=== PATIENT | female | born 1995 | race African-American/Black ===

== ENCOUNTER 2016-06-19 18:08 | Inpatient (IN) | payer OTHER ==
[2016-06-19] MEDS ORDERED: LACTATED RINGERS 1,000 ML IV SCH ×2 (19:00→21:00)
[2016-06-19] MEDS ORDERED: LACTATED RINGERS 500 ML IV ONE (19:00)
[2016-06-19] MEDS ORDERED: BICITRA ONE (19:13)
[2016-06-19] MEDS ORDERED: PEPCID IV ONE (19:13)
[2016-06-19] MEDS ORDERED: ANCEF/STERILE WATER 2 GM/20 ML 0 GM/0 ML SYRINGE IV ONE (19:13)
[2016-06-19] MEDS ORDERED: REGLAN ONE (19:13)
[2016-06-19] MEDS ORDERED: PITOCin/NS 20 UNIT/1000ML DRIP 20,000 MILLIUNITS/1,000 ML BAG IV ONE (19:13)
[2016-06-19] MEDS ORDERED: STADOL ONE (19:54)
[2016-06-19] MEDS ORDERED: STADOL IV PRN (20:23)
[2016-06-19] MEDS ORDERED: NARCAN 0.4 MG/1 ML IV PRN (20:23)
[2016-06-19] MEDS ORDERED: BRETHINE IVP PRN (20:23)
[2016-06-19] MEDS ORDERED: PHENERGAN PO PRN (20:23)
[2016-06-19] MEDS ORDERED: SUBLIMAZE IV PRN (20:23)
[2016-06-19] MEDS ORDERED: MINERAL OIL PO PRN (20:23)
[2016-06-19] MEDS ORDERED: ZOFRAN IV PRN (20:23)
[2016-06-19] MEDS ORDERED: BRETHINE SUB-Q PRN (20:30)
[2016-06-19] MEDS ORDERED: ePHEDrine SULFATE IV PRN ×2 (20:32→21:48)
--- NOTE | 2016-06-19 20:40 | History and Physical Report ---
History of Present Illness Date of examination: 06/19/16 Date of admission: 06/19/16 19:46 Chief complaint: severe abdominal pains History of present illness: Pt is a 20yo BF EDC 08/25/16; EGA 30 3/7 weeks presents to [facility] L&D complaining of acute severe abdominal pain that begun ~ 5pm whilst attending a baby shower. She denies vaginal bleeding or ROM. She received care in [place] and course has been unremarkable. She had a normal u/s yesterday, but today Ob u/s showed IUFD with echogenic mass @ placenta ( possible abruption). No records are available. Past History Past Medical History: no pertinent history Past Surgical History: no surgical history Family/Genetic History: none Social history: no significant social history, single - Obstetrical History Expected Date of Delivery: 08/25/16 Actual Gestation: 30 Week(s) 4 Day(s) : 2 Medications and Allergies Allergies Allergy/AdvReac Type Severity Reaction Status Date / Time No Known Allergies Allergy Verified 06/12/16 10:38 Home Medications Medication Instructions Recorded Confirmed Last Taken Type Multiple Vitamins For Women 1 tab PO DAILY 06/12/16 06/12/16 06/12/16 08:30 History 1 Active Meds: Active Medications Butorphanol Tartrate (Stadol) 2 mg IV Q2H PRN PRN Reason: Pain , Severe (7-10) Ephedrine Sulfate (Ephedrine Sulfate) 10 mg IV Q2M PRN PRN Reason: Hypotension Stop: 06/19/16 20:37 Fentanyl (Sublimaze) 100 mcg IV Q2H PRN PRN Reason: Labor Pain Lactated Ringer's (Lactated Ringers) 1,000 mls @ 125 mls/hr IV DIRECT ELLA Lactated Ringer's (Lactated Ringers) 1,000 mls @ 125 mls/hr IV DIRECT ELLA Oxytocin/Sodium Chloride (Pitocin/Ns 20 Unit/1000ml Drip) 20,000 milliunits in 1,000 mls @ 125 mls/hr IV DIRECT ELLA Oxytocin/Sodium Chloride (Pitocin/Ns 30 Unit/500ml) 30,000 milliunits in 500 mls @ 1 mls/hr IV TITR ELLA; 1 MILLIUNITS/MIN PRN Reason: Protocol Oxytocin/Sodium Chloride (Pitocin/Ns 30 Unit/500ml) 30,000 milliunits in 500 mls @ 125 mls/hr IV TITR ELLA PRN Reason: Protocol Mineral Oil (Mineral Oil) 30 ml PO QHS PRN PRN Reason: Constipation Naloxone HCl (Narcan 0.4 Mg/1 Ml) 0.1 mg IV Q2MIN PRN PRN Reason: Res Rate </= 8 or 02 SAT < 92% Ondansetron HCl (Zofran) 4 mg IV Q8H PRN PRN Reason: Nausea And Vomiting Promethazine HCl (Phenergan) 25 mg PO Q6H PRN PRN Reason: Nausea And Vomiting Review of Systems All systems: negative - Vital Signs Vital signs: Vital Signs Pulse Pulse Ox 58 L 100 06/19/16 18:22 06/19/16 18:22 Temp Pulse Resp BP Pulse Ox 73 14 140/87 100 06/19/16 20:01 06/19/16 19:55 06/19/16 20:01 06/19/16 19:22 - Physical Exam Breasts: Positive: deferred Cardiovascular: Regular rate Lungs: Positive: Clear to auscultation Abdomen: Positive: normal appearance, guarding Genitourinary (Female): Positive: normal external genitalia Vagina: Positive: normal moisture Uterus: Positive: enlarged Extremities: Positive: normal - Obstetrical FHR: other (No FHT's) Uterine Contraction Monitor Mode: External Cervical Dilatation: 1 Cervical Effacement Percentage: 50 Uterine Contraction Pattern: Irregular Uterine Contraction Intensity: Moderate Results Result Diagrams: 06/19/16 20:37 All other labs normal. Ultrasound: report reviewed Assessment and Plan - Patient Problems (1) 30 weeks gestation of Onset Date: 06/19/16 Current Visit: Yes Status: Acute Plan to address problem: A: IUP @ 30 3/7 weeks IUFD P: Admit to L&D for expectant vaginal Obtain labs including urine drug screen (2) Intrauterine in Onset Date: 06/19/16 Current Visit: Yes Status: Acute Qualifiers: Fetus number: single or unspecified fetus Qualified Code(s): O36.4XX0 - Maternal care for intrauterine , not applicable or unspecified
[2016-06-19 20:52] LABS: Urine Drugs of Abuse Note Disclamer
[2016-06-19] MEDS ORDERED: ePHEDrine SULFATE ONE (20:54)
[2016-06-19 20:56] LABS: Hematocrit 33.8 % (30.3-42.9); Hemoglobin 11.1 gm/dl (10.1-14.3); Mean Corpuscular HGB Conc 33 % (30-34); Mean Corpuscular Hemoglobin 28 pg (28-32); Mean Corpuscular Volume 84 fl (79-97); Platelet Count 139 K/mm3 (140-440); Red Blood Count 4.03 M/mm3 (3.65-5.03); Red Cell Distribution Width 14.2 % (13.2-15.2)
[2016-06-19 21:00] LABS: White Blood Count 23.8 K/mm3 (4.5-11.0)
[2016-06-19] MEDS ORDERED: PITOCin/NS 30 UNIT/500ML 30,000 MILLIUNITS/500 ML BAG IV SCH (21:00)
[2016-06-19] MEDS ORDERED: PITOCin/NS 20 UNIT/1000ML DRIP 20,000 MILLIUNITS/1,000 ML BAG IV SCH (21:00)
[2016-06-19 21:19] LABS: Bacteria,Urine 1+ /HPF (Negative); Mucus,Urine 1+ /HPF
[2016-06-19 21:31] LABS: Bilirubin,Urine Negative (Negative); Blood,Urine Moderate (Negative); Ketones,Urine Negative (Negative); Nitrite,Urine Negative (Negative); PH,Urine 6.5 (5.0-7.0); Urobilinogen,Urine 0.2 mg/dL (<2.0)
[2016-06-19 21:32] LABS: Leukocyte Esterase,Urine Negative (Negative)
[2016-06-19] MEDS ORDERED: fentaNYL-BUPIV 2 MCG/ML-0.125% 200 MCG/100 ML BAG EPIDURAL ONE (21:44)
--- NOTE | 2016-06-19 21:47 | Anesthesia Consultation ---
Anesthesia Consult and Med Hx Date of service: 06/19/16 - Airway Anesthetic Teeth Evaluation: Good ROM Head & Neck: Adequate Mental/Hyoid Distance: Adequate Mallampati Class: Class II Intubation Access Assessment: Probably Good - Pulmonary Exam CTA: Yes - Cardiac Exam Cardiac Exam: RRR - Pre-Operative Health Status ASA Pre-Surgery Classification: ASA2 Proposed Anesthetic Plan: Epidural, Spinal - Pulmonary Hx Smoking: Yes Hx Asthma: No - Cardiovascular System Hx Hypertension: No - Central Nervous System Hx Seizures: No Hx Psychiatric Problems: No - Endocrine Hx Renal Disease: No Hx Hypothyroidism: No Hx Hyperthyroidism: No - Hematic Hx Anemia: No Hx Sickle Cell Disease: No - Other Systems Hx Alcohol Use: No Hx Substance Use: Yes (marijuana) Hx Obesity: Yes - Additional Comments Anesthesia Medical History Comments: IUFD @ 30 WEEKS
[2016-06-19 21:49] LABS: HIV-1 Antigen p24 Non React (Non React); HIVR-1/2 Ab Non React (Non React)
[2016-06-19] MEDS ORDERED: fentaNYL-BUPIV 2 MCG/ML-0.125% 200 MCG/100 ML BAG EPIDURAL SCH (22:00)
[2016-06-19 22:08] LABS: Anisocytosis 1+; Basophils % (Manual) 0 % (0.0-1.8); Blastocytes % (Manual) 0 %; Diff Status Complete; Eosinophils % (Manual) 0 % (0.0-4.3); Platelet Estimate Consistent w Auto
[2016-06-19] MEDS: PITOCin/NS 30 UNIT/500ML 30,000 MILLIUNITS/500 ML BAG IV SCH (22:28)
[2016-06-20] MEDS: PITOCin/NS 30 UNIT/500ML 30,000 MILLIUNITS/500 ML BAG IV SCH ×2 (01:22→03:14)
[2016-06-20] MEDS ORDERED: WATER FOR IRRIG STERILE IR ONE (03:06)
[2016-06-20] MEDS ORDERED: NACL 0.9% IR ONE (03:06)
--- NOTE | 2016-06-20 03:18 | Progress Note ---
Assessment and Plan - Patient Problems (1) 30 weeks gestation of Onset Date: 06/19/16 Current Visit: Yes Status: Acute Plan to address problem: A: IUP @ 30 3/7 weeks IUFD Anuria Maternal tachycardia P: Will obtain CBC, CMP, PT,PTT and Fibrinogen - assess for occult bleeding, possible uterine rupture (2) Intrauterine in Onset Date: 06/19/16 Current Visit: Yes Status: Acute Qualifiers: Fetus number: single or unspecified fetus Qualified Code(s): O36.4XX0 - Maternal care for intrauterine , not applicable or unspecified (3) Anuria Onset Date: 06/20/16 Current Visit: Yes Status: Acute (4) Tachycardia with heart rate 121-140 beats per minute Onset Date: 06/20/16 Current Visit: Yes Status: Acute Subjective - Subjective Date of service: 06/20/16 Principal diagnosis: IUP @ 30 3/7 weeks; IUFD; Anuria Interval history: Pt is resting comfortably with epidural in place. Currently on pitocin 6mu/min and elizabeth q 2mins. Patient reports: loss of fluid (AROM - bloody fluid), vaginal bleeding ( moderate bleeding), no new complaints, no contractions Objective - Vital Signs Vital Signs: Vital Signs - 12hr 06/19/16 06/19/16 06/19/16 18:22 18:27 18:30 Temperature Pulse Rate 58 L 55 L 59 L Respiratory Rate Blood Pressure Blood Pressure [Left Arm] O2 Sat by Pulse 100 100 72 L Oximetry 06/19/16 06/19/16 06/19/16 18:32 18:37 18:38 Temperature Pulse Rate 57 L 53 L 52 L Respiratory Rate Blood Pressure 177/95 Blood Pressure [Left Arm] O2 Sat by Pulse 100 100 Oximetry 06/19/16 06/19/16 06/19/16 18:41 18:42 18:44 Temperature Pulse Rate 70 59 L 70 Respiratory Rate Blood Pressure 152/82 Blood Pressure [Left Arm] O2 Sat by Pulse 99 83 L Oximetry 06/19/16 06/19/16 06/19/16 18:47 18:52 18:55 Temperature Pulse Rate 61 59 L 65 Respiratory Rate Blood Pressure 167/90 135/65 Blood Pressure [Left Arm] O2 Sat by Pulse 100 99 Oximetry 06/19/16 06/19/16 06/19/16 18:57 19:02 19:03 Temperature Pulse Rate 59 L 54 L 62 Respiratory Rate Blood Pressure 133/89 Blood Pressure [Left Arm] O2 Sat by Pulse 99 99 Oximetry 06/19/16 06/19/16 06/19/16 19:05 19:07 19:09 Temperature Pulse Rate 74 79 73 Respiratory Rate Blood Pressure 133/94 Blood Pressure [Left Arm] O2 Sat by Pulse 99 78 L Oximetry 06/19/16 06/19/16 06/19/16 19:10 19:12 19:16 Temperature Pulse Rate 72 107 H 56 L Respiratory Rate Blood Pressure 138/90 118/79 Blood Pressure [Left Arm] O2 Sat by Pulse 99 Oximetry 06/19/16 06/19/16 06/19/16 19:17 19:21 19:22 Temperature Pulse Rate 67 55 L 61 Respiratory Rate Blood Pressure 156/90 Blood Pressure [Left Arm] O2 Sat by Pulse 100 100 Oximetry 06/19/16 06/19/16 06/19/16 19:55 20:01 20:52 Temperature 97.9 F Pulse Rate 73 Respiratory 14 20 20 Rate Blood Pressure 140/87 Blood Pressure 140/87 [Left Arm] O2 Sat by Pulse Oximetry 06/19/16 06/19/16 06/19/16 21:29 21:30 21:35 Temperature Pulse Rate 142 H 137 H 129 H Respiratory Rate Blood Pressure 152/70 144/77 Blood Pressure [Left Arm] O2 Sat by Pulse 99 98 Oximetry 06/19/16 06/19/16 06/19/16 21:36 21:42 21:44 Temperature Pulse Rate 113 H 112 H 111 H Respiratory Rate Blood Pressure 124/77 113/76 112/75 Blood Pressure [Left Arm] O2 Sat by Pulse Oximetry 06/19/16 06/19/16 06/19/16 21:46 21:48 21:50 Temperature Pulse Rate 115 H 114 H 105 H Respiratory Rate Blood Pressure 113/76 111/79 112/78 Blood Pressure [Left Arm] O2 Sat by Pulse 100 Oximetry 06/19/16 06/19/16 06/19/16 21:52 21:53 21:54 Temperature Pulse Rate 110 H 107 H 113 H Respiratory Rate Blood Pressure 114/81 115/83 Blood Pressure [Left Arm] O2 Sat by Pulse 100 Oximetry 06/19/16 06/19/16 06/19/16 21:56 21:58 22:00 Temperature Pulse Rate 106 H 115 H 116 H Respiratory 20 Rate Blood Pressure 115/82 115/84 122/70 Blood Pressure [Left Arm] O2 Sat by Pulse 100 Oximetry 06/19/16 06/19/16 06/19/16 22:02 22:03 22:07 Temperature Pulse Rate 130 H 130 H 126 H Respiratory Rate Blood Pressure 112/88 107/66 Blood Pressure [Left Arm] O2 Sat by Pulse 72 L Oximetry 06/19/16 06/19/16 06/19/16 22:08 22:10 22:12 Temperature Pulse Rate 88 100 H 126 H Respiratory Rate Blood Pressure 115/77 113/79 109/75 Blood Pressure [Left Arm] O2 Sat by Pulse 89 Oximetry 06/19/16 06/19/16 06/19/16 22:13 22:16 22:17 Temperature Pulse Rate 122 H 120 H 106 H Respiratory Rate Blood Pressure 114/57 Blood Pressure [Left Arm] O2 Sat by Pulse 72 L 83 L Oximetry 06/19/16 06/19/16 06/19/16 22:18 22:20 22:22 Temperature Pulse Rate 102 H 110 H 103 H Respiratory Rate Blood Pressure 118/70 108/73 107/73 Blood Pressure [Left Arm] O2 Sat by Pulse 76 L Oximetry 06/19/16 06/19/16 06/19/16 22:23 22:24 22:26 Temperature Pulse Rate 104 H 109 H 122 H Respiratory Rate Blood Pressure 106/75 105/77 Blood Pressure [Left Arm] O2 Sat by Pulse 92 Oximetry 06/19/16 06/19/16 06/19/16 22:28 22:30 22:32 Temperature Pulse Rate 126 H 115 H 110 H Respiratory Rate Blood Pressure 108/80 112/80 112/75 Blood Pressure [Left Arm] O2 Sat by Pulse 92 Oximetry 06/19/16 06/19/16 06/19/16 22:33 22:34 22:36 Temperature Pulse Rate 113 H 160 H 121 H Respiratory Rate Blood Pressure 100/63 133/86 Blood Pressure [Left Arm] O2 Sat by Pulse 96 Oximetry 06/19/16 06/19/16 06/19/16 22:38 22:40 22:42 Temperature Pulse Rate 107 H 100 H 126 H Respiratory Rate Blood Pressure 116/82 110/82 108/84 Blood Pressure [Left Arm] O2 Sat by Pulse 100 90 Oximetry 06/19/16 06/19/16 06/19/16 22:43 22:48 22:49 Temperature Pulse Rate 126 H 130 H 112 H Respiratory Rate Blood Pressure 121/77 Blood Pressure [Left Arm] O2 Sat by Pulse 88 76 L Oximetry 06/19/16 06/19/16 06/19/16 22:50 22:52 22:53 Temperature Pulse Rate 106 H 93 H 96 H Respiratory Rate Blood Pressure 114/82 109/76 Blood Pressure [Left Arm] O2 Sat by Pulse 100 Oximetry 06/19/16 06/19/16 06/19/16 22:58 23:03 23:07 Temperature Pulse Rate 113 H 122 H 111 H Respiratory Rate Blood Pressure 181/70 Blood Pressure [Left Arm] O2 Sat by Pulse 100 100 Oximetry 06/19/16 06/19/16 06/19/16 23:08 23:11 23:13 Temperature Pulse Rate 109 H 121 H 129 H Respiratory Rate Blood Pressure 122/70 Blood Pressure [Left Arm] O2 Sat by Pulse 100 100 Oximetry 06/19/16 06/19/16 06/19/16 23:18 23:23 23:28 Temperature Pulse Rate 122 H 110 H 110 H Respiratory Rate Blood Pressure Blood Pressure [Left Arm] O2 Sat by Pulse 100 100 100 Oximetry 06/19/16 06/19/16 06/19/16 23:31 23:33 23:38 Temperature Pulse Rate 114 H 111 H 123 H Respiratory Rate Blood Pressure 110/68 Blood Pressure [Left Arm] O2 Sat by Pulse 100 100 Oximetry 06/19/16 06/19/16 06/19/16 23:43 23:48 23:53 Temperature Pulse Rate 114 H 113 H 130 H Respiratory Rate Blood Pressure Blood Pressure [Left Arm] O2 Sat by Pulse 100 100 100 Oximetry 06/19/16 06/20/16 06/20/16 23:58 00:00 00:03 Temperature Pulse Rate 112 H 123 H 118 H Respiratory Rate Blood Pressure 115/68 Blood Pressure [Left Arm] O2 Sat by Pulse 100 100 Oximetry 06/20/16 06/20/16 06/20/16 00:08 00:13 00:18 Temperature Pulse Rate 138 H 123 H 133 H Respiratory Rate Blood Pressure Blood Pressure [Left Arm] O2 Sat by Pulse 100 100 99 Oximetry 06/20/16 06/20/16 06/20/16 00:23 00:28 00:30 Temperature Pulse Rate 146 H 133 H 136 H Respiratory Rate Blood Pressure 119/75 Blood Pressure [Left Arm] O2 Sat by Pulse 100 100 Oximetry 06/20/16 06/20/16 06/20/16 00:33 00:38 00:43 Temperature Pulse Rate 137 H 126 H 133 H Respiratory Rate Blood Pressure Blood Pressure [Left Arm] O2 Sat by Pulse 100 100 100 Oximetry 06/20/16 06/20/16 06/20/16 00:49 00:54 00:59 Temperature Pulse Rate 129 H 129 H Respiratory Rate Blood Pressure Blood Pressure [Left Arm] O2 Sat by Pulse 89 100 100 Oximetry 06/20/16 06/20/16 06/20/16 01:02 01:04 01:09 Temperature Pulse Rate 136 H 138 H 131 H Respiratory Rate Blood Pressure 159/68 Blood Pressure [Left Arm] O2 Sat by Pulse 100 100 Oximetry 06/20/16 06/20/16 06/20/16 01:14 01:19 01:24 Temperature Pulse Rate 139 H 140 H 131 H Respiratory Rate Blood Pressure Blood Pressure [Left Arm] O2 Sat by Pulse 100 100 100 Oximetry 06/20/16 06/20/16 06/20/16 01:29 01:30 01:34 Temperature Pulse Rate 133 H 155 H 132 H Respiratory Rate Blood Pressure 100/65 Blood Pressure [Left Arm] O2 Sat by Pulse 100 100 Oximetry 06/20/16 06/20/16 06/20/16 01:39 01:44 01:49 Temperature Pulse Rate 130 H 128 H 128 H Respiratory Rate Blood Pressure Blood Pressure [Left Arm] O2 Sat by Pulse 99 99 100 Oximetry 06/20/16 06/20/16 06/20/16 01:54 01:59 02:04 Temperature Pulse Rate 133 H 130 H 124 H Respiratory Rate Blood Pressure Blood Pressure [Left Arm] O2 Sat by Pulse 100 99 99 Oximetry 06/20/16 06/20/16 06/20/16 02:09 02:14 02:19 Temperature Pulse Rate 125 H 124 H 126 H Respiratory Rate Blood Pressure Blood Pressure [Left Arm] O2 Sat by Pulse 100 100 100 Oximetry 06/20/16 06/20/16 06/20/16 02:24 02:29 02:34 Temperature Pulse Rate 113 H 113 H 128 H Respiratory Rate Blood Pressure Blood Pressure [Left Arm] O2 Sat by Pulse 100 100 99 Oximetry 06/20/16 06/20/16 06/20/16 02:39 02:44 02:49 Temperature Pulse Rate 129 H 136 H 128 H Respiratory Rate Blood Pressure Blood Pressure [Left Arm] O2 Sat by Pulse 97 83 L 100 Oximetry 06/20/16 06/20/16 06/20/16 02:54 02:58 03:01 Temperature Pulse Rate 132 H 134 H 134 H Respiratory Rate Blood Pressure 108/69 Blood Pressure [Left Arm] O2 Sat by Pulse 100 100 Oximetry 06/20/16 06/20/16 06/20/16 03:04 03:09 03:12 Temperature Pulse Rate 120 H 122 H 114 H Respiratory Rate Blood Pressure Blood Pressure [Left Arm] O2 Sat by Pulse 100 100 94 Oximetry - Exam Cardiovascular: Regular rate Abdomen: Present: normal appearance, soft Uterus: Present: normal Cervical Dilatation: 2 Cervical Effacement Percentage: 80 station: -2 - Labs Labs: Abnormal Labs 06/19/16 20:37 WBC 23.8 H Plt Count 139 L Seg Neuts % (Manual) 92.5 H Lymphocytes % (Manual) 3.5 L Seg Neutrophils # Man 22.0 H Lymphocytes # (Manual) 0.8 L Monocytes # (Manual) 1.0 H Laboratory Results - last 24 hr 06/19/16 06/19/16 06/19/16 18:45 18:45 20:37 WBC 23.8 H RBC 4.03 Hgb 11.1 Hct 33.8 MCV 84 MCH 28 MCHC 33 RDW 14.2 Plt Count 139 L Add Manual Diff Complete Total Counted 200 Seg Neuts % (Manual) 92.5 H Band Neutrophils % 0 Lymphocytes % (Manual) 3.5 L Reactive Lymphs % (Man) 0 Monocytes % (Manual) 4.0 Eosinophils % (Manual) 0 Basophils % (Manual) 0 Metamyelocytes % 0 Myelocytes % 0 Promyelocytes % 0 Blast Cells % 0 Nucleated RBC % Not Reportable Seg Neutrophils # Man 22.0 H Band Neutrophils # 0.0 Lymphocytes # (Manual) 0.8 L Abs React Lymphs (Man) 0.0 Monocytes # (Manual) 1.0 H Eosinophils # (Manual) 0.0 Basophils # (Manual) 0.0 Metamyelocytes # 0.0 Myelocytes # 0.0 Promyelocytes # 0.0 Blast Cells # 0.0 WBC Morphology Not Reportable Hypersegmented Neuts Not Reportable Hyposegmented Neuts Not Reportable Hypogranular Neuts Not Reportable Smudge Cells Not Reportable Toxic Granulation Not Reportable Toxic Vacuolation Not Reportable Dohle Bodies Not Reportable Pelger-Huet Anomaly Not Reportable Rj Rods Not Reportable Platelet Estimate Consistent w auto Clumped Platelets Not Reportable Plt Clumps, EDTA Not Reportable Large Platelets Not Reportable Giant Platelets Not Reportable Platelet Satelliting Not Reportable Plt Morphology Comment Not Reportable RBC Morphology Not Reportable Dimorphic RBCs Not Reportable Polychromasia Not Reportable Hypochromasia Not Reportable Poikilocytosis Not Reportable Anisocytosis 1+ Microcytosis Not Reportable Macrocytosis Not Reportable Spherocytes Not Reportable Pappenheimer Bodies Not Reportable Sickle Cells Not Reportable Target Cells Not Reportable Tear Drop Cells Not Reportable Ovalocytes Not Reportable Helmet Cells Not Reportable [place] Bodies Not Reportable [place]in[place] Rings Not Reportable [place] Cells Not Reportable Bite Cells Not Reportable Crenated Cell Not Reportable Elliptocytes Not Reportable Acanthocytes (Spur) Not Reportable Rouleaux Not Reportable Hemoglobin C Crystals Not Reportable Schistocytes Not Reportable Malaria parasites Not Reportable Praneeth Bodies Not Reportable Hem Pathologist Commnt No Urine Color Yellow Urine Turbidity Turbid Urine pH 6.5 Ur Specific [place] 1.025 Urine Protein 30 mg/dl Urine Glucose (UA) Negative Urine Ketones Negative Urine Blood Moderate Urine Nitrite Negative Ur Reducing Substances Not Reportable Urine Bilirubin Negative Urine Ictotest Not Reportable Urine Urobilinogen 0.2 Ur Leukocyte Esterase Negative Urine WBC (Auto) 1.0 Urine RBC (Auto) 4.0 U Epithel Cells (Auto) 1.0 Urine Bacteria (Auto) 1+ Urine Mucus 1+ Urine Opiates Screen Presumptive negative Urine Methadone Screen Presumptive negative Ur Barbiturates Screen Presumptive negative Ur Phencyclidine Scrn Presumptive negative Ur Amphetamines Screen Presumptive negative U Benzodiazepines Scrn Presumptive negative Urine Cocaine Screen Presumptive negative U Marijuana (THC) Screen Presumptive positive Drugs of Abuse Note Disclamer Hep Bs Antigen Hepatitis C Antibody HIV 1&2 Antibody Rapid HIV P24 Antigen Rubella IgG Antibody Blood Type Antibody Screen 06/19/16 06/19/16 06/19/16 20:37 20:37 20:37 WBC RBC Hgb Hct MCV MCH MCHC RDW Plt Count Add Manual Diff Total Counted Seg Neuts % (Manual) Band Neutrophils % Lymphocytes % (Manual) Reactive Lymphs % (Man) Monocytes % (Manual) Eosinophils % (Manual) Basophils % (Manual) Metamyelocytes % Myelocytes % Promyelocytes % Blast Cells % Nucleated RBC % Seg Neutrophils # Man Band Neutrophils # Lymphocytes # (Manual) Abs React Lymphs (Man) Monocytes # (Manual) Eosinophils # (Manual) Basophils # (Manual) Metamyelocytes # Myelocytes # Promyelocytes # Blast Cells # WBC Morphology Hypersegmented Neuts Hyposegmented Neuts Hypogranular Neuts Smudge Cells Toxic Granulation Toxic Vacuolation Dohle Bodies Pelger-Huet Anomaly Rj Rods Platelet Estimate Clumped Platelets Plt Clumps, EDTA Large Platelets Giant Platelets Platelet Satelliting Plt Morphology Comment RBC Morphology Dimorphic RBCs Polychromasia Hypochromasia Poikilocytosis Anisocytosis Microcytosis Macrocytosis Spherocytes Pappenheimer Bodies Sickle Cells Target Cells Tear Drop Cells Ovalocytes Helmet Cells [place] Bodies [place] Rings [place]aver[place] Cells Bite Cells Crenated Cell Elliptocytes Acanthocytes (Spur) Rouleaux Hemoglobin C Crystals Schistocytes Malaria parasites Praneeth Bodies Hem Pathologist Commnt Urine Color Urine Turbidity Urine pH Ur Specific [place] Urine Protein Urine Glucose (UA) Urine Ketones Urine Blood Urine Nitrite Ur Reducing Substances Urine Bilirubin Urine Ictotest Urine Urobilinogen Ur Leukocyte Esterase Urine WBC (Auto) Urine RBC (Auto) U Epithel Cells (Auto) Urine Bacteria (Auto) Urine Mucus Urine Opiates Screen Urine Methadone Screen Ur Barbiturates Screen Ur Phencyclidine Scrn Ur Amphetamines Screen U Benzodiazepines Scrn Urine Cocaine Screen U Marijuana (THC) Screen Drugs of Abuse Note Hep Bs Antigen Non-reactive Hepatitis C Antibody Non-reactive HIV 1&2 Antibody Rapid HIV P24 Antigen Rubella IgG Antibody Immune Blood Type B POSITIVE Antibody Screen Negative 06/19/16 20:37 WBC RBC Hgb Hct MCV MCH MCHC RDW Plt Count Add Manual Diff Total Counted Seg Neuts % (Manual) Band Neutrophils % Lymphocytes % (Manual) Reactive Lymphs % (Man) Monocytes % (Manual) Eosinophils % (Manual) Basophils % (Manual) Metamyelocytes % Myelocytes % Promyelocytes % Blast Cells % Nucleated RBC % Seg Neutrophils # Man Band Neutrophils # Lymphocytes # (Manual) Abs React Lymphs (Man) Monocytes # (Manual) Eosinophils # (Manual) Basophils # (Manual) Metamyelocytes # Myelocytes # Promyelocytes # Blast Cells # WBC Morphology Hypersegmented Neuts Hyposegmented Neuts Hypogranular Neuts Smudge Cells Toxic Granulation Toxic Vacuolation Dohle Bodies Pelger-Huet Anomaly Rj Rods Platelet Estimate Clumped Platelets Plt Clumps, EDTA Large Platelets Giant Platelets Platelet Satelliting Plt Morphology Comment RBC Morphology Dimorphic RBCs Polychromasia Hypochromasia Poikilocytosis Anisocytosis Microcytosis Macrocytosis Spherocytes Pappenheimer Bodies Sickle Cells Target Cells Tear Drop Cells Ovalocytes Helmet Cells [place] Bodies [place] Rings Ludivina Cells Bite Cells Crenated Cell Elliptocytes Acanthocytes (Spur) Rouleaux Hemoglobin C Crystals Schistocytes Malaria parasites Praneeth Bodies Hem Pathologist Commnt Urine Color Urine Turbidity Urine pH Ur Specific [place] Urine Protein Urine Glucose (UA) Urine Ketones Urine Blood Urine Nitrite Ur Reducing Substances Urine Bilirubin Urine Ictotest Urine Urobilinogen Ur Leukocyte Esterase Urine WBC (Auto) Urine RBC (Auto) U Epithel Cells (Auto) Urine Bacteria (Auto) Urine Mucus Urine Opiates Screen Urine Methadone Screen Ur Barbiturates Screen Ur Phencyclidine Scrn Ur Amphetamines Screen U Benzodiazepines Scrn Urine Cocaine Screen U Marijuana (THC) Screen Drugs of Abuse Note Hep Bs Antigen Hepatitis C Antibody HIV 1&2 Antibody Rapid Non react HIV P24 Antigen Non react Rubella IgG Antibody Blood Type Antibody Screen
[2016-06-20 03:32] LABS: Basophils % (Auto) 0.2 % (0.0-1.8); Hematocrit 26.4 % (30.3-42.9); Hemoglobin 8.5 gm/dl (10.1-14.3); Mean Corpuscular HGB Conc 32 % (30-34); Mean Corpuscular Hemoglobin 27 pg (28-32); Mean Corpuscular Volume 86 fl (79-97); Red Blood Count 3.08 M/mm3 (3.65-5.03); Red Cell Distribution Width 13.9 % (13.2-15.2); White Blood Count 16.8 K/mm3 (4.5-11.0)
[2016-06-20 03:38] LABS: Platelet Count 58 K/mm3 (140-440)
[2016-06-20] MEDS ORDERED: BICITRA ONE (03:40)
[2016-06-20] MEDS ORDERED: REGLAN ONE (03:40)
[2016-06-20] MEDS ORDERED: ANCEF/STERILE WATER 2 GM/20 ML 2 GM/20 ML SYRINGE IV ONE ×2 (03:41→04:07)
[2016-06-20] MEDS ORDERED: PEPCID IV ONE ×3 (03:41→08:46)
[2016-06-20] MEDS ORDERED: NACL 0.9% 500 ML 500 ML IV ONE ×4 (03:43→23:48)
[2016-06-20 03:48] LABS: Albumin 2.9 g/dL (3.9-5); Albumin/Globulin Ratio 1.3 %; BUN/Creatinine Ratio 8.88; Bilirubin,Total 0.7 mg/dL (0.1-1.2); Calcium 7.6 mg/dL (8.4-10.2); Chloride 103.5 mmol/L (98-107); Total Protein 5.2 g/dL (6.3-8.2)
[2016-06-20 03:54] LABS: INR 1.61 (0.87-1.13)
[2016-06-20 03:55] LABS: Partial Thromboplastin Time 39.4 Sec. (24.2-36.6)
[2016-06-20] MEDS ORDERED: D50W (25GM) IV ONE ×2 (04:05→08:30)
[2016-06-20] MEDS ORDERED: CALCIUM CHLORIDE IVP ONE (04:06)
[2016-06-20] MEDS ORDERED: SODIUM BICARBONATE IV ONE ×3 (04:06→12:00)
[2016-06-20] MEDS ORDERED: CALCIUM CHLORIDE IV ONE ×2 (04:06→12:00)
[2016-06-20] MEDS ORDERED: DIPRIVAN 10 MG/ML IV ONE (04:06)
[2016-06-20] MEDS ORDERED: KIONEX PO ONE (04:07)
--- NOTE | 2016-06-20 04:17 | Event Note ---
Date: 06/20/16 I was consulted to see this patient for hyperkalemia. Nurse informed me that right after consult was called, the patient was rushed to the OR for emergent surgery. I have placed the orders for hyperkalemia to be given, Dr Patrick was notified of these orders
[2016-06-20] MEDS ORDERED: METHERGINE IM ONE (04:20)
[2016-06-20] MEDS ORDERED: ZOFRAN ONE (04:41)
[2016-06-20] MEDS ORDERED: MOTRIN PO PRN (05:00)
[2016-06-20] MEDS ORDERED: MILK OF MAGNESIA PO PRN (05:00)
[2016-06-20] MEDS ORDERED: TYLENOL PO PRN (05:00)
[2016-06-20] MEDS ORDERED: LANSINOH TP PRN ×2 (05:00→12:30)
[2016-06-20] MEDS ORDERED: SODIUM CHLORIDE FLUSH SYRINGE 10 ML IV PRN ×2 (05:00→13:00)
[2016-06-20] MEDS ORDERED: MYLICON PO PRN (05:00)
[2016-06-20] MEDS ORDERED: TORADOL IV PRN (05:00)
[2016-06-20] MEDS ORDERED: PITOCin/NS 20 UNIT/1000ML DRIP 20,000 MILLIUNITS/1,000 ML BAG IV SCH (05:00)
[2016-06-20] MEDS ORDERED: SENOKOT PO PRN (05:00)
[2016-06-20] MEDS ORDERED: NARCAN 0.4 MG/1 ML IV PRN ×2 (05:00→12:30)
[2016-06-20] MEDS ORDERED: TUCKS PAD TP PRN ×2 (05:00→13:00)
--- NOTE | 2016-06-20 05:08 | Anesthesia Day of Surgery ---
Anesthesia Day of Surgery - Day of Surgery Patient Examined: Yes Patient H&P Reviewed: Yes Patient is NPO: Yes
[2016-06-20 05:09] LABS: Fibrinogen < 60 mg/dl (211-480)
--- NOTE | 2016-06-20 05:09 | Post Anesthesia Evaluation ---
- Post Anesthesia Evaluation Patient Participated: Yes Airway Patent: Yes Stable Respiratory Function: Yes Nausea/Vomiting: No Temp > 96.8F: Yes Pain Manageable: Yes Adequeate Hydration: Yes Anesthesia Complications: No Block Receding Appropriately: Not Applicable Patient on Ventilator: No Other Comments: Patient in DIC, ARF, coagulopathic. OR nurse to give medications ordered by hospitalist for hyperkalemia. Blood orders per Dr. Patrick.
[2016-06-20] MEDS ORDERED: NACL 0.9% 1000 ML 1,000 ML ONE (05:10)
--- NOTE | 2016-06-20 05:12 | Progress Note ---
Subjective Date of service: 06/20/16 Principal diagnosis: IUP @ 30 3/7 weeks; IUFD; Anuria, Thrombocytopenia Interval history: Epidural catheter not removed due to platelets being 58,000. Will remain until platelets 100,000. Objective - Constitutional Vitals: Vital Signs - 12hr 06/19/16 06/19/16 06/19/16 18:22 18:27 18:30 Temperature Pulse Rate 58 L 55 L 59 L Respiratory Rate Blood Pressure Blood Pressure [Left Arm] O2 Sat by Pulse 100 100 72 L Oximetry 06/19/16 06/19/16 06/19/16 18:32 18:37 18:38 Temperature Pulse Rate 57 L 53 L 52 L Respiratory Rate Blood Pressure 177/95 Blood Pressure [Left Arm] O2 Sat by Pulse 100 100 Oximetry 06/19/16 06/19/16 06/19/16 18:41 18:42 18:44 Temperature Pulse Rate 70 59 L 70 Respiratory Rate Blood Pressure 152/82 Blood Pressure [Left Arm] O2 Sat by Pulse 99 83 L Oximetry 06/19/16 06/19/16 06/19/16 18:47 18:52 18:55 Temperature Pulse Rate 61 59 L 65 Respiratory Rate Blood Pressure 167/90 135/65 Blood Pressure [Left Arm] O2 Sat by Pulse 100 99 Oximetry 06/19/16 06/19/16 06/19/16 18:57 19:02 19:03 Temperature Pulse Rate 59 L 54 L 62 Respiratory Rate Blood Pressure 133/89 Blood Pressure [Left Arm] O2 Sat by Pulse 99 99 Oximetry 06/19/16 06/19/16 06/19/16 19:05 19:07 19:09 Temperature Pulse Rate 74 79 73 Respiratory Rate Blood Pressure 133/94 Blood Pressure [Left Arm] O2 Sat by Pulse 99 78 L Oximetry 06/19/16 06/19/16 06/19/16 19:10 19:12 19:16 Temperature Pulse Rate 72 107 H 56 L Respiratory Rate Blood Pressure 138/90 118/79 Blood Pressure [Left Arm] O2 Sat by Pulse 99 Oximetry 06/19/16 06/19/16 06/19/16 19:17 19:21 19:22 Temperature Pulse Rate 67 55 L 61 Respiratory Rate Blood Pressure 156/90 Blood Pressure [Left Arm] O2 Sat by Pulse 100 100 Oximetry 06/19/16 06/19/16 06/19/16 19:55 20:01 20:52 Temperature 97.9 F Pulse Rate 73 Respiratory 14 20 20 Rate Blood Pressure 140/87 Blood Pressure 140/87 [Left Arm] O2 Sat by Pulse Oximetry 06/19/16 06/19/16 06/19/16 21:29 21:30 21:35 Temperature Pulse Rate 142 H 137 H 129 H Respiratory Rate Blood Pressure 152/70 144/77 Blood Pressure [Left Arm] O2 Sat by Pulse 99 98 Oximetry 06/19/16 06/19/16 06/19/16 21:36 21:42 21:44 Temperature Pulse Rate 113 H 112 H 111 H Respiratory Rate Blood Pressure 124/77 113/76 112/75 Blood Pressure [Left Arm] O2 Sat by Pulse Oximetry 06/19/16 06/19/16 06/19/16 21:46 21:48 21:50 Temperature Pulse Rate 115 H 114 H 105 H Respiratory Rate Blood Pressure 113/76 111/79 112/78 Blood Pressure [Left Arm] O2 Sat by Pulse 100 Oximetry 06/19/16 06/19/16 06/19/16 21:52 21:53 21:54 Temperature Pulse Rate 110 H 107 H 113 H Respiratory Rate Blood Pressure 114/81 115/83 Blood Pressure [Left Arm] O2 Sat by Pulse 100 Oximetry 06/19/16 06/19/16 06/19/16 21:56 21:58 22:00 Temperature Pulse Rate 106 H 115 H 116 H Respiratory 20 Rate Blood Pressure 115/82 115/84 122/70 Blood Pressure [Left Arm] O2 Sat by Pulse 100 Oximetry 06/19/16 06/19/16 06/19/16 22:02 22:03 22:07 Temperature Pulse Rate 130 H 130 H 126 H Respiratory Rate Blood Pressure 112/88 107/66 Blood Pressure [Left Arm] O2 Sat by Pulse 72 L Oximetry 06/19/16 06/19/16 06/19/16 22:08 22:10 22:12 Temperature Pulse Rate 88 100 H 126 H Respiratory Rate Blood Pressure 115/77 113/79 109/75 Blood Pressure [Left Arm] O2 Sat by Pulse 89 Oximetry 06/19/16 06/19/16 06/19/16 22:13 22:16 22:17 Temperature Pulse Rate 122 H 120 H 106 H Respiratory Rate Blood Pressure 114/57 Blood Pressure [Left Arm] O2 Sat by Pulse 72 L 83 L Oximetry 06/19/16 06/19/16 06/19/16 22:18 22:20 22:22 Temperature Pulse Rate 102 H 110 H 103 H Respiratory Rate Blood Pressure 118/70 108/73 107/73 Blood Pressure [Left Arm] O2 Sat by Pulse 76 L Oximetry 06/19/16 06/19/16 06/19/16 22:23 22:24 22:26 Temperature Pulse Rate 104 H 109 H 122 H Respiratory Rate Blood Pressure 106/75 105/77 Blood Pressure [Left Arm] O2 Sat by Pulse 92 Oximetry 06/19/16 06/19/16 06/19/16 22:28 22:30 22:32 Temperature Pulse Rate 126 H 115 H 110 H Respiratory Rate Blood Pressure 108/80 112/80 112/75 Blood Pressure [Left Arm] O2 Sat by Pulse 92 Oximetry 06/19/16 06/19/16 06/19/16 22:33 22:34 22:36 Temperature Pulse Rate 113 H 160 H 121 H Respiratory Rate Blood Pressure 100/63 133/86 Blood Pressure [Left Arm] O2 Sat by Pulse 96 Oximetry 06/19/16 06/19/16 06/19/16 22:38 22:40 22:42 Temperature Pulse Rate 107 H 100 H 126 H Respiratory Rate Blood Pressure 116/82 110/82 108/84 Blood Pressure [Left Arm] O2 Sat by Pulse 100 90 Oximetry 06/19/16 06/19/16 06/19/16 22:43 22:48 22:49 Temperature Pulse Rate 126 H 130 H 112 H Respiratory Rate Blood Pressure 121/77 Blood Pressure [Left Arm] O2 Sat by Pulse 88 76 L Oximetry 06/19/16 06/19/16 06/19/16 22:50 22:52 22:53 Temperature Pulse Rate 106 H 93 H 96 H Respiratory Rate Blood Pressure 114/82 109/76 Blood Pressure [Left Arm] O2 Sat by Pulse 100 Oximetry 06/19/16 06/19/16 06/19/16 22:58 23:03 23:07 Temperature Pulse Rate 113 H 122 H 111 H Respiratory Rate Blood Pressure 181/70 Blood Pressure [Left Arm] O2 Sat by Pulse 100 100 Oximetry 06/19/16 06/19/16 06/19/16 23:08 23:11 23:13 Temperature Pulse Rate 109 H 121 H 129 H Respiratory Rate Blood Pressure 122/70 Blood Pressure [Left Arm] O2 Sat by Pulse 100 100 Oximetry 06/19/16 06/19/16 06/19/16 23:18 23:23 23:28 Temperature Pulse Rate 122 H 110 H 110 H Respiratory Rate Blood Pressure Blood Pressure [Left Arm] O2 Sat by Pulse 100 100 100 Oximetry 06/19/16 06/19/16 06/19/16 23:31 23:33 23:38 Temperature Pulse Rate 114 H 111 H 123 H Respiratory Rate Blood Pressure 110/68 Blood Pressure [Left Arm] O2 Sat by Pulse 100 100 Oximetry 06/19/16 06/19/16 06/19/16 23:43 23:48 23:53 Temperature Pulse Rate 114 H 113 H 130 H Respiratory Rate Blood Pressure Blood Pressure [Left Arm] O2 Sat by Pulse 100 100 100 Oximetry 06/19/16 06/20/16 06/20/16 23:58 00:00 00:03 Temperature Pulse Rate 112 H 123 H 118 H Respiratory Rate Blood Pressure 115/68 Blood Pressure [Left Arm] O2 Sat by Pulse 100 100 Oximetry 06/20/16 06/20/16 06/20/16 00:08 00:13 00:18 Temperature Pulse Rate 138 H 123 H 133 H Respiratory Rate Blood Pressure Blood Pressure [Left Arm] O2 Sat by Pulse 100 100 99 Oximetry 06/20/16 06/20/16 06/20/16 00:23 00:28 00:30 Temperature Pulse Rate 146 H 133 H 136 H Respiratory Rate Blood Pressure 119/75 Blood Pressure [Left Arm] O2 Sat by Pulse 100 100 Oximetry 06/20/16 06/20/16 06/20/16 00:33 00:38 00:43 Temperature Pulse Rate 137 H 126 H 133 H Respiratory Rate Blood Pressure Blood Pressure [Left Arm] O2 Sat by Pulse 100 100 100 Oximetry 06/20/16 06/20/16 06/20/16 00:49 00:54 00:59 Temperature Pulse Rate 129 H 129 H Respiratory Rate Blood Pressure Blood Pressure [Left Arm] O2 Sat by Pulse 89 100 100 Oximetry 06/20/16 06/20/16 06/20/16 01:02 01:04 01:09 Temperature Pulse Rate 136 H 138 H 131 H Respiratory Rate Blood Pressure 159/68 Blood Pressure [Left Arm] O2 Sat by Pulse 100 100 Oximetry 06/20/16 06/20/16 06/20/16 01:14 01:19 01:24 Temperature Pulse Rate 139 H 140 H 131 H Respiratory Rate Blood Pressure Blood Pressure [Left Arm] O2 Sat by Pulse 100 100 100 Oximetry 06/20/16 06/20/16 06/20/16 01:29 01:30 01:34 Temperature Pulse Rate 133 H 155 H 132 H Respiratory Rate Blood Pressure 100/65 Blood Pressure [Left Arm] O2 Sat by Pulse 100 100 Oximetry 06/20/16 06/20/16 06/20/16 01:39 01:44 01:49 Temperature Pulse Rate 130 H 128 H 128 H Respiratory Rate Blood Pressure Blood Pressure [Left Arm] O2 Sat by Pulse 99 99 100 Oximetry 06/20/16 06/20/16 06/20/16 01:54 01:59 02:04 Temperature Pulse Rate 133 H 130 H 124 H Respiratory Rate Blood Pressure Blood Pressure [Left Arm] O2 Sat by Pulse 100 99 99 Oximetry 06/20/16 06/20/16 06/20/16 02:09 02:14 02:19 Temperature Pulse Rate 125 H 124 H 126 H Respiratory Rate Blood Pressure Blood Pressure [Left Arm] O2 Sat by Pulse 100 100 100 Oximetry 06/20/16 06/20/16 06/20/16 02:24 02:29 02:34 Temperature Pulse Rate 113 H 113 H 128 H Respiratory Rate Blood Pressure Blood Pressure [Left Arm] O2 Sat by Pulse 100 100 99 Oximetry 06/20/16 06/20/16 06/20/16 02:39 02:44 02:49 Temperature Pulse Rate 129 H 136 H 128 H Respiratory Rate Blood Pressure Blood Pressure [Left Arm] O2 Sat by Pulse 97 83 L 100 Oximetry 06/20/16 06/20/16 06/20/16 02:54 02:58 03:01 Temperature Pulse Rate 132 H 134 H 134 H Respiratory Rate Blood Pressure 108/69 Blood Pressure [Left Arm] O2 Sat by Pulse 100 100 Oximetry 06/20/16 06/20/16 06/20/16 03:04 03:09 03:12 Temperature Pulse Rate 120 H 122 H 114 H Respiratory Rate Blood Pressure Blood Pressure [Left Arm] O2 Sat by Pulse 100 100 94 Oximetry 06/20/16 06/20/16 06/20/16 03:14 03:19 03:24 Temperature Pulse Rate 81 100 H 118 H Respiratory Rate Blood Pressure Blood Pressure [Left Arm] O2 Sat by Pulse 100 100 98 Oximetry 06/20/16 06/20/16 06/20/16 03:29 03:34 03:37 Temperature Pulse Rate 78 97 H 107 H Respiratory Rate Blood Pressure Blood Pressure [Left Arm] O2 Sat by Pulse 100 100 91 Oximetry 06/20/16 06/20/16 06/20/16 03:38 03:40 03:44 Temperature Pulse Rate 107 H 111 H 78 Respiratory Rate Blood Pressure 78/45 Blood Pressure [Left Arm] O2 Sat by Pulse 95 66 L Oximetry 06/20/16 06/20/16 06/20/16 03:46 03:48 03:51 Temperature Pulse Rate 105 H 113 H 100 H Respiratory Rate Blood Pressure 79/42 87/45 Blood Pressure [Left Arm] O2 Sat by Pulse 100 Oximetry 06/20/16 06/20/16 03:55 03:56 Temperature Pulse Rate 104 H Respiratory Rate Blood Pressure 89/54 Blood Pressure [Left Arm] O2 Sat by Pulse 89 100 Oximetry - Labs CBC & Chem 7: 06/20/16 03:17 06/20/16 03:17 Labs: Abnormal lab results 06/19/16 06/20/16 06/20/16 Range/Units 20:37 03:17 03:17 WBC 23.8 H 16.8 H (4.5-11.0) K/mm3 RBC 3.08 L (3.65-5.03) M/mm3 Hgb 8.5 L (10.1-14.3) gm/dl Hct 26.4 L D (30.3-42.9) % MCH 27 L (28-32) pg Plt Count 139 L 58 L (140-440) K/mm3 Lymph % (Auto) 5.8 L (13.4-35.0) % Lymph # 1.0 L (1.2-5.4) K/mm3 [place] # 0.9 H (0.0-0.8) K/mm3 Seg Neutrophils % 88.5 H (40.0-70.0) % Seg Neuts % (Manual) 92.5 H (40.0-70.0) % Lymphocytes % (Manual) 3.5 L (13.4-35.0) % Seg Neutrophils # 14.9 H (1.8-7.7) K/mm3 Seg Neutrophils # Man 22.0 H (1.8-7.7) K/mm3 Lymphocytes # (Manual) 0.8 L (1.2-5.4) K/mm3 Monocytes # (Manual) 1.0 H (0.0-0.8) K/mm3 PT (12.2-14.9) Sec. INR (0.87-1.13) APTT (24.2-36.6) Sec. Fibrinogen (211-480) mg/dl Potassium 7.0 H* (3.6-5.0) mmol/L Carbon Dioxide 19 L (22-30) mmol/L Creatinine 1.8 H (0.7-1.2) mg/dL Glucose 115 H (65-100) mg/dL Calcium 7.6 L (8.4-10.2) mg/dL Total Protein 5.2 L (6.3-8.2) g/dL Albumin 2.9 L (3.9-5) g/dL 06/20/ Range/Units 03:17 WBC (4.5-11.0) K/mm3 RBC (3.65-5.03) M/mm3 Hgb (10.1-14.3) gm/dl Hct (30.3-42.9) % MCH (28-32) pg Plt Count (140-440) K/mm3 Lymph % (Auto) (13.4-35.0) % Lymph # (1.2-5.4) K/mm3 [place] # (0.0-0.8) K/mm3 Seg Neutrophils % (40.0-70.0) % Seg Neuts % (Manual) (40.0-70.0) % Lymphocytes % (Manual) (13.4-35.0) % Seg Neutrophils # (1.8-7.7) K/mm3 Seg Neutrophils # Man (1.8-7.7) K/mm3 Lymphocytes # (Manual) (1.2-5.4) K/mm3 Monocytes # (Manual) (0.0-0.8) K/mm3 PT 19.1 H (12.2-14.9) Sec. INR 1.61 H (0.87-1.13) APTT 39.4 H (24.2-36.6) Sec. Fibrinogen < 60 L* (211-480) mg/dl Potassium (3.6-5.0) mmol/L Carbon Dioxide (22-30) mmol/L Creatinine (0.7-1.2) mg/dL Glucose (65-100) mg/dL Calcium (8.4-10.2) mg/dL Total Protein (6.3-8.2) g/dL Albumin (3.9-5) g/dL
--- NOTE | 2016-06-20 05:15 | Operative Report ---
Operative Report Operative Report: Date of procedure: 06/20/2016 Pre-operative diagnosis: 1. Intrauterine at 30-3/7 weeks 2. Intrauterine demise 3. Suspected placental abruption 4. Acute renal failure with anuria 5. Hyperkalemia 6. DIC Post-operative diagnosis: Same with [place] uterus and confirmed massive placental abruption Procedure name(s): Primary low transverse section Surgeon: Cory Patrick MD Fiberglass Roving Winder: None Anesthesia: Epidural anesthesia by Dr. Veronica EBL: 800 mL's Findings: A 1459 g male Apgars 0 at 1 minute 0 at 5 minutes. Nuchal cord 2. [place] uterus and massive placental abruption. Normal tubes and ovaries bilaterally. Procedure: After the patient was prepped and draped in usual sterile fashion, and after satisfactory level of epidural anesthesia was obtained, the skin knife was used to make a transverse skin incision. The incision was excised down to layer of the fascia, which was nicked in the midline and extended laterally using the Bovie cautery. The rectus muscles were dissected off the rectus fascia both superiorly and inferiorly. The rectus bellies in the midline, and the peritoneum was entered under direct visualization. The peritoneal incision was extended superiorly and inferiorly. A bladder flap was created and the bladder blade was then placed. The uterus was scored in a curvilinear linear fashion, entered in the midline revealing bloody amniotic fluid. The 's head was delivered onto the surgical field, and nuchal cord 2 was reduced. The rest of the infant's body was delivered, cord was doubly clamped and cut and the was handed to the nursing team. The placenta was manually removed from the uterus, and there was about 200 MLS of blood clots. The [place] uterus was removed from its normal anatomical position, and found to be intact. After gentle uterine lavage, the incision was inspected and found to be without extensions. It was then closed in 2 layers using 0 Vicryl suture in a running interlocking fashion, the second layer imbricating the first. After good hemostasis was achieved, copious amounts or irrigation was performed, and the gutters were suctioned free of blood and blood clots. Tisseel sealant was sprayed across the uterine incision. The uterus was then returned to its normal anatomical position, and after excellent hemostasis assured, the peritoneum was reapproximated using 3-0 Vicryl suture in a running interlocking fashion, and then the rectus muscles were reapproximated using 3-0 Vicryl suture in a [id number] configuration. The fascia was then reapproximated using 0 Vicryl suture in running interlocking fashion. The subcutaneous layer was made hemostatic using Bovie cautery, the Tisseel sealant was sprayed across the fascial incision and the skin edges reapproximated using 4-0 Vicryl suture in a subcuticular fashion. Patient tolerated the procedure well was transported to recovery in stable condition. 2 drops of urine was noted in the Saldivar catheter at the end of the case.
[2016-06-20] MEDS ORDERED: DILAUDID IV PRN (05:16)
[2016-06-20] MEDS: MORPHINE PCA 30MG/30ML IV SCH ×2 (05:40→21:38)
[2016-06-20] MEDS ORDERED: NACL 0.9% 500 ML 500 ML ONE (07:22)
[2016-06-20] MEDS ORDERED: LACTATED RINGERS 1,000 ML ONE (09:38)
[2016-06-20] MEDS: FEOSOL PO SCH (10:20)
[2016-06-20] MEDS: PRENATAL VITAMIN PO SCH (10:21)
--- NOTE | 2016-06-20 11:15 | Consultation ---
History of Present Illness - Reason for Consult Consult date: 06/20/16 Hyperkalemia, Anuria Requesting physician: FAMILIA OSBORNE - History of Present Illness Pt is a 20 y/o lady who was admitted to the OB service for placenta abruption. Onset was after patient started having abdominal pain while on a baby shower yesterday evening. Was brought emergently to the obstetric department. Ultrasound showed the patient has intrauterine . Had emergent C/S this morning, 06/20/16, and Hospitalist service consulted for elevated K level of 7.0 with pt making little or no urine for the past 12 hr. Denies any chest pain shortness of breath of active bleeding. Alert and interactive Past History Past Medical History: hypertension Social history: no significant social history, single Medications and Allergies Allergies Allergy/AdvReac Type Severity Reaction Status Date / Time No Known Allergies Allergy Verified 06/12/16 10:38 Home Medications Medication Instructions Recorded Confirmed Last Taken Type Multiple Vitamins For Women 1 tab PO DAILY 06/12/16 06/12/16 06/12/16 08:30 History 1 Active Meds: Active Medications Acetaminophen (Tylenol) 650 mg PO Q4H PRN PRN Reason: Fever >100.5/VEGAS Acetaminophen/Hydrocodone Bitart ([place] 5/325) 1 each PO Q4H PRN PRN Reason: Pain, Moderate (4-6) Diphtheria/Tetanus/Acell Pertussis (Boostrix) 0.5 ml IM .ONCE ONE Stop: 06/21/16 06:01 Ferrous Sulfate (Feosol) 325 mg PO QDAY ELLA Last Admin: 06/20/16 10:20 Dose: 325 mg Hydromorphone HCl (Dilaudid) 0.5 mg IV Q10MIN PRN PRN Reason: Pain , Severe (7-10) Stop: 06/20/16 23:59 Cefazolin Sodium (Ancef/Ns 1 Gm/50 Ml) 1 gm in 50 mls @ 100 mls/hr IV Q8H ELLA Stop: 06/20/16 20:29 Dextrose/Lactated Ringer's (D5lr) 1,000 mls @ 125 mls/hr IV DIRECT ELLA Oxytocin/Sodium Chloride (Pitocin/Ns 20 Unit/1000ml Drip) 20,000 milliunits in 1,000 mls @ 250 mls/hr IV DIRECT ELLA Last Admin: 06/20/16 06:00 Dose: 250 mls/hr Magnesium Hydroxide (Milk Of Magnesia) 30 ml PO QHS PRN PRN Reason: Constip Unrelieved By Senna Measles/Mumps/Rubella Vaccine Live (M-M-R Ii Vaccine) 0.5 ml SUB-Q .ONCE ONE Stop: 06/21/16 05:04 Mineral Oil (Mineral Oil) 30 ml PO QHS PRN PRN Reason: Constipation Morphine Sulfate (Morphine Sound Designer 30mg/30ml) 0 mg IV DIRECT [facility] PRN Reason: Protocol Last Admin: 06/20/16 05:40 Dose: 1 mg Multi-Ingredient Ointment (Lansinoh) 1 applic TP PRN PRN PRN Reason: dryness/cracking Multivitamins/Iron/Calcium ( Vitamin) 1 each PO QDAY [facility] Last Admin: 06/20/16 10:21 Dose: 1 each Naloxone HCl (Narcan 0.4 Mg/1 Ml) 0.1 mg IV Q2MIN PRN PRN Reason: Res Rate </= 8 or 02 SAT < 92% Ondansetron HCl (Zofran) 4 mg IV Q8H PRN PRN Reason: Nausea And Vomiting Oxycodone/Acetaminophen (Percocet 5/325) 2 tab PO Q6H PRN PRN Reason: Pain, Moderate (4-6) Promethazine HCl (Phenergan) 25 mg PO Q6H PRN PRN Reason: Nausea And Vomiting Senna (Senokot) 17.2 mg PO QHS PRN PRN Reason: Constipation Simethicone (Mylicon) 80 mg PO Q6H PRN PRN Reason: Gas pain Sodium Chloride (Sodium Chloride Flush Syringe 10 Ml) 10 ml IV PRN PRN PRN Reason: LINE FLUSH Witch Gayla/Glycerin (Tucks Pad) 1 each TP PRN PRN PRN Reason: Hemorrhoids/cleansing/soothing Review of system Constitutional: Well Nourished and Well developed. Head: NC/ AT Eyes: Denies any visual impairments. No discharge from the eyes Nose: Denies any rhinorrhea or epistaxis Throats: Denies any post nasal drainage. Ears: Denies any hearing deficits Cardiovascular system: Denies any chest pain, shortness of breath, orthopnea, paroxysmal nocturnal dyspnea, or palpitation. Respiratory system: Denies any cough, difficulty breathing, wheezing, pleuritic chest pain, Gastrointestinal system: Slight postop abdominal pain. No nausea vomiting, hematemesis or melena. Neurological system: Denies any headache, slurred speech, facial droop, lateralizing weakness Genitalia system: Denies any dysuria, urinary frequency or urgency, urethral discharge Skin: No rashes, hyperpigmented spots. Hematological: Denies any cervical tenderness hemorrhages or petechia. Immunological: Denies any multiple septic spots, Lymphatic: Denies any generalized lymphadenopathy. Endocrine: Denies any polyuria, polydipsia, polyphagia. No heat or cold intolerance. Musculoskeletal system: No joint pain or swelling. Psych: No visual, tactile, auditory or hallucination Exam - Constitutional Vitals: Temp Pulse Resp BP Pulse Ox 98.5 F 96 H 18 119/77 99 06/20/16 10:05 06/20/16 10:55 06/20/16 10:05 06/20/16 10:55 06/20/16 10:48 General appearance: Present: no acute distress, well-nourished - EENT Eyes: Present: PERRL ENT: hearing intact, clear oral mucosa - Neck Neck: Present: supple, normal ROM - Respiratory Respiratory effort: normal Respiratory: bilateral: CTA - Cardiovascular Heart Sounds: Present: S1 & S2. Absent: rub, click - Extremities Extremities: pulses symmetrical, No edema Peripheral Pulses: within normal limits - Abdominal General gastrointestinal: Present: soft, non-distended, normal bowel sounds Female genitourinary: Present: normal - Integumentary Integumentary: Present: clear, warm, dry - Musculoskeletal Musculoskeletal: gait normal, strength equal bilaterally - Psychiatric Psychiatric: appropriate mood/affect, intact judgment & insight - Neurologic Neurologic: CNII-XII intact, moves all extremities Results - Labs CBC & Chem 7: 06/20/16 03:17 06/20/16 05:47 Labs: Abnormal lab results 06/19/16 06/20/16 06/20/16 Range/Units 20:37 03:17 03:17 WBC 23.8 H 16.8 H (4.5-11.0) K/mm3 RBC 3.08 L (3.65-5.03) M/mm3 Hgb 8.5 L (10.1-14.3) gm/dl Hct 26.4 L D (30.3-42.9) % MCH 27 L (28-32) pg Plt Count 139 L 58 L (140-440) K/mm3 Lymph % (Auto) 5.8 L (13.4-35.0) % Lymph # 1.0 L (1.2-5.4) K/mm3 [place] # 0.9 H (0.0-0.8) K/mm3 Seg Neutrophils % 88.5 H (40.0-70.0) % Seg Neuts % (Manual) 92.5 H (40.0-70.0) % Lymphocytes % (Manual) 3.5 L (13.4-35.0) % Seg Neutrophils # 14.9 H (1.8-7.7) K/mm3 Seg Neutrophils # Man 22.0 H (1.8-7.7) K/mm3 Lymphocytes # (Manual) 0.8 L (1.2-5.4) K/mm3 Monocytes # (Manual) 1.0 H (0.0-0.8) K/mm3 PT (12.2-14.9) Sec. INR (0.87-1.13) APTT (24.2-36.6) Sec. Fibrinogen (211-480) mg/dl Potassium 7.0 H* (3.6-5.0) mmol/L Carbon Dioxide 19 L (22-30) mmol/L Creatinine 1.8 H (0.7-1.2) mg/dL Glucose 115 H (65-100) mg/dL POC Glucose (70-105) Calcium 7.6 L (8.4-10.2) mg/dL Total Protein 5.2 L (6.3-8.2) g/dL Albumin 2.9 L (3.9-5) g/dL Crossmatch 06/20/16 06/20/16 06/20/16 Range/Units 03:17 05:19 05:47 WBC (4.5-11.0) K/mm3 RBC (3.65-5.03) M/mm3 Hgb (10.1-14.3) gm/dl Hct (30.3-42.9) % MCH (28-32) pg Plt Count (140-440) K/mm3 Lymph % (Auto) (13.4-35.0) % Lymph # (1.2-5.4) K/mm3 [place] # (0.0-0.8) K/mm3 Seg Neutrophils % (40.0-70.0) % Seg Neuts % (Manual) (40.0-70.0) % Lymphocytes % (Manual) (13.4-35.0) % Seg Neutrophils # (1.8-7.7) K/mm3 Seg Neutrophils # Man (1.8-7.7) K/mm3 Lymphocytes # (Manual) (1.2-5.4) K/mm3 Monocytes # (Manual) (0.0-0.8) K/mm3 PT 19.1 H (12.2-14.9) Sec. INR 1.61 H (0.87-1.13) APTT 39.4 H (24.2-36.6) Sec. Fibrinogen < 60 L* (211-480) mg/dl Potassium 6.9 H* (3.6-5.0) mmol/L Carbon Dioxide (22-30) mmol/L Creatinine (0.7-1.2) mg/dL Glucose (65-100) mg/dL POC Glucose (70-105) Calcium (8.4-10.2) mg/dL Total Protein (6.3-8.2) g/dL Albumin (3.9-5) g/dL Crossmatch See Detail 06/20/16 06/20/16 Range/Units 07:37 11:00 WBC (4.5-11.0) K/mm3 RBC (3.65-5.03) M/mm3 Hgb (10.1-14.3) gm/dl Hct (30.3-42.9) % MCH (28-32) pg Plt Count (140-440) K/mm3 Lymph % (Auto) (13.4-35.0) % Lymph # (1.2-5.4) K/mm3 [place] # (0.0-0.8) K/mm3 Seg Neutrophils % (40.0-70.0) % Seg Neuts % (Manual) (40.0-70.0) % Lymphocytes % (Manual) (13.4-35.0) % Seg Neutrophils # (1.8-7.7) K/mm3 Seg Neutrophils # Man (1.8-7.7) K/mm3 Lymphocytes # (Manual) (1.2-5.4) K/mm3 Monocytes # (Manual) (0.0-0.8) K/mm3 PT (12.2-14.9) Sec. INR (0.87-1.13) APTT (24.2-36.6) Sec. Fibrinogen (211-480) mg/dl Potassium (3.6-5.0) mmol/L Carbon Dioxide (22-30) mmol/L Creatinine (0.7-1.2) mg/dL Glucose (65-100) mg/dL POC Glucose 117 H 107 H (70-105) Calcium (8.4-10.2) mg/dL Total Protein (6.3-8.2) g/dL Albumin (3.9-5) g/dL Crossmatch Assessment and Plan 1. Possible DIC: DIC profile will ordered. Transfer patient to ICU. Patient currently receiving 2 units of packed red bed and FFP already ordered. We will obtain hematology consult. 2. Hypokalemia: Patient has had 4 units of subcutaneous insulin, D50 with calcium chloride. We will add 5 units of regular insulinl IV. Blood sugar monitor q hr x 6 hrs. 3. Anuria: Strict I's and O's. Nephrology consult.
--- NOTE | 2016-06-20 11:32 | Consultation ---
History of Present Illness - Reason for Consult Consult date: 06/20/16 acute renal failure, hyperkalemia, metabolic acidosis - History of Present Illness Pt is a 20 yo female who was 30 weeks () presented to [facility] L&D yesterday complaining of acute severe abdominal pain that begun around 5pm. She received care in [place] and course has been unremarkable. She had a normal US 2 days prior to presentation, but the intial OB US showed IUFD with possible abruption. No h/o vaginal bleeding, hematuria, mucosal bleeding, fevr, rash, dizziness, syncope, sob, cp or weakness, she had one episode of vomiting after epidural. No urine output for the past several hours. Initial potassium was 7. Patient received kayexalate, Insulin- dextrose. Patient denies any prior kidney problem. Prior records are not available. Past History Past Medical History: hypertension Social history: no significant social history, single Medications and Allergies Allergies Allergy/AdvReac Type Severity Reaction Status Date / Time No Known Allergies Allergy Verified 06/12/16 10:38 Home Medications Medication Instructions Recorded Confirmed Last Taken Type Multiple Vitamins For Women 1 tab PO DAILY 06/12/16 06/12/16 06/12/16 08:30 History 1 Active Meds: Active Medications Acetaminophen (Tylenol) 650 mg PO Q4H PRN PRN Reason: Fever >100.5/VEGAS Acetaminophen/Hydrocodone Bitart ([place] 5/325) 1 each PO Q4H PRN PRN Reason: Pain, Moderate (4-6) Calcium Chloride (Calcium Chloride) 1,000 mg IV ONCE ONE Stop: 06/20/16 12:01 Diphtheria/Tetanus/Acell Pertussis (Boostrix) 0.5 ml IM .ONCE ONE Stop: 06/21/16 06:01 Ferrous Sulfate (Feosol) 325 mg PO QDAY [facility] Last Admin: 06/20/16 10:20 Dose: 325 mg Hydromorphone HCl (Dilaudid) 0.5 mg IV Q10MIN PRN PRN Reason: Pain , Severe (7-10) Stop: 06/20/16 23:59 Cefazolin Sodium (Ancef/Ns 1 Gm/50 Ml) 1 gm in 50 mls @ 100 mls/hr IV Q8H [facility] Stop: 06/20/16 20:29 Dextrose/Lactated Ringer's (D5lr) 1,000 mls @ 125 mls/hr IV DIRECT ELLA Oxytocin/Sodium Chloride (Pitocin/Ns 20 Unit/1000ml Drip) 20,000 milliunits in 1,000 mls @ 250 mls/hr IV DIRECT ELLA Last Admin: 06/20/16 06:00 Dose: 250 mls/hr Magnesium Hydroxide (Milk Of Magnesia) 30 ml PO QHS PRN PRN Reason: Constip Unrelieved By Senna Measles/Mumps/Rubella Vaccine Live (M-M-R Ii Vaccine) 0.5 ml SUB-Q .ONCE ONE Stop: 06/21/16 05:04 Mineral Oil (Mineral Oil) 30 ml PO QHS PRN PRN Reason: Constipation Morphine Sulfate (Morphine Safety Belt Installer 30mg/30ml) 0 mg IV DIRECT ELLA PRN Reason: Protocol Last Admin: 06/20/16 05:40 Dose: 1 mg Multi-Ingredient Ointment (Lansinoh) 1 applic TP PRN PRN PRN Reason: dryness/cracking Multivitamins/Iron/Calcium ( Vitamin) 1 each PO QDAY [facility] Last Admin: 06/20/16 10:21 Dose: 1 each Naloxone HCl (Narcan 0.4 Mg/1 Ml) 0.1 mg IV Q2MIN PRN PRN Reason: Res Rate </= 8 or 02 SAT < 92% Ondansetron HCl (Zofran) 4 mg IV Q8H PRN PRN Reason: Nausea And Vomiting Oxycodone/Acetaminophen (Percocet 5/325) 2 tab PO Q6H PRN PRN Reason: Pain, Moderate (4-6) Promethazine HCl (Phenergan) 25 mg PO Q6H PRN PRN Reason: Nausea And Vomiting Senna (Senokot) 17.2 mg PO QHS PRN PRN Reason: Constipation Simethicone (Mylicon) 80 mg PO Q6H PRN PRN Reason: Gas pain Sodium Bicarbonate (Sodium Bicarbonate) 50 meq IV ONCE ONE Stop: 06/20/16 12:01 Sodium Chloride (Sodium Chloride Flush Syringe 10 Ml) 10 ml IV PRN PRN PRN Reason: LINE FLUSH Witch Gayla/Glycerin (Tucks Pad) 1 each TP PRN PRN PRN Reason: Hemorrhoids/cleansing/soothing Review of Systems Constitutional: no fever Ears, nose, mouth and throat: no sinus pressure, no sinus pain, no sore throat, no headache, no vertigo Breasts: deferred Cardiovascular: edema, no chest pain, no syncope, no lightheadedness, no shortness of breath Respiratory: no cough, no hemoptysis, no shortness of breath Gastrointestinal: abdominal pain, nausea, vomiting, no diarrhea, no melena Genitourinary Female: no dysuria, no urgency, no hematuria Rectal: no bleeding Musculoskeletal: no neck stiffness, no redness of joints Integumentary: no rash Neurological: no head injury, no paralysis, no convulsions, no change in mentation, no confusion Endocrine: no polyuria Hematologic/Lymphatic: no easy bruising, no easy bleeding Allergic/Immunologic: no wheezing Exam - Vital Signs Vital signs: Vital Signs Pulse Pulse Ox 58 L 100 06/19/16 18:22 06/19/16 18:22 - General Appearance General appearance: well-developed, well-nourished, other (no distress) EENT: mucous membranes moist, hearing intact, vision intact Neck: Present: neck supple Respiratory: Clear to Ascultation Heart: regular, S1S2 Gastrointestinal: Present: normoactive bowel sounds, other (dressing over the lower part of the abdomen, field catheter in place) Integumentary: no rash, warm and dry Neurologic: no focal deficit, no asterixis, alert and oriented x3, CN 3-12 intact Musculoskeletal: Present: other (bilateral LE edema noted) Psychiatric: mood/affect appropriate, cooperative Results - Lab Results 06/20/16 03:17 06/20/16 05:47 Most recent lab results Calcium 7.6 mg/dL (8.4-10.2) L 06/20/16 03:17 - Image Kidney/bladder ultrasound: pending Assessment and Plan - Patient Problems (1) CHRISTOPHER (acute kidney injury) Current Visit: Yes Status: Acute Plan to address problem: Acute kidney Injury in the setting of hypotension, severe anemia, placental abruption and suspected DIC. BP is stable at present. Patient is receiving PRBC. Renal US ordered. Will follow repeat labs. Stop all NSAIDs. (2) Hyperkalemia Current Visit: Yes Status: Acute Plan to address problem: Acute hyperkalemia in the setting of Acute Kidney Injury. Patient received kayexalate and Insulin-dextrose. Repeat potassium level is pending. Change IV fluids to D5NS. D/w patient regarding the possibility of hemodialysis if the potassium level is not improving with meds. Patient agreed to proceed with hemodialysis if needed. Understood the risks and benefits. (3) Metabolic acidosis Current Visit: Yes Status: Acute (4) Intrauterine in Onset Date: 06/19/16 Current Visit: Yes Status: Acute Qualifiers: Fetus number: single or unspecified fetus Qualified Code(s): O36.4XX0 - Maternal care for intrauterine , not applicable or unspecified
[2016-06-20] MEDS ORDERED: MULTIPLE VITAMINS FOR WOMEN PO SCH (11:45)
[2016-06-20 12:03] LABS: Albumin 2.3 g/dL (3.9-5); Albumin/Globulin Ratio 1.3 %; BUN/Creatinine Ratio 8.4; Bilirubin,Total 0.2 mg/dL (0.1-1.2); Calcium 6.5 mg/dL (8.4-10.2); Chloride 107.5 mmol/L (98-107); Potassium 4.8 mmol/L (3.6-5.0); Total Protein 4.1 g/dL (6.3-8.2)
--- NOTE | 2016-06-20 12:10 | Ultrasound Report ---
Renal sonogram: History: Acute renal failure. Findings: Right kidney measures 13 x 5.2 x 4.7 cm. Cortical thickness is 1.9 cm. There is a cyst identified measuring 1 cm in diameter the right kidney. Left kidney measures 13.2 x 5.6 x 4.1 cm. Cortical thickness 2.3 cm. Impression: Cyst right kidney.
[2016-06-20] MEDS: ANCEF/NS 1 GM/50 ML 1 GM/50 ML BAG IV SCH (12:28)
[2016-06-20] MEDS ORDERED: PITOCin/NS 20 UNIT/1000ML DRIP 20,000 MILLIUNITS/1,000 ML BAG IV ONE (12:45)
[2016-06-20] MEDS ORDERED: PITOCin/NS 20 UNIT/1000ML DRIP 20 UNITS/1,000 ML BAG IV SCH (13:00)
[2016-06-20] MEDS: D5LR 1,000 ML IV SCH (15:04)
[2016-06-20 19:35] LABS: Mean Corpuscular HGB Conc 32 % (30-34); Mean Corpuscular Volume 78 fl (79-97); Red Blood Count 2.17 M/mm3 (3.65-5.03); White Blood Count 11.2 K/mm3 (4.5-11.0)
[2016-06-20 19:47] LABS: Hematocrit 16.8 % (30.3-42.9); Hemoglobin 5.4 gm/dl (10.1-14.3); Mean Corpuscular Hemoglobin 25 pg (28-32); Platelet Count 46 K/mm3 (140-440); Red Cell Distribution Width 27.4 % (13.2-15.2)
[2016-06-20 19:48] LABS: INR 1.09 (0.87-1.13)
[2016-06-20 19:49] LABS: Partial Thromboplastin Time 35.1 Sec. (24.2-36.6)
[2016-06-20] MEDS ORDERED: NACL 0.9% 500 ML 500 ML IV SCH (19:55)
[2016-06-20] MEDS ORDERED: TYLENOL PO ONE (21:00)
[2016-06-20] MEDS ORDERED: BENADRYL IV ONE (21:00)
[2016-06-20 21:20] LABS: Mean Corpuscular HGB Conc 33 % (30-34); Mean Corpuscular Volume 77 fl (79-97); Red Blood Count 2.12 M/mm3 (3.65-5.03); White Blood Count 10.9 K/mm3 (4.5-11.0)
[2016-06-20 21:28] LABS: Hematocrit 16.4 % (30.3-42.9); Hemoglobin 5.4 gm/dl (10.1-14.3); Mean Corpuscular Hemoglobin 25 pg (28-32); Platelet Count 52 K/mm3 (140-440); Red Cell Distribution Width 27.9 % (13.2-15.2)
[2016-06-20 22:35] LABS: BUN/Creatinine Ratio 6.96; Calcium 6.5 mg/dL (8.4-10.2); Chloride 101.6 mmol/L (98-107); Potassium 3.9 mmol/L (3.6-5.0)
[2016-06-20 22:58] LABS: Basophils % (Manual) 0 % (0.0-1.8); Blastocytes % (Manual) 0 %; Eosinophils % (Manual) 0 % (0.0-4.3)
[2016-06-20 22:59] LABS: Anisocytosis 1+
[2016-06-20 23:06] LABS: Diff Status Complete; Platelet Estimate Consistent w Auto
--- NOTE | 2016-06-20 23:23 | Consultation ---
History of Present Illness - Reason for Consult Consult date: 06/20/16 DIC Requesting physician: MAGALIE HARRISON - History of Present Illness Thank you for this consult, patient seen/examined, case d/w her. Notes reviewed. Kindly asked to see this patient who apparently dx with DIC due to placenta abruptio. / fetius. She is already going through the complications of DIC, including organ failures.She has since received vlood transfusion, and some FFP for mild bleeding. Please see the orders/w/up. Past History Past Medical History: hypertension Social history: no significant social history, single Family history: no significant family history Medications and Allergies Allergies Allergy/AdvReac Type Severity Reaction Status Date / Time No Known Allergies Allergy Verified 06/12/16 10:38 Home Medications Medication Instructions Recorded Confirmed Last Taken Type Multiple Vitamins For Women 1 tab PO DAILY 06/12/16 06/12/16 06/12/16 08:30 History 1 Active Meds: Active Medications Acetaminophen (Tylenol) 650 mg PO Q4H PRN PRN Reason: Fever >100.5/VEGAS Acetaminophen/Hydrocodone Bitart ([place] 5/325) 1 each PO Q4H PRN PRN Reason: Pain, Moderate (4-6) Diphtheria/Tetanus/Acell Pertussis (Boostrix) 0.5 ml IM .ONCE ONE Stop: 06/21/16 06:01 Ferrous Sulfate (Feosol) 325 mg PO QDAY ELLA Last Admin: 06/20/16 10:20 Dose: 325 mg Hydromorphone HCl (Dilaudid) 0.5 mg IV Q10MIN PRN PRN Reason: Pain , Severe (7-10) Stop: 06/20/16 23:59 Dextrose/Lactated Ringer's (D5lr) 1,000 mls @ 125 mls/hr IV DIRECT [facility] Last Admin: 06/20/16 15:04 Dose: 125 mls/hr Sodium Chloride (Nacl 0.9% 500 Ml) 500 mls @ 0 mls/hr IV ONCE ELLA PRN Reason: As Directed Stop: 06/21/16 06:00 Influenza Virus Vaccine Quadrival (Fluarix Quad [id number](36 Mos+)) 60 mcg IM .ONCE ONE Stop: 06/21/16 12:01 Magnesium Hydroxide (Milk Of Magnesia) 30 ml PO QHS PRN PRN Reason: Constip Unrelieved By Senna Measles/Mumps/Rubella Vaccine Live (M-M-R Ii Vaccine) 0.5 ml SUB-Q .ONCE ONE Stop: 06/21/16 05:04 Morphine Sulfate (Morphine Biomedical Instrument Technician 30mg/30ml) 0 mg IV DIRECT ELLA PRN Reason: Protocol Last Admin: 06/20/16 21:38 Dose: 5.3 mg Multi-Ingredient Ointment (Lansinoh) 1 applic TP PRN PRN PRN Reason: dryness/cracking Multivitamins (Theragran Tab) 1 each PO DAILY [facility] Multivitamins/Iron/Calcium ( Vitamin) 1 each PO QDAY [facility] Last Admin: 06/20/16 10:21 Dose: 1 each Naloxone HCl (Narcan 0.4 Mg/1 Ml) 0.1 mg IV Q2MIN PRN PRN Reason: Res Rate </= 8 or 02 SAT < 92% Ondansetron HCl (Zofran) 4 mg IV Q8H PRN PRN Reason: Nausea And Vomiting Oxycodone/Acetaminophen (Percocet 5/325) 2 tab PO Q6H PRN PRN Reason: Pain, Moderate (4-6) Senna (Senokot) 17.2 mg PO QHS PRN PRN Reason: Constipation Simethicone (Mylicon) 80 mg PO Q6H PRN PRN Reason: Gas pain Sodium Chloride (Sodium Chloride Flush Syringe 10 Ml) 10 ml IV PRN PRN PRN Reason: flush Witch Gayla/Glycerin (Tucks Pad) 1 each TP PRN PRN PRN Reason: Hemorrhoids/cleansing/soothing Review of Systems Breasts: deferred Gastrointestinal: abdominal pain Exam - Constitutional Vitals: Temp Pulse Resp BP Pulse Ox 99.5 F 120 H 21 136/90 100 06/20/16 23:00 06/20/16 23:00 06/20/16 23:00 06/20/16 23:00 06/20/16 23:00 General appearance: Present: mild distress, well-nourished - EENT Eyes: Present: PERRL ENT: hearing intact, clear oral mucosa - Neck Neck: Present: supple, normal ROM - Respiratory Respiratory effort: normal Respiratory: bilateral: CTA - Cardiovascular Heart Sounds: Present: S1 & S2. Absent: rub, click - Extremities Extremities: pulses symmetrical, No edema Peripheral Pulses: within normal limits - Abdominal General gastrointestinal: Present: soft, non-tender, non-distended, normal bowel sounds Female genitourinary: Present: deferred - Rectal Rectal Exam: deferred - Integumentary Integumentary: Present: clear, warm, dry - Musculoskeletal Musculoskeletal: gait normal, strength equal bilaterally - Psychiatric Psychiatric: appropriate mood/affect, intact judgment & insight - Neurologic Neurologic: CNII-XII intact, moves all extremities Results - Labs CBC & Chem 7: 06/20/16 21:13 06/20/16 21:38 Labs: Abnormal lab results 06/20/16 06/20/16 06/20/16 Range/Units 03:17 03:17 03:17 WBC 16.8 H (4.5-11.0) K/mm3 RBC 3.08 L (3.65-5.03) M/mm3 Hgb 8.5 L (10.1-14.3) gm/dl Hct 26.4 L D (30.3-42.9) % MCV (79-97) fl MCH 27 L (28-32) pg RDW (13.2-15.2) % Plt Count 58 L (140-440) K/mm3 Lymph % (Auto) 5.8 L (13.4-35.0) % Lymph # 1.0 L (1.2-5.4) K/mm3 [place] # 0.9 H (0.0-0.8) K/mm3 Seg Neutrophils % 88.5 H (40.0-70.0) % Seg Neuts % (Manual) (40.0-70.0) % Seg Neutrophils # 14.9 H (1.8-7.7) K/mm3 Seg Neutrophils # Man (1.8-7.7) K/mm3 PT 19.1 H (12.2-14.9) Sec. INR 1.61 H (0.87-1.13) APTT 39.4 H (24.2-36.6) Sec. Fibrinogen < 60 L* (211-480) mg/dl Potassium 7.0 H* (3.6-5.0) mmol/L Chloride (98-107) mmol/L Carbon Dioxide 19 L (22-30) mmol/L BUN (7-17) mg/dL Creatinine 1.8 H (0.7-1.2) mg/dL Glucose 115 H (65-100) mg/dL POC Glucose (70-105) Calcium 7.6 L (8.4-10.2) mg/dL Total Protein 5.2 L (6.3-8.2) g/dL Albumin 2.9 L (3.9-5) g/dL Crossmatch 06/20/16 06/20/16 06/20/16 Range/Units 05:19 05:47 07:37 WBC (4.5-11.0) K/mm3 RBC (3.65-5.03) M/mm3 Hgb (10.1-14.3) gm/dl Hct (30.3-42.9) % MCV (79-97) fl MCH (28-32) pg RDW (13.2-15.2) % Plt Count (140-440) K/mm3 Lymph % (Auto) (13.4-35.0) % Lymph # (1.2-5.4) K/mm3 [place] # (0.0-0.8) K/mm3 Seg Neutrophils % (40.0-70.0) % Seg Neuts % (Manual) (40.0-70.0) % Seg Neutrophils # (1.8-7.7) K/mm3 Seg Neutrophils # Man (1.8-7.7) K/mm3 PT (12.2-14.9) Sec. INR (0.87-1.13) APTT (24.2-36.6) Sec. Fibrinogen (211-480) mg/dl Potassium 6.9 H* (3.6-5.0) mmol/L Chloride (98-107) mmol/L Carbon Dioxide (22-30) mmol/L BUN (7-17) mg/dL Creatinine (0.7-1.2) mg/dL Glucose (65-100) mg/dL POC Glucose 117 H (70-105) Calcium (8.4-10.2) mg/dL Total Protein (6.3-8.2) g/dL Albumin (3.9-5) g/dL Crossmatch See Detail 06/20/16 06/20/16 06/20/16 Range/Units 11:00 11:41 12:15 WBC (4.5-11.0) K/mm3 RBC (3.65-5.03) M/mm3 Hgb (10.1-14.3) gm/dl Hct (30.3-42.9) % MCV (79-97) fl MCH (28-32) pg RDW (13.2-15.2) % Plt Count (140-440) K/mm3 Lymph % (Auto) (13.4-35.0) % Lymph # (1.2-5.4) K/mm3 [place] # (0.0-0.8) K/mm3 Seg Neutrophils % (40.0-70.0) % Seg Neuts % (Manual) (40.0-70.0) % Seg Neutrophils # (1.8-7.7) K/mm3 Seg Neutrophils # Man (1.8-7.7) K/mm3 PT (12.2-14.9) Sec. INR (0.87-1.13) APTT (24.2-36.6) Sec. Fibrinogen (211-480) mg/dl Potassium (3.6-5.0) mmol/L Chloride 107.5 H (98-107) mmol/L Carbon Dioxide 17 L (22-30) mmol/L BUN 21 H (7-17) mg/dL Creatinine 2.5 H (0.7-1.2) mg/dL Glucose 125 H (65-100) mg/dL POC Glucose 107 H 65 L (70-105) Calcium 6.5 L (8.4-10.2) mg/dL Total Protein 4.1 L D (6.3-8.2) g/dL Albumin 2.3 L (3.9-5) g/dL Crossmatch 06/20/16 06/20/16 06/20/16 Range/Units 19:05 19:05 21:13 WBC 11.2 H (4.5-11.0) K/mm3 RBC 2.17 L 2.12 L (3.65-5.03) M/mm3 Hgb 5.4 L* D 5.4 L* (10.1-14.3) gm/dl Hct 16.8 L* D 16.4 L* (30.3-42.9) % MCV 78 L D 77 L (79-97) fl MCH 25 L 25 L (28-32) pg RDW 27.4 H 27.9 H (13.2-15.2) % Plt Count 46 L 52 L (140-440) K/mm3 Lymph % (Auto) (13.4-35.0) % Lymph # (1.2-5.4) K/mm3 [place] # (0.0-0.8) K/mm3 Seg Neutrophils % (40.0-70.0) % Seg Neuts % (Manual) 78.0 H (40.0-70.0) % Seg Neutrophils # (1.8-7.7) K/mm3 Seg Neutrophils # Man 8.5 H (1.8-7.7) K/mm3 PT (12.2-14.9) Sec. INR (0.87-1.13) APTT (24.2-36.6) Sec. Fibrinogen 198 L (211-480) mg/dl Potassium (3.6-5.0) mmol/L Chloride (98-107) mmol/L Carbon Dioxide (22-30) mmol/L BUN (7-17) mg/dL Creatinine (0.7-1.2) mg/dL Glucose (65-100) mg/dL POC Glucose (70-105) Calcium (8.4-10.2) mg/dL Total Protein (6.3-8.2) g/dL Albumin (3.9-5) g/dL Crossmatch 06/20/16 Range/Units 21:38 WBC (4.5-11.0) K/mm3 RBC (3.65-5.03) M/mm3 Hgb (10.1-14.3) gm/dl Hct (30.3-42.9) % MCV (79-97) fl MCH (28-32) pg RDW (13.2-15.2) % Plt Count (140-440) K/mm3 Lymph % (Auto) (13.4-35.0) % Lymph # (1.2-5.4) K/mm3 [place] # (0.0-0.8) K/mm3 Seg Neutrophils % (40.0-70.0) % Seg Neuts % (Manual) (40.0-70.0) % Seg Neutrophils # (1.8-7.7) K/mm3 Seg Neutrophils # Man (1.8-7.7) K/mm3 PT (12.2-14.9) Sec. INR (0.87-1.13) APTT (24.2-36.6) Sec. Fibrinogen (211-480) mg/dl Potassium (3.6-5.0) mmol/L Chloride (98-107) mmol/L Carbon Dioxide 20 L (22-30) mmol/L BUN 23 H (7-17) mg/dL Creatinine 3.3 H (0.7-1.2) mg/dL Glucose (65-100) mg/dL POC Glucose (70-105) Calcium 6.5 L (8.4-10.2) mg/dL Total Protein (6.3-8.2) g/dL Albumin (3.9-5) g/dL Crossmatch Assessment and Plan - Patient Problems (1) Hyperkalemia Current Visit: Yes Status: Acute Plan to address problem: deffer to the renal service. (2) Intrauterine in Onset Date: 06/19/16 Current Visit: Yes Status: Acute Qualifiers: Fetus number: single or unspecified fetus Qualified Code(s): O36.4XX0 - Maternal care for intrauterine , not applicable or unspecified Plan to address problem: the fetus is already evacuated, continue to tx the underlying issues. (3) CHRISTOPHER (acute kidney injury) Current Visit: Yes Status: Acute Plan to address problem: Follow renal service. (4) DIC (disseminated intravascular coagulation) Current Visit: Yes Status: Acute Plan to address problem: See full w/up, and management.
[2016-06-21] MEDS: ANCEF/NS 1 GM/50 ML 1 GM/50 ML BAG IV SCH (03:02)
[2016-06-21] MEDS ORDERED: M-M-R II VACCINE SUB-Q ONE (05:03)
[2016-06-21 05:29] LABS: Hematocrit 24.5 % (30.3-42.9); Hemoglobin 8.1 gm/dl (10.1-14.3)
[2016-06-21 05:40] LABS: INR 1.05 (0.87-1.13)
[2016-06-21 05:41] LABS: Partial Thromboplastin Time 34.3 Sec. (24.2-36.6)
[2016-06-21 06:00] LABS: BUN/Creatinine Ratio 6.57; Calcium 6.2 mg/dL (8.4-10.2); Chloride 103.5 mmol/L (98-107)
[2016-06-21] MEDS ORDERED: BOOSTRIX IM ONE (06:00)
[2016-06-21 07:20] LABS: BUN/Creatinine Ratio 6.57; Calcium 6.3 mg/dL (8.4-10.2); Chloride 103.4 mmol/L (98-107); Potassium 3.9 mmol/L (3.6-5.0)
--- NOTE | 2016-06-21 07:20 | Progress Note ---
Assessment and Plan - Patient Problems (1) CHRISTOPHER (acute kidney injury) Current Visit: Yes Status: Acute Plan to address problem: Acute kidney Injury in the setting of hypotension, severe anemia, placental abruption and DIC. BP is better. Urine output is improving. Creatinine plateaued. Patient is receiving PRBC. Renal US is negative. Continue IV fluids. (2) Hyperkalemia Current Visit: Yes Status: Acute Plan to address problem: Improved. Monitor K level. (3) Metabolic acidosis Current Visit: Yes Status: Acute Plan to address problem: Continue IV fluids and monitor acid-base status. (4) Intrauterine in Onset Date: 06/19/16 Current Visit: Yes Status: Acute Qualifiers: Fetus number: single or unspecified fetus Qualified Code(s): O36.4XX0 - Maternal care for intrauterine , not applicable or unspecified (5) DIC (disseminated intravascular coagulation) Current Visit: Yes Status: Acute Subjective Date of service: 06/21/16 Principal diagnosis: IUP @ 30 3/7 weeks; IUFD; Anuria, Thrombocytopenia Interval history: Patient c/o pain over the lower abdomen. Objective - Vital Signs Vital signs: Vital Signs - 12hr 06/20/16 06/20/16 06/20/16 19:30 19:46 20:00 Temperature 99.0 F Pulse Rate 108 H 118 H Respiratory 16 20 Rate Blood Pressure 122/81 124/66 O2 Sat by Pulse 100 100 Oximetry 06/20/16 06/20/16 06/20/16 20:30 21:00 21:30 Temperature Pulse Rate 108 H 118 H 133 H Respiratory 19 19 24 Rate Blood Pressure 124/70 124/70 139/88 O2 Sat by Pulse 100 100 100 Oximetry 06/20/16 06/20/16 06/20/16 22:00 22:04 22:20 Temperature 98.9 F 99.2 F Pulse Rate 128 H 122 H 117 H Respiratory 14 22 21 Rate Blood Pressure 135/87 139/88 132/70 O2 Sat by Pulse 100 100 98 Oximetry 06/20/16 06/20/16 06/20/16 22:30 22:34 23:00 Temperature 98.1 F 99.5 F Pulse Rate 120 H 118 H 117 H Respiratory 19 21 22 Rate Blood Pressure 127/89 135/87 136/90 O2 Sat by Pulse 100 98 100 Oximetry 02/06/20/16 06/21/16 23:30 23:31 00:00 Temperature 99.5 F Pulse Rate 112 H 121 H Respiratory 20 18 Rate Blood Pressure 126/85 126/85 O2 Sat by Pulse 100 100 Oximetry 06/21/16 06/21/16 06/21/16 00:20 00:30 00:50 Temperature 98.3 F 98.3 F Pulse Rate 116 H 112 H 107 H Respiratory 18 21 20 Rate Blood Pressure 132/72 132/72 135/84 O2 Sat by Pulse 97 100 Oximetry 06/21/16 06/21/16 06/21/16 01:00 01:20 01:30 Temperature 98.3 F Pulse Rate 129 H 112 H 112 H Respiratory 22 16 22 Rate Blood Pressure 135/84 121/72 121/72 O2 Sat by Pulse 100 99 97 Oximetry 06/21/16 06/21/16 06/21/16 01:50 02:00 02:30 Temperature 98.4 F Pulse Rate 112 H 114 H 127 H Respiratory 18 22 24 Rate Blood Pressure 119/63 119/63 126/102 O2 Sat by Pulse 97 96 96 Oximetry 06/21/16 06/21/16 06/21/16 02:57 03:00 03:30 Temperature 98.8 F 99.2 F Pulse Rate 108 H 118 H 116 H Respiratory 19 20 21 Rate Blood Pressure 119/77 113/74 127/82 O2 Sat by Pulse 97 96 92 Oximetry 06/21/16 06/21/16 06/21/16 04:00 04:26 04:30 Temperature 98.9 F Pulse Rate 129 H 123 H Respiratory 27 H 17 Rate Blood Pressure 127/82 118/71 O2 Sat by Pulse 96 90 Oximetry 06/21/16 06/21/16 06/21/16 05:00 05:30 06:00 Temperature Pulse Rate 125 H 142 H 131 H Respiratory 28 H 29 H 20 Rate Blood Pressure 112/79 118/71 113/74 O2 Sat by Pulse 91 93 95 Oximetry 06/21/16 06/21/16 06:08 06:30 Temperature 98.9 F Pulse Rate 120 H 125 H Respiratory 29 H 23 Rate Blood Pressure 118/71 134/86 O2 Sat by Pulse 93 90 Oximetry - General Appearance General appearance: well-developed, well-nourished, other (no distress) EENT: PERRL, mucous membranes moist, hearing intact, vision intact Neck: no JVD, no carotid bruit, supple Respiratory: Present: Clear to Ascultation Cardiology: regular, S1S2, no murmurs Gastrointestinal: normoactive bowel sounds, tenderness (over the incision area) Integumentary: no rash, warm and dry Neurologic: no focal deficit, no asterixis, alert and oriented x3, CN 3-12 intact Musculoskeletal: other (bilateral LE edema noted) Psychiatric: mood/affect appropriate, cooperative - Lab 06/21/16 05:09 06/21/16 06:44 Most recent lab results Calcium 6.3 mg/dL (8.4-10.2) L 06/21/16 06:44 Urine Creatinine 63.7 mg/dL (0.1-20.0) H 06/21/16 05:30 Urine Sodium 56 mEq/L 06/21/16 05:30
--- NOTE | 2016-06-21 08:26 | Progress Note ---
Assessment and Plan Assessment and plan: 1) CHRISTOPHER (acute kidney injury) Acute kidney Injury in the setting of hypotension, severe anemia, placental abruption and DIC. BP is better. Urine output is improving. Creatinine plateaued. Patient is receiving PRBC. Renal US is negative. Continue IV fluids. (2) Hyperkalemia Improved. Monitor K level. (3) Metabolic acidosis Continue IV fluids and monitor acid-base status. (4) Intrauterine in Management per [employer] Maternal care for intrauterine , not applicable or unspecified (5) DIC (disseminated intravascular coagulation) Workup per Hematology History Interval history: Patient was sitting in bed. No complaints Hospitalist Physical - Constitutional Vitals: Temp Pulse Resp BP Pulse Ox 98.9 F 125 H 23 134/86 94 06/21/16 06:08 06/21/16 06:30 06/21/16 06:30 06/21/16 06:30 06/21/16 07:23 General appearance: Present: mild distress, well-nourished - EENT Eyes: Present: PERRL, EOM intact ENT: hearing intact, clear oral mucosa - Neck Neck: Present: supple, normal ROM - Respiratory Respiratory effort: normal Respiratory: bilateral: CTA - Cardiovascular Rhythm: regular Heart Sounds: Present: S1 & S2 - Abdominal General gastrointestinal: soft, non-tender, non-distended, normal bowel sounds - Psychiatric Psychiatric: appropriate mood/affect, intact judgment & insight - Neurologic Neurologic: CNII-XII intact, moves all extremities Results - Labs CBC & Chem 7: 06/21/16 05:09 06/21/16 06:44 Labs: Laboratory Last Values WBC 10.9 K/mm3 (4.5-11.0) 06/20/16 21:13 RBC 2.12 M/mm3 (3.65-5.03) L 06/20/16 21:13 Hgb 8.1 gm/dl (10.1-14.3) L 06/21/16 05:09 Hct 24.5 % (30.3-42.9) L D 06/21/16 05:09 MCV 77 fl (79-97) L 06/20/16 21:13 MCH 25 pg (28-32) L 06/20/16 21:13 MCHC 33 % (30-34) 06/20/16 21:13 RDW 27.9 % (13.2-15.2) H 06/20/16 21:13 Plt Count 52 K/mm3 (140-440) L 06/20/16 21:13 Lymph % (Auto) 5.8 % (13.4-35.0) L 06/20/16 03:17 [place] % (Auto) 5.5 % (0.0-7.3) 06/20/16 03:17 Eos % (Auto) 0.0 % (0.0-4.3) 06/20/16 03:17 Baso % (Auto) 0.2 % (0.0-1.8) 06/20/16 03:17 Lymph # 1.0 K/mm3 (1.2-5.4) L 06/20/16 03:17 [place] # 0.9 K/mm3 (0.0-0.8) H 06/20/16 03:17 Eos # 0.0 K/mm3 (0.0-0.4) 06/20/16 03:17 Baso # 0.0 K/mm3 (0.0-0.1) 06/20/16 03:17 Add Manual Diff Complete 06/20/16 21:13 Total Counted 100 06/20/16 21:13 Seg Neutrophils % 88.5 % (40.0-70.0) H 06/20/16 03:17 Seg Neuts % (Manual) 78.0 % (40.0-70.0) H 06/20/16 21:13 Band Neutrophils % 0 % 06/20/16 21:13 Lymphocytes % (Manual) 18.0 % (13.4-35.0) 06/20/16 21:13 Reactive Lymphs % (Man) 0 % 06/20/16 21:13 Monocytes % (Manual) 4.0 % (0.0-7.3) 06/20/16 21:13 Eosinophils % (Manual) 0 % (0.0-4.3) 06/20/16 21:13 Basophils % (Manual) 0 % (0.0-1.8) 06/20/16 21:13 Metamyelocytes % 0 % 06/20/16 21:13 Myelocytes % 0 % 06/20/16 21:13 Promyelocytes % 0 % 06/20/16 21:13 Blast Cells % 0 % 06/20/16 21:13 Nucleated RBC % Not Reportable 06/20/16 21:13 Seg Neutrophils # 14.9 K/mm3 (1.8-7.7) H 06/20/16 03:17 Seg Neutrophils # Man 8.5 K/mm3 (1.8-7.7) H 06/20/16 21:13 Band Neutrophils # 0.0 K/mm3 06/20/16 21:13 Lymphocytes # (Manual) 2.0 K/mm3 (1.2-5.4) 06/20/16 21:13 Abs React Lymphs (Man) 0.0 K/mm3 06/20/16 21:13 Monocytes # (Manual) 0.4 K/mm3 (0.0-0.8) 06/20/16 21:13 Eosinophils # (Manual) 0.0 K/mm3 (0.0-0.4) 06/20/16 21:13 Basophils # (Manual) 0.0 K/mm3 (0.0-0.1) 06/20/16 21:13 Metamyelocytes # 0.0 K/mm3 06/20/16 21:13 Myelocytes # 0.0 K/mm3 06/20/16 21:13 Promyelocytes # 0.0 K/mm3 06/20/16 21:13 Blast Cells # 0.0 K/mm3 06/20/16 21:13 WBC Morphology Not Reportable 06/20/16 21:13 Hypersegmented Neuts Not Reportable 06/20/16 21:13 Hyposegmented Neuts Not Reportable 06/20/16 21:13 Hypogranular Neuts Not Reportable 06/20/16 21:13 Smudge Cells Not Reportable 06/20/16 21:13 Toxic Granulation Not Reportable 06/20/16 21:13 Toxic Vacuolation Not Reportable 06/20/16 21:13 Dohle Bodies Not Reportable 06/20/16 21:13 Pelger-Huet Anomaly Not Reportable 06/20/16 21:13 Rj Rods Not Reportable 06/20/16 21:13 Platelet Estimate Consistent w auto 06/20/16 21:13 Clumped Platelets Not Reportable 06/20/16 21:13 Plt Clumps, EDTA Not Reportable 06/20/16 21:13 Large Platelets Not Reportable 06/20/16 21:13 Giant Platelets Not Reportable 06/20/16 21:13 Platelet Satelliting Not Reportable 06/20/16 21:13 Plt Morphology Comment Not Reportable 06/20/16 21:13 RBC Morphology Not Reportable 06/20/16 21:13 Dimorphic RBCs Not Reportable 06/20/16 21:13 Polychromasia Not Reportable 06/20/16 21:13 Hypochromasia Not Reportable 06/20/16 21:13 Poikilocytosis Not Reportable 06/20/16 21:13 Anisocytosis 1+ 06/20/16 21:13 Microcytosis Not Reportable 06/20/16 21:13 Macrocytosis Not Reportable 06/20/16 21:13 Spherocytes Not Reportable 06/20/16 21:13 Pappenheimer Bodies Not Reportable 06/20/16 21:13 Sickle Cells Not Reportable 06/20/16 21:13 Target Cells Not Reportable 06/20/16 21:13 Tear Drop Cells Not Reportable 06/20/16 21:13 Ovalocytes Not Reportable 06/20/16 21:13 Helmet Cells Not Reportable 06/20/16 21:13 [place] Bodies Not Reportable 06/20/16 21:13 [place] Rings Not Reportable 06/20/16 21:13 [place] Cells Not Reportable 06/20/16 21:13 Bite Cells Not Reportable 06/20/16 21:13 Crenated Cell Not Reportable 06/20/16 21:13 Elliptocytes Not Reportable 06/20/16 21:13 Acanthocytes (Spur) Not Reportable 06/20/16 21:13 Rouleaux Not Reportable 06/20/16 21:13 Hemoglobin C Crystals Not Reportable 06/20/16 21:13 Schistocytes Not Reportable 06/20/16 21:13 Malaria parasites Not Reportable 06/20/16 21:13 Praneeth Bodies Not Reportable 06/20/16 21:13 Hem Pathologist Commnt No 06/20/16 21:13 PT 13.6 Sec. (12.2-14.9) 06/21/16 05:09 INR 1.05 (0.87-1.13) 06/21/16 05:09 APTT 34.3 Sec. (24.2-36.6) 06/21/16 05:09 Fibrinogen 249 mg/dl (211-480) 06/21/16 05:09 D-Dimer 2439.46 ng/mlDDU (0-234) H 06/21/16 05:09 Sodium 137 mmol/L (137-145) 06/21/16 06:44 Potassium 3.9 mmol/L (3.6-5.0) 06/21/16 06:44 Chloride 103.4 mmol/L (98-107) 06/21/16 06:44 Carbon Dioxide 18 mmol/L (22-30) L 06/21/16 06:44 Anion Gap 20 mmol/L 06/21/16 06:44 BUN 23 mg/dL (7-17) H 06/21/16 06:44 Creatinine 3.5 mg/dL (0.7-1.2) H 06/21/16 06:44 Estimated GFR 16 ml/min 06/21/16 06:44 BUN/Creatinine Ratio 6.57 % 06/21/16 06:44 Glucose 75 mg/dL (65-100) 06/21/16 06:44 POC Glucose 75 (70-105) 06/20/16 15:01 Calcium 6.3 mg/dL (8.4-10.2) L 06/21/16 06:44 Total Bilirubin 0.2 mg/dL (0.1-1.2) 06/20/16 11:41 AST 30 units/L (5-40) 06/20/16 11:41 ALT 11 units/L (7-56) 06/20/16 11:41 Alkaline Phosphatase 59 units/L (35-129) 06/20/16 11:41 Total Creatine Kinase 973 units/L (30-135) H 06/21/16 05:09 Total Protein 4.1 g/dL (6.3-8.2) L D 06/20/16 11:41 Albumin 2.3 g/dL (3.9-5) L 06/20/16 11:41 Albumin/Globulin Ratio 1.3 % 06/20/16 11:41 Urine Color Yellow (Yellow) 06/19/16 18:45 Urine Turbidity Turbid (Clear) 06/19/16 18:45 Urine pH 6.5 (5.0-7.0) 02/18/17 18:45 Ur Specific [place] 1.025 (1.003-1.030) 06/19/16 18:45 Urine Protein 30 mg/dl mg/dL (Negative) 06/19/16 18:45 Urine Glucose (UA) Negative mg/dL (Negative) 06/19/16 18:45 Urine Ketones Negative mg/dL (Negative) 06/19/16 18:45 Urine Blood Moderate (Negative) 06/19/16 18:45 Urine Nitrite Negative (Negative) 06/19/16 18:45 Ur Reducing Substances Not Reportable 06/19/16 18:45 Urine Bilirubin Negative (Negative) 06/19/16 18:45 Urine Ictotest Not Reportable 06/19/16 18:45 Urine Urobilinogen 0.2 mg/dL (<2.0) 06/19/16 18:45 Ur Leukocyte Esterase Negative (Negative) 06/19/16 18:45 Urine WBC (Auto) 1.0 /HPF (0.0-6.0) 06/19/16 18:45 Urine RBC (Auto) 4.0 /HPF (0.0-6.0) 06/19/16 18:45 U Epithel Cells (Auto) 1.0 /HPF (0-13.0) 06/19/16 18:45 Urine Bacteria (Auto) 1+ /HPF (Negative) 06/19/16 18:45 Urine Mucus 1+ /HPF 06/19/16 18:45 Urine Eosinophils None seen (None Seen) 06/21/16 05:30 Urine Creatinine 63.7 mg/dL (0.1-20.0) H 06/21/16 05:30 Urine Sodium 56 mEq/L 06/21/16 05:30 Urine Opiates Screen Presumptive negative 06/19/16 18:45 Urine Methadone Screen Presumptive negative 06/19/16 18:45 Ur Barbiturates Screen Presumptive negative 06/19/16 18:45 Ur Phencyclidine Scrn Presumptive negative 06/19/16 18:45 Ur Amphetamines Screen Presumptive negative 06/19/16 18:45 U Benzodiazepines Scrn Presumptive negative 06/19/16 18:45 Urine Cocaine Screen Presumptive negative 06/19/16 18:45 U Marijuana (THC) Screen Presumptive positive 06/19/16 18:45 Drugs of Abuse Note Disclamer 06/19/16 18:45 RPR Nonreactive (Nonreactive) 06/19/16 20:37 Hep Bs Antigen Non-reactive (Negative) 06/19/16 20:37 Hepatitis C Antibody Non-reactive (NonReactive) 06/19/16 20:37 HIV 1&2 Antibody Rapid Non react (Non React) 06/19/16 20:37 HIV P24 Antigen Non react (Non React) 06/19/16 20:37 Rubella IgG Antibody Immune (Immune) 06/19/16 20:37 Blood Type B POSITIVE 06/20/16 05:19 Antibody Screen Negative 06/20/16 05:19 Crossmatch See Detail 06/20/16 05:19
[2016-06-21] MEDS ORDERED: NACL 0.9% 500 ML 500 ML IV SCH (08:30)
--- NOTE | 2016-06-21 08:34 | Progress Note ---
Assessment and Plan POD # 1 s/p Primary LTCS for IUP @ 30 3/7 weeks - DIC -Acute renal failure P: -Nehrology and Hematology notes reviewed, Thx -Continue routine Post-op care -Possible transfer to floor as per ICU team - Patient Problems (1) S/P primary low transverse Current Visit: Yes Status: Acute (2) DIC (disseminated intravascular coagulation) Current Visit: Yes Status: Acute (3) Intrauterine in Onset Date: 06/19/16 Current Visit: Yes Status: Acute Qualifiers: Fetus number: single or unspecified fetus Qualified Code(s): O36.4XX0 - Maternal care for intrauterine , not applicable or unspecified (4) Electrolyte abnormality Current Visit: Yes Status: Acute Subjective - Subjective Date of service: 06/21/16 Principal diagnosis: POD # 1 s/p IUP @ 30 3/7 weeks; IUFD; Anuria, Thrombocytopenia Interval history: Patient seen and examined, stable. No fever or chills, no N/V. Has appropriate piyush-incisional pain Nephrology and Hem notes reviewed, thx Patient reports: voiding normally, pain well controlled [place]: Objective - Vital Signs Latest vital signs: Vital Signs Temp Pulse Resp BP BP Pulse Ox 06/21/16 07:23 94 06/21/16 06:30 125 H 23 134/86 90 06/21/16 06:08 98.9 F 120 H 29 H 118/71 93 06/21/16 06:00 131 H 20 113/74 95 06/21/16 05:30 142 H 29 H 118/71 93 06/21/16 05:00 125 H 28 H 112/79 91 06/21/16 04:30 123 H 17 118/71 90 06/21/16 04:26 98.9 F 06/21/16 04:00 129 H 27 H 127/82 96 06/21/16 03:30 116 H 21 127/82 92 06/21/16 03:00 99.2 F 118 H 20 113/74 96 06/21/16 02:57 98.8 F 108 H 19 119/77 97 06/21/16 02:30 127 H 24 126/102 96 06/21/16 02:00 114 H 22 119/63 96 06/21/16 01:50 98.4 F 112 H 18 119/63 97 06/21/16 01:30 112 H 22 121/72 97 06/21/16 01:20 98.3 F 112 H 16 121/72 99 06/21/16 01:00 129 H 22 135/84 100 06/21/16 00:50 98.3 F 107 H 20 135/84 100 06/21/16 00:30 112 H 21 132/72 97 06/21/16 00:20 98.3 F 116 H 18 132/72 06/21/16 00:00 121 H 18 126/85 100 06/20/16 23:31 99.5 F 06/20/16 23:30 112 H 20 126/85 100 06/20/16 23:00 99.5 F 117 H 22 136/90 100 06/20/16 22:34 98.1 F 118 H 21 135/87 98 06/20/16 22:30 120 H 19 127/89 100 06/20/16 22:20 99.2 F 117 H 21 132/70 98 06/20/16 22:04 98.9 F 122 H 22 139/88 100 06/20/16 22:00 128 H 14 135/87 100 06/20/16 21:30 133 H 24 139/88 100 06/20/16 21:00 118 H 19 124/70 100 06/20/16 20:30 108 H 19 124/70 100 06/20/16 20:00 118 H 20 124/66 100 06/20/16 19:46 99.0 F 06/20/16 19:30 108 H 16 122/81 100 06/20/16 19:00 119 H 25 H 131/81 100 06/20/16 18:34 116 H 21 131/81 100 06/20/16 18:30 102 H 22 131/81 99 06/20/16 18:16 94 H 18 124/77 100 06/20/16 18:00 94 H 26 H 124/77 100 06/20/16 17:46 93 H 20 133/89 100 06/20/16 17:30 104 H 19 133/89 100 06/20/16 17:16 111 H 23 140/85 100 06/20/16 17:00 118 H 17 140/85 100 06/20/16 16:46 105 H 21 131/77 100 06/20/16 16:30 115 H 25 H 131/77 100 06/20/16 16:16 102 H 16 132/82 100 06/20/16 16:00 86 16 132/82 100 06/20/16 15:50 98.1 F 100 H 18 119/77 100 06/20/16 15:46 100 H 17 119/77 100 06/20/16 15:35 98.1 F 101 H 22 131/77 1 L 06/20/16 15:30 92 H 17 119/77 100 06/20/16 15:16 84 18 130/82 100 06/20/16 15:05 98.0 F 102 H 18 132/82 100 06/20/16 15:00 108 H 17 130/82 100 06/20/16 14:46 90 18 113/69 100 06/20/16 14:30 101 H 18 113/69 100 06/20/16 14:16 96 H 22 126/85 99 06/20/16 14:00 87 19 126/85 99 06/20/16 13:56 88 06/20/16 13:00 98.1 F 100 H 18 119/77 100 06/20/16 12:29 88 98 06/20/16 12:25 92 H 130/79 06/20/16 12:24 92 H 97 06/20/16 12:00 98.2 F 93 H 18 130/79 99 06/20/16 11:54 94 H 128/87 06/20/16 11:39 91 H 99 06/20/16 11:34 79 99 06/20/16 11:32 98.5 F 115/70 06/20/16 11:29 85 98 06/20/16 11:25 96 H 115/70 06/20/16 11:24 72 98 06/20/16 11:20 100 H 118/85 06/20/16 11:19 98 H 99 06/20/16 11:00 98.5 F 97 H 18 118/85 99 06/20/16 10:55 96 H 119/77 06/20/16 10:48 90 99 06/20/16 10:43 96 H 99 06/20/16 10:38 100 H 99 06/20/16 10:33 94 H 99 06/20/16 10:30 98.4 F 88 20 119/77 99 06/20/16 10:28 94 H 99 06/20/16 10:23 96 H 99 06/20/16 10:18 97 H 98 06/20/16 10:13 98 H 114/75 99 06/20/16 10:08 101 H 98 06/20/16 10:05 98.5 F 104 H 18 114/75 99 06/20/16 10:03 101 H 99 06/20/16 09:58 100 H 116/78 99 06/20/16 09:53 97 H 99 06/20/16 09:48 110 H 118/86 100 06/20/16 09:47 98.9 F 107 H 18 118/86 100 06/20/16 09:43 99 H 99 06/20/16 09:39 98.9 F 97 H 18 118/86 99 06/20/16 09:38 111 H 100 06/20/16 09:33 104 H 100 06/20/16 09:31 20 06/20/16 09:28 97 H 99 06/20/16 09:26 111 H 120/88 06/20/16 09:23 103 H 100 06/20/16 09:21 98.4 F 100 H 18 120/88 100 06/20/16 09:18 108 H 99 06/20/16 09:13 107 H 99 06/20/16 09:08 112 H 98 06/20/16 09:03 97 H 100 06/20/16 08:58 105 H 100 06/20/16 08:56 110 H 113/68 06/20/16 08:53 118 H 100 06/20/16 08:51 98.0 F 107 H 18 113/68 100 06/20/16 08:48 99 H 99 06/20/16 08:43 109 H 100 06/20/16 08:38 109 H 99 06/20/16 08:33 102 H 99 06/20/16 08:28 115 H 98 Intake and Output 06/20/16 06/21/16 06/21/16 22:59 06:59 14:59 Intake Total 1237 1600 0 Balance 1237 1600 0 Intake: IV 895 1600 D5lr 1,000 ml @ 125 mls/ 770 100 hr IV DIRECT ELLA Rx#: [id number] NaCl 0.9% 500 ml 500 ml @ 500 As Directed IV ONCE ONE Rx#:[id number] NaCl 0.9% 500 ml 500 ml @ 500 As Directed IV ONCE ONE Rx#:[id number] NaCl 0.9% 500 ml 500 ml @ 500 As Directed IV ONCE ONE Rx#:[id number] PITOCin/NS 20 UNIT/1000ML 125 DRIP 20 units In 1,000 ml @ 250 mls/hr IV DIRECT ELLA Rx#:[id number] Blood Product 342 0 0 Fresh Frozen Plasma 0 0 Thawed Unit [id number] Fresh Frozen Plasma 342 Thawed Unit [id number] Leukoreduced Red Blood 0 Cells Unit [id number] Leukoreduced Red Blood 0 0 Cells Unit [id number] Other: Voiding Method Indwelling Catheter Indwelling Catheter Weight 80.739 kg - Exam Abdomen: Present: normal appearance, soft. Absent: distention, tenderness, guarding, rigidity Uterus: Present: fundal height below umbilicus. Absent: tenderness Extremities: Present: normal Incision: Present: dressed - Labs Labs: Abnormal lab results 06/20/16 06/20/16 06/20/16 Range/Units 05:19 11:00 11:41 WBC (4.5-11.0) K/mm3 RBC (3.65-5.03) M/mm3 Hgb (10.1-14.3) gm/dl Hct (30.3-42.9) % MCV (79-97) fl MCH (28-32) pg RDW (13.2-15.2) % Plt Count (140-440) K/mm3 Seg Neuts % (Manual) (40.0-70.0) % Seg Neutrophils # Man (1.8-7.7) K/mm3 Fibrinogen (211-480) mg/dl D-Dimer (0-234) ng/mlDDU Sodium (137-145) mmol/L Chloride 107.5 H (98-107) mmol/L Carbon Dioxide 17 L (22-30) mmol/L BUN 21 H (7-17) mg/dL Creatinine 2.5 H (0.7-1.2) mg/dL Glucose 125 H (65-100) mg/dL POC Glucose 107 H (70-105) Calcium 6.5 L (8.4-10.2) mg/dL Total Creatine Kinase (30-135) units/L Total Protein 4.1 L D (6.3-8.2) g/dL Albumin 2.3 L (3.9-5) g/dL Urine Creatinine (0.1-20.0) mg/dL Crossmatch See Detail 06/20/16 06/20/16 06/20/16 Range/Units 12:15 19:05 19:05 WBC 11.2 H (4.5-11.0) K/mm3 RBC 2.17 L (3.65-5.03) M/mm3 Hgb 5.4 L* D (10.1-14.3) gm/dl Hct 16.8 L* D (30.3-42.9) % MCV 78 L D (79-97) fl MCH 25 L (28-32) pg RDW 27.4 H (13.2-15.2) % Plt Count 46 L (140-440) K/mm3 Seg Neuts % (Manual) (40.0-70.0) % Seg Neutrophils # Man (1.8-7.7) K/mm3 Fibrinogen 198 L (211-480) mg/dl D-Dimer (0-234) ng/mlDDU Sodium (137-145) mmol/L Chloride (98-107) mmol/L Carbon Dioxide (22-30) mmol/L BUN (7-17) mg/dL Creatinine (0.7-1.2) mg/dL Glucose (65-100) mg/dL POC Glucose 65 L (70-105) Calcium (8.4-10.2) mg/dL Total Creatine Kinase (30-135) units/L Total Protein (6.3-8.2) g/dL Albumin (3.9-5) g/dL Urine Creatinine (0.1-20.0) mg/dL Crossmatch 06/20/16 06/20/16 06/21/16 Range/Units 21:13 21:38 05:09 WBC (4.5-11.0) K/mm3 RBC 2.12 L (3.65-5.03) M/mm3 Hgb 5.4 L* (10.1-14.3) gm/dl Hct 16.4 L* (30.3-42.9) % MCV 77 L (79-97) fl MCH 25 L (28-32) pg RDW 27.9 H (13.2-15.2) % Plt Count 52 L (140-440) K/mm3 Seg Neuts % (Manual) 78.0 H (40.0-70.0) % Seg Neutrophils # Man 8.5 H (1.8-7.7) K/mm3 Fibrinogen (211-480) mg/dl D-Dimer 2439.46 H (0-234) ng/mlDDU Sodium (137-145) mmol/L Chloride (98-107) mmol/L Carbon Dioxide 20 L (22-30) mmol/L BUN 23 H (7-17) mg/dL Creatinine 3.3 H (0.7-1.2) mg/dL Glucose (65-100) mg/dL POC Glucose (70-105) Calcium 6.5 L (8.4-10.2) mg/dL Total Creatine Kinase (30-135) units/L Total Protein (6.3-8.2) g/dL Albumin (3.9-5) g/dL Urine Creatinine (0.1-20.0) mg/dL Crossmatch 06/21/16 06/21/16 06/21/16 Range/Units 05:09 05:09 05:30 WBC (4.5-11.0) K/mm3 RBC (3.65-5.03) M/mm3 Hgb 8.1 L (10.1-14.3) gm/dl Hct 24.5 L D (30.3-42.9) % MCV (79-97) fl MCH (28-32) pg RDW (13.2-15.2) % Plt Count (140-440) K/mm3 Seg Neuts % (Manual) (40.0-70.0) % Seg Neutrophils # Man (1.8-7.7) K/mm3 Fibrinogen (211-480) mg/dl D-Dimer (0-234) ng/mlDDU Sodium 136 L (137-145) mmol/L Chloride (98-107) mmol/L Carbon Dioxide 19 L (22-30) mmol/L BUN 23 H (7-17) mg/dL Creatinine 3.5 H (0.7-1.2) mg/dL Glucose (65-100) mg/dL POC Glucose (70-105) Calcium 6.2 L (8.4-10.2) mg/dL Total Creatine Kinase 973 H (30-135) units/L Total Protein (6.3-8.2) g/dL Albumin (3.9-5) g/dL Urine Creatinine 63.7 H (0.1-20.0) mg/dL Crossmatch 06/21/16 Range/Units 06:44 WBC (4.5-11.0) K/mm3 RBC (3.65-5.03) M/mm3 Hgb (10.1-14.3) gm/dl Hct (30.3-42.9) % MCV (79-97) fl MCH (28-32) pg RDW (13.2-15.2) % Plt Count (140-440) K/mm3 Seg Neuts % (Manual) (40.0-70.0) % Seg Neutrophils # Man (1.8-7.7) K/mm3 Fibrinogen (211-480) mg/dl D-Dimer (0-234) ng/mlDDU Sodium (137-145) mmol/L Chloride (98-107) mmol/L Carbon Dioxide 18 L (22-30) mmol/L BUN 23 H (7-17) mg/dL Creatinine 3.5 H (0.7-1.2) mg/dL Glucose (65-100) mg/dL POC Glucose (70-105) Calcium 6.3 L (8.4-10.2) mg/dL Total Creatine Kinase (30-135) units/L Total Protein (6.3-8.2) g/dL Albumin (3.9-5) g/dL Urine Creatinine (0.1-20.0) mg/dL Crossmatch
--- NOTE | 2016-06-21 09:20 | Progress Note ---
Subjective Date of service: 06/21/16 Principal diagnosis: IUP @ 30 3/7 weeks; IUFD; Anuria, Thrombocytopenia Interval history: 2nd POD after for IUFD Postop period is complicated with DIC, possible HELLP syndrome. Continued blood transfusion. Platelets will be rechecked after 2 units of RBCs. Patient has some postoperative pain controlled with TURRET PUNCH OPERATOR pump. Plan is to keep epidural catheter in until the platelets count is back to above 100,000 Objective - Constitutional Vitals: Vital Signs - 12hr 06/20/16 06/20/16 06/20/16 21:30 22:00 22:04 Temperature 98.9 F Pulse Rate 133 H 128 H 122 H Pulse Rate [ From Monitor] Respiratory 24 14 22 Rate Blood Pressure 139/88 135/87 139/88 O2 Sat by Pulse 100 100 100 Oximetry 06/20/16 06/20/16 06/20/16 22:20 22:30 22:34 Temperature 99.2 F 98.1 F Pulse Rate 117 H 120 H 118 H Pulse Rate [ From Monitor] Respiratory 21 19 21 Rate Blood Pressure 132/70 127/89 135/87 O2 Sat by Pulse 98 100 98 Oximetry 06/20/16 06/20/16 06/20/16 23:00 23:30 23:31 Temperature 99.5 F 99.5 F Pulse Rate 117 H 112 H Pulse Rate [ From Monitor] Respiratory 22 20 Rate Blood Pressure 136/90 126/85 O2 Sat by Pulse 100 100 Oximetry 06/21/16 06/21/16 06/21/16 00:00 00:20 00:30 Temperature 98.3 F Pulse Rate 121 H 116 H 112 H Pulse Rate [ From Monitor] Respiratory 18 18 21 Rate Blood Pressure 126/85 132/72 132/72 O2 Sat by Pulse 100 97 Oximetry 06/21/16 06/21/16 06/21/16 00:50 01:00 01:20 Temperature 98.3 F 98.3 F Pulse Rate 107 H 129 H 112 H Pulse Rate [ From Monitor] Respiratory 20 22 16 Rate Blood Pressure 135/84 135/84 121/72 O2 Sat by Pulse 100 100 99 Oximetry 06/21/16 06/21/16 06/21/16 01:30 01:50 02:00 Temperature 98.4 F Pulse Rate 112 H 112 H 114 H Pulse Rate [ From Monitor] Respiratory 22 18 22 Rate Blood Pressure 121/72 119/63 119/63 O2 Sat by Pulse 97 97 96 Oximetry 06/21/16 06/21/16 06/21/16 02:30 02:57 03:00 Temperature 98.8 F 99.2 F Pulse Rate 127 H 108 H 118 H Pulse Rate [ From Monitor] Respiratory 24 19 20 Rate Blood Pressure 126/102 119/77 113/74 O2 Sat by Pulse 96 97 96 Oximetry 06/21/16 06/21/16 06/21/16 03:30 04:00 04:26 Temperature 98.9 F Pulse Rate 116 H 129 H Pulse Rate [ From Monitor] Respiratory 21 27 H Rate Blood Pressure 127/82 127/82 O2 Sat by Pulse 92 96 Oximetry 06/21/16 06/21/16 06/21/16 04:30 05:00 05:30 Temperature Pulse Rate 123 H 125 H 142 H Pulse Rate [ From Monitor] Respiratory 17 28 H 29 H Rate Blood Pressure 118/71 112/79 118/71 O2 Sat by Pulse 90 91 93 Oximetry 06/21/16 06/21/16 06/21/16 06:00 06:08 06:30 Temperature 98.9 F Pulse Rate 131 H 120 H 125 H Pulse Rate [ From Monitor] Respiratory 20 29 H 23 Rate Blood Pressure 113/74 118/71 134/86 O2 Sat by Pulse 95 93 90 Oximetry 06/21/16 06/21/16 06/21/16 06:50 07:00 07:10 Temperature 99.7 F H Pulse Rate 123 H 130 H 118 H Pulse Rate [ From Monitor] Respiratory 24 33 H 25 H Rate Blood Pressure 134/86 134/86 142/77 O2 Sat by Pulse 89 98 92 Oximetry 06/21/16 06/21/16 06/21/16 07:20 07:23 07:30 Temperature Pulse Rate 117 H 122 H Pulse Rate [ From Monitor] Respiratory 24 23 Rate Blood Pressure 142/77 139/82 O2 Sat by Pulse 94 94 95 Oximetry 06/21/16 06/21/16 06/21/16 07:40 07:50 08:00 Temperature 99.5 F Pulse Rate 114 H 115 H 119 H Pulse Rate [ 106 H From Monitor] Respiratory 24 21 30 H Rate Blood Pressure 139/82 139/82 150/78 O2 Sat by Pulse 93 95 97 Oximetry 06/21/16 06/21/16 06/21/16 08:10 08:20 08:30 Temperature Pulse Rate 121 H 110 H 112 H Pulse Rate [ From Monitor] Respiratory 37 H 26 H 33 H Rate Blood Pressure 150/78 150/78 129/79 O2 Sat by Pulse 97 98 97 Oximetry - Labs CBC & Chem 7: 06/21/16 05:09 06/21/16 06:44 Labs: Abnormal lab results 06/20/16 06/20/16 06/20/16 Range/Units 05:19 11:00 11:41 WBC (4.5-11.0) K/mm3 RBC (3.65-5.03) M/mm3 Hgb (10.1-14.3) gm/dl Hct (30.3-42.9) % MCV (79-97) fl MCH (28-32) pg RDW (13.2-15.2) % Plt Count (140-440) K/mm3 Seg Neuts % (Manual) (40.0-70.0) % Seg Neutrophils # Man (1.8-7.7) K/mm3 Fibrinogen (211-480) mg/dl D-Dimer (0-234) ng/mlDDU Sodium (137-145) mmol/L Chloride 107.5 H (98-107) mmol/L Carbon Dioxide 17 L (22-30) mmol/L BUN 21 H (7-17) mg/dL Creatinine 2.5 H (0.7-1.2) mg/dL Glucose 125 H (65-100) mg/dL POC Glucose 107 H (70-105) Calcium 6.5 L (8.4-10.2) mg/dL Total Creatine Kinase (30-135) units/L Total Protein 4.1 L D (6.3-8.2) g/dL Albumin 2.3 L (3.9-5) g/dL Urine Creatinine (0.1-20.0) mg/dL Crossmatch See Detail 06/20/16 06/20/16 06/20/16 Range/Units 12:15 19:05 19:05 WBC 11.2 H (4.5-11.0) K/mm3 RBC 2.17 L (3.65-5.03) M/mm3 Hgb 5.4 L* D (10.1-14.3) gm/dl Hct 16.8 L* D (30.3-42.9) % MCV 78 L D (79-97) fl MCH 25 L (28-32) pg RDW 27.4 H (13.2-15.2) % Plt Count 46 L (140-440) K/mm3 Seg Neuts % (Manual) (40.0-70.0) % Seg Neutrophils # Man (1.8-7.7) K/mm3 Fibrinogen 198 L (211-480) mg/dl D-Dimer (0-234) ng/mlDDU Sodium (137-145) mmol/L Chloride (98-107) mmol/L Carbon Dioxide (22-30) mmol/L BUN (7-17) mg/dL Creatinine (0.7-1.2) mg/dL Glucose (65-100) mg/dL POC Glucose 65 L (70-105) Calcium (8.4-10.2) mg/dL Total Creatine Kinase (30-135) units/L Total Protein (6.3-8.2) g/dL Albumin (3.9-5) g/dL Urine Creatinine (0.1-20.0) mg/dL Crossmatch 06/20/16 06/20/16 06/21/16 Range/Units 21:13 21:38 05:09 WBC (4.5-11.0) K/mm3 RBC 2.12 L (3.65-5.03) M/mm3 Hgb 5.4 L* (10.1-14.3) gm/dl Hct 16.4 L* (30.3-42.9) % MCV 77 L (79-97) fl MCH 25 L (28-32) pg RDW 27.9 H (13.2-15.2) % Plt Count 52 L (140-440) K/mm3 Seg Neuts % (Manual) 78.0 H (40.0-70.0) % Seg Neutrophils # Man 8.5 H (1.8-7.7) K/mm3 Fibrinogen (211-480) mg/dl D-Dimer 2439.46 H (0-234) ng/mlDDU Sodium (137-145) mmol/L Chloride (98-107) mmol/L Carbon Dioxide 20 L (22-30) mmol/L BUN 23 H (7-17) mg/dL Creatinine 3.3 H (0.7-1.2) mg/dL Glucose (65-100) mg/dL POC Glucose (70-105) Calcium 6.5 L (8.4-10.2) mg/dL Total Creatine Kinase (30-135) units/L Total Protein (6.3-8.2) g/dL Albumin (3.9-5) g/dL Urine Creatinine (0.1-20.0) mg/dL Crossmatch 06/21/16 06/21/16 06/21/16 Range/Units 05:09 05:09 05:30 WBC (4.5-11.0) K/mm3 RBC (3.65-5.03) M/mm3 Hgb 8.1 L (10.1-14.3) gm/dl Hct 24.5 L D (30.3-42.9) % MCV (79-97) fl MCH (28-32) pg RDW (13.2-15.2) % Plt Count (140-440) K/mm3 Seg Neuts % (Manual) (40.0-70.0) % Seg Neutrophils # Man (1.8-7.7) K/mm3 Fibrinogen (211-480) mg/dl D-Dimer (0-234) ng/mlDDU Sodium 136 L (137-145) mmol/L Chloride (98-107) mmol/L Carbon Dioxide 19 L (22-30) mmol/L BUN 23 H (7-17) mg/dL Creatinine 3.5 H (0.7-1.2) mg/dL Glucose (65-100) mg/dL POC Glucose (70-105) Calcium 6.2 L (8.4-10.2) mg/dL Total Creatine Kinase 973 H (30-135) units/L Total Protein (6.3-8.2) g/dL Albumin (3.9-5) g/dL Urine Creatinine 63.7 H (0.1-20.0) mg/dL Crossmatch 06/21/16 Range/Units 06:44 WBC (4.5-11.0) K/mm3 RBC (3.65-5.03) M/mm3 Hgb (10.1-14.3) gm/dl Hct (30.3-42.9) % MCV (79-97) fl MCH (28-32) pg RDW (13.2-15.2) % Plt Count (140-440) K/mm3 Seg Neuts % (Manual) (40.0-70.0) % Seg Neutrophils # Man (1.8-7.7) K/mm3 Fibrinogen (211-480) mg/dl D-Dimer (0-234) ng/mlDDU Sodium (137-145) mmol/L Chloride (98-107) mmol/L Carbon Dioxide 18 L (22-30) mmol/L BUN 23 H (7-17) mg/dL Creatinine 3.5 H (0.7-1.2) mg/dL Glucose (65-100) mg/dL POC Glucose (70-105) Calcium 6.3 L (8.4-10.2) mg/dL Total Creatine Kinase (30-135) units/L Total Protein (6.3-8.2) g/dL Albumin (3.9-5) g/dL Urine Creatinine (0.1-20.0) mg/dL Crossmatch
[2016-06-21] MEDS: PRENATAL VITAMIN PO SCH (10:48)
[2016-06-21] MEDS: PERCOCET 5/325 PO PRN (10:49)
[2016-06-21] MEDS: THERAGRAN Tab PO SCH (10:49)
[2016-06-21] MEDS: FEOSOL PO SCH (10:49)
--- NOTE | 2016-06-21 11:53 | Ultrasound Report ---
OB ULTRASOUND HISTORY: well-being. COMMENT: Please note this examination is just presented to me for interpretation. Technique: Transabdominal ultrasound with Doppler interrogation. Gestation: Cross Position: Cephalic Amniotic Fluid: WNL (7-24 cm) MEHDI = 14.2 cm Placenta: Right lateral Placental Grade: II Heart Rate: 0 BPM BPD: 7.8 cm = 31 w 2 d HC: 28.1 cm = 30 w 5 d AC: 25.4 cm = 29 w 4 d FL: 5.9 cm = 31 w 0 d Estimated Weight: 1540 grams LMP: Uncertain US Gest. Age = 30 w 4 d EDC: 08-24-16 COMMENT: No heart tones could be demonstrated during the examination consistent with demise. The placenta contains a large heterogeneous but primarily hyperechoic masslike lesion near its uterine border. It is unclear if this represents an abruption or possibly a placental mass. It has a nonspecific appearance.
[2016-06-21] MEDS ORDERED: FLUARIX QUAD 2016-2017(36 MOS+) IM ONE (12:00)
[2016-06-21] MEDS: NORCO 5/325 PO PRN ×2 (15:13→18:09)
[2016-06-21] MEDS ORDERED: BENADRYL IV ONE (19:12)
--- NOTE | 2016-06-21 21:24 | Consultation ---
History of Present Illness - Reason for Consult Consult date: 06/21/16 - History of Present Illness Patient seen early this am, resting in bed, labs She does not appear toxic, but still having abd pain.for the past 24hrs have been reviewed, revealing consumptive coagulopathy. ,as well as severe anemia. She has received, some blood ,and blood products, with some improvement., but still having some abd pain. Past History Past Medical History: hypertension Social history: no significant social history, single Family history: no significant family history Medications and Allergies Allergies Allergy/AdvReac Type Severity Reaction Status Date / Time No Known Allergies Allergy Verified 06/12/16 10:38 Home Medications Medication Instructions Recorded Confirmed Last Taken Type Multiple Vitamins For Women 1 tab PO DAILY 06/12/16 06/21/16 06/17/16 History Active Meds: Active Medications Acetaminophen (Tylenol) 650 mg PO Q4H PRN PRN Reason: Fever >100.5/VEGAS Acetaminophen/Hydrocodone Bitart ([place] 5/325) 1 each PO Q4H PRN PRN Reason: Pain, Moderate (4-6) Last Admin: 06/21/16 18:09 Dose: 1 each Ferrous Sulfate (Feosol) 325 mg PO QDAY [facility] Last Admin: 06/21/16 10:49 Dose: 325 mg Dextrose/Lactated Ringer's (D5lr) 1,000 mls @ 60 mls/hr IV DIRECT ELLA Last Admin: 06/20/16 15:04 Dose: 125 mls/hr Sodium Chloride (Nacl 0.9% 500 Ml) 500 mls @ 50 mls/hr IV DIRECT ELLA Magnesium Hydroxide (Milk Of Magnesia) 30 ml PO QHS PRN PRN Reason: Constip Unrelieved By Senna Morphine Sulfate (Morphine Docking Saw Operator 30mg/30ml) 0 mg IV DIRECT ELLA PRN Reason: Protocol Last Admin: 06/20/16 21:38 Dose: 5.3 mg Multi-Ingredient Ointment (Lansinoh) 1 applic TP PRN PRN PRN Reason: dryness/cracking Multivitamins (Theragran Tab) 1 each PO DAILY [facility] Last Admin: 06/21/16 10:49 Dose: 1 each Multivitamins/Iron/Calcium ( Vitamin) 1 each PO QDAY [facility] Last Admin: 06/21/16 10:48 Dose: 1 each Naloxone HCl (Narcan 0.4 Mg/1 Ml) 0.1 mg IV Q2MIN PRN PRN Reason: Res Rate </= 8 or 02 SAT < 92% Ondansetron HCl (Zofran) 4 mg IV Q8H PRN PRN Reason: Nausea And Vomiting Oxycodone/Acetaminophen (Percocet 5/325) 2 tab PO Q6H PRN PRN Reason: Pain, Moderate (4-6) Last Admin: 06/21/16 10:49 Dose: 2 tab Senna (Senokot) 17.2 mg PO QHS PRN PRN Reason: Constipation Simethicone (Mylicon) 80 mg PO Q6H PRN PRN Reason: Gas pain Sodium Chloride (Sodium Chloride Flush Syringe 10 Ml) 10 ml IV PRN PRN PRN Reason: flush Witch Gayla/Glycerin (Tucks Pad) 1 each TP PRN PRN PRN Reason: Hemorrhoids/cleansing/soothing Review of Systems Breasts: deferred Gastrointestinal: abdominal pain Exam - Constitutional Vitals: Temp Pulse Resp BP Pulse Ox 98.3 F 74 23 150/100 95 06/21/16 21:00 06/21/16 21:00 06/21/16 21:00 06/21/16 21:00 06/21/16 21:00 General appearance: Present: no acute distress, well-nourished - EENT Eyes: Present: PERRL ENT: hearing intact, clear oral mucosa - Neck Neck: Present: supple, normal ROM - Respiratory Respiratory effort: normal Respiratory: bilateral: CTA - Cardiovascular Heart Sounds: Present: S1 & S2. Absent: rub, click - Extremities Extremities: pulses symmetrical, No edema Peripheral Pulses: within normal limits - Abdominal General gastrointestinal: Present: soft, non-tender, non-distended, normal bowel sounds Female genitourinary: Present: deferred - Rectal Rectal Exam: deferred - Integumentary Integumentary: Present: clear, warm, dry - Musculoskeletal Musculoskeletal: gait normal, strength equal bilaterally - Psychiatric Psychiatric: appropriate mood/affect, intact judgment & insight - Neurologic Neurologic: CNII-XII intact, moves all extremities Results - Labs CBC & Chem 7: 06/21/16 05:09 06/21/16 06:44 Labs: Abnormal lab results 06/20/16 06/20/16 06/20/16 Range/Units 05:19 21:13 21:38 RBC 2.12 L (3.65-5.03) M/mm3 Hgb 5.4 L* (10.1-14.3) gm/dl Hct 16.4 L* (30.3-42.9) % MCV 77 L (79-97) fl MCH 25 L (28-32) pg RDW 27.9 H (13.2-15.2) % Plt Count 52 L (140-440) K/mm3 Seg Neuts % (Manual) 78.0 H (40.0-70.0) % Seg Neutrophils # Man 8.5 H (1.8-7.7) K/mm3 D-Dimer (0-234) ng/mlDDU Sodium (137-145) mmol/L Carbon Dioxide 20 L (22-30) mmol/L BUN 23 H (7-17) mg/dL Creatinine 3.3 H (0.7-1.2) mg/dL Calcium 6.5 L (8.4-10.2) mg/dL Total Creatine Kinase (30-135) units/L Urine Creatinine (0.1-20.0) mg/dL Crossmatch See Detail 06/21/16 06/21/16 06/21/16 Range/Units 05:09 05:09 05:09 RBC (3.65-5.03) M/mm3 Hgb 8.1 L (10.1-14.3) gm/dl Hct 24.5 L D (30.3-42.9) % MCV (79-97) fl MCH (28-32) pg RDW (13.2-15.2) % Plt Count (140-440) K/mm3 Seg Neuts % (Manual) (40.0-70.0) % Seg Neutrophils # Man (1.8-7.7) K/mm3 D-Dimer 2439.46 H (0-234) ng/mlDDU Sodium 136 L (137-145) mmol/L Carbon Dioxide 19 L (22-30) mmol/L BUN 23 H (7-17) mg/dL Creatinine 3.5 H (0.7-1.2) mg/dL Calcium 6.2 L (8.4-10.2) mg/dL Total Creatine Kinase 973 H (30-135) units/L Urine Creatinine (0.1-20.0) mg/dL Crossmatch 06/21/16 06/21/16 Range/Units 05:30 06:44 RBC (3.65-5.03) M/mm3 Hgb (10.1-14.3) gm/dl Hct (30.3-42.9) % MCV (79-97) fl MCH (28-32) pg RDW (13.2-15.2) % Plt Count (140-440) K/mm3 Seg Neuts % (Manual) (40.0-70.0) % Seg Neutrophils # Man (1.8-7.7) K/mm3 D-Dimer (0-234) ng/mlDDU Sodium (137-145) mmol/L Carbon Dioxide 18 L (22-30) mmol/L BUN 23 H (7-17) mg/dL Creatinine 3.5 H (0.7-1.2) mg/dL Calcium 6.3 L (8.4-10.2) mg/dL Total Creatine Kinase (30-135) units/L Urine Creatinine 63.7 H (0.1-20.0) mg/dL Crossmatch Assessment and Plan - Patient Problems (1) Hyperkalemia Current Visit: Yes Status: Acute Plan to address problem: deffer to the renal service. (2) Intrauterine in Onset Date: 06/19/16 Current Visit: Yes Status: Acute Qualifiers: Fetus number: single or unspecified fetus Qualified Code(s): O36.4XX0 - Maternal care for intrauterine , not applicable or unspecified Plan to address problem: the fetus is already evacuated, continue to tx the underlying issues. (3) CHRISTOPHER (acute kidney injury) Current Visit: Yes Status: Acute Plan to address problem: Follow renal service. (4) DIC (disseminated intravascular coagulation) Current Visit: Yes Status: Acute Plan to address problem: See full w/up, and management. see notes above.
[2016-06-21] MEDS: D5LR 1,000 ML IV SCH (21:53)
[2016-06-21] MEDS ORDERED: NORMODYNE PO SCH (22:00)
[2016-06-21] MEDS ORDERED: APRESOLINE IV STA (23:05)
[2016-06-21] MEDS ORDERED: PROCARDIA XL PO ONE (23:06)
[2016-06-22 00:50] LABS: Hematocrit 36.2 % (30.3-42.9); Hemoglobin 11.9 gm/dl (10.1-14.3); Mean Corpuscular HGB Conc 33 % (30-34); Mean Corpuscular Hemoglobin 27 pg (28-32); Mean Corpuscular Volume 82 fl (79-97); Red Cell Distribution Width 18.7 % (13.2-15.2)
[2016-06-22 00:52] LABS: Hematocrit 35.7 % (30.3-42.9); Mean Corpuscular HGB Conc 34 % (30-34); Mean Corpuscular Hemoglobin 27 pg (28-32); Mean Corpuscular Volume 81 fl (79-97); Platelet Count 60 K/mm3 (140-440); Red Blood Count 4.39 M/mm3 (3.65-5.03); Red Cell Distribution Width 17.2 % (13.2-15.2); White Blood Count 23.3 K/mm3 (4.5-11.0)
[2016-06-22 00:53] LABS: Platelet Count 61 K/mm3 (140-440); White Blood Count 23.1 K/mm3 (4.5-11.0)
[2016-06-22 01:04] LABS: BUN/Creatinine Ratio 7.71; Calcium 6.9 mg/dL (8.4-10.2); Chloride 100.5 mmol/L (98-107); Potassium 4.2 mmol/L (3.6-5.0)
[2016-06-22 01:05] LABS: BUN/Creatinine Ratio 7.5; Potassium 4.2 mmol/L (3.6-5.0)
[2016-06-22] MEDS ORDERED: APRESOLINE IV STA (02:24)
[2016-06-22] MEDS ORDERED: MAGNESIUM SULFATE 1 GM in NACL 0.9% 50 ML IV ONE (02:29)
[2016-06-22] MEDS ORDERED: ROBITUSSIN AC PO ONE (03:14)
[2016-06-22] MEDS: PERCOCET 5/325 PO PRN ×3 (03:22→13:57)
[2016-06-22] MEDS: ZOSYN/NS 2.25 GM/50ML 2.25 GM/50 ML BAG IV SCH ×3 (04:00→21:21)
[2016-06-22 04:49] LABS: Hematocrit 34.7 % (30.3-42.9); Hemoglobin 11.7 gm/dl (10.1-14.3); Mean Corpuscular HGB Conc 34 % (30-34); Mean Corpuscular Hemoglobin 27 pg (28-32); Mean Corpuscular Volume 81 fl (79-97); Red Blood Count 4.28 M/mm3 (3.65-5.03); Red Cell Distribution Width 17.6 % (13.2-15.2); White Blood Count 19.8 K/mm3 (4.5-11.0)
[2016-06-22 05:04] LABS: Platelet Count 69 K/mm3 (140-440)
[2016-06-22 05:12] LABS: Albumin 2.7 g/dL (3.9-5); BUN/Creatinine Ratio 7.17; Bilirubin,Total 0.3 mg/dL (0.1-1.2); Calcium 7.1 mg/dL (8.4-10.2); Potassium 3.9 mmol/L (3.6-5.0); Total Protein 5.3 g/dL (6.3-8.2)
[2016-06-22 05:25] LABS: Basophils % (Manual) 0 % (0.0-1.8); Blastocytes % (Manual) 0 %; Eosinophils % (Manual) 0 % (0.0-4.3); Total Cells Counted Percent 0
[2016-06-22 05:26] LABS: Anisocytosis 1+; Hypochromasia Rare; Polychromasia Rare
[2016-06-22 05:27] LABS: Diff Status Complete; Platelet Estimate Appears Decreased
[2016-06-22 05:30] LABS: Anisocytosis 1+; Basophils % (Manual) 0 % (0.0-1.8); Blastocytes % (Manual) 0 %; Diff Status Complete; Eosinophils % (Manual) 0 % (0.0-4.3); Platelet Estimate Appears Decreased; Polychromasia Rare; Smudge Cells Rare; Total Cells Counted Percent 0
--- NOTE | 2016-06-22 07:24 | Progress Note ---
Assessment and Plan - Patient Problems (1) CHRISTOPHER (acute kidney injury) Current Visit: Yes Status: Acute Plan to address problem: Acute kidney Injury in the setting of hypotension, severe anemia, placental abruption and DIC. BP is better. Urine output is good. Slight increase in Creatinine since yesterday noted. Renal US is negative. Continue IV fluids. (2) Hyperkalemia Current Visit: Yes Status: Acute Plan to address problem: Improved. Monitor K level. (3) Metabolic acidosis Current Visit: Yes Status: Acute Plan to address problem: Continue IV fluids and monitor acid-base status. (4) Intrauterine in Onset Date: 06/19/16 Current Visit: Yes Status: Acute Qualifiers: Fetus number: single or unspecified fetus Qualified Code(s): O36.4XX0 - Maternal care for intrauterine , not applicable or unspecified (5) DIC (disseminated intravascular coagulation) Current Visit: Yes Status: Acute Plan to address problem: Followed by Heme-Onc. Subjective Date of service: 06/22/16 Principal diagnosis: IUP @ 30 3/7 weeks; IUFD; Anuria, Thrombocytopenia Interval history: Patient c/o pain over the lower abdomen. Objective - Vital Signs Vital signs: Vital Signs - 12hr 06/21/16 06/21/16 06/21/16 19:30 19:39 19:41 Temperature 99 F Pulse Rate 76 110 H 79 Respiratory 17 18 28 H Rate Blood Pressure 141/86 137/86 141/86 O2 Sat by Pulse 93 95 96 Oximetry 06/21/16 06/21/16 06/21/16 19:45 19:51 19:55 Temperature 99 F Pulse Rate 79 75 Respiratory 20 22 17 Rate Blood Pressure 141/85 141/85 O2 Sat by Pulse 96 99 Oximetry 06/21/16 06/21/16 06/21/16 20:00 20:01 20:11 Temperature 99 F Pulse Rate 74 82 76 Respiratory 17 34 H 25 H Rate Blood Pressure 148/74 148/74 148/74 O2 Sat by Pulse 98 95 99 Oximetry 06/21/16 06/21/16 06/21/16 20:21 20:25 20:30 Temperature Pulse Rate 70 81 Respiratory 27 H 22 Rate Blood Pressure 152/89 159/100 O2 Sat by Pulse 99 98 98 Oximetry 06/21/16 06/21/16 06/21/16 20:41 20:51 21:00 Temperature 98.3 F 98.3 F Pulse Rate 87 74 73 Respiratory 29 H 24 24 Rate Blood Pressure 159/100 150/100 160/104 O2 Sat by Pulse 97 96 94 Oximetry 06/21/16 06/21/16 06/21/16 21:09 21:17 21:30 Temperature 98.6 F Pulse Rate 84 84 83 Respiratory 99 H 33 H 28 H Rate Blood Pressure 150/99 164/105 158/132 O2 Sat by Pulse 96 97 Oximetry 06/21/16 06/21/16 06/21/16 22:00 22:30 22:38 Temperature 99 F Pulse Rate 82 74 82 Respiratory 24 29 H 22 Rate Blood Pressure 171/113 181/105 190/122 O2 Sat by Pulse 95 88 Oximetry 06/21/16 06/21/16 06/21/16 23:00 23:20 23:30 Temperature Pulse Rate 87 94 H 85 Respiratory 24 24 Rate Blood Pressure 174/117 175/104 170/122 O2 Sat by Pulse 86 96 Oximetry 06/21/16 06/22/16 06/22/16 23:43 00:00 00:30 Temperature 98.3 F 98.3 F Pulse Rate 88 80 99 H Respiratory 22 20 28 H Rate Blood Pressure 171/105 169/102 175/104 O2 Sat by Pulse 96 98 98 Oximetry 06/22/16 06/22/16 06/22/16 01:00 01:30 02:00 Temperature Pulse Rate 89 100 H 94 H Respiratory 27 H 34 H 29 H Rate Blood Pressure 171/108 151/104 167/103 O2 Sat by Pulse 96 90 86 Oximetry 06/22/16 06/22/16 06/22/16 02:05 02:30 03:00 Temperature 98.3 F Pulse Rate 101 H 107 H Respiratory 32 H 34 H Rate Blood Pressure 160/108 131/91 O2 Sat by Pulse 85 89 Oximetry 06/22/16 06/22/16 06/22/16 03:30 04:00 04:30 Temperature 98.6 F Pulse Rate 105 H 103 H 102 H Respiratory 29 H 31 H 27 H Rate Blood Pressure 135/90 136/87 119/80 O2 Sat by Pulse 96 94 97 Oximetry 06/22/16 06/22/16 06/22/16 05:00 05:30 06:00 Temperature Pulse Rate 100 H 96 H 99 H Respiratory 16 33 H 18 Rate Blood Pressure 122/84 123/86 116/76 O2 Sat by Pulse 97 98 98 Oximetry 06/22/16 07:17 Temperature Pulse Rate Respiratory 18 Rate Blood Pressure O2 Sat by Pulse Oximetry - General Appearance General appearance: well-developed, well-nourished, other (no distress) EENT: PERRL, mucous membranes moist, hearing intact, vision intact Neck: no JVD, no carotid bruit, supple Respiratory: Present: Clear to Ascultation Cardiology: regular, S1S2, no murmurs Gastrointestinal: normoactive bowel sounds, tenderness (over the lower abdomen) Integumentary: no rash, warm and dry Neurologic: no focal deficit, no asterixis, alert and oriented x3, CN 3-12 intact Musculoskeletal: other (no edema) Psychiatric: mood/affect appropriate, cooperative - Lab 06/22/16 08:30 06/22/16 03:58 Most recent lab results Calcium 7.1 mg/dL (8.4-10.2) L 06/22/16 03:58 Urine Creatinine 63.7 mg/dL (0.1-20.0) H 06/21/16 05:30 Urine Sodium 56 mEq/L 06/21/16 05:30
[2016-06-22] MEDS: NORCO 5/325 PO PRN ×2 (08:05→17:04)
--- NOTE | 2016-06-22 08:47 | Progress Note ---
Assessment and Plan POD # 2 s/p Primary LTCS for IUP @ 30 3/7 weeks - DIC -Acute renal failure -Elevated BP Meds: -labetalol 300mg TID -Losarten 100mg QD P: -Nehrology and Hematology notes reviewed, Thx -Continue routine Post-op care -Obtain mag level -Final disposition per ICU team - Patient Problems (1) S/P primary low transverse Current Visit: Yes Status: Acute (2) DIC (disseminated intravascular coagulation) Current Visit: Yes Status: Acute (3) Intrauterine in Onset Date: 06/19/16 Current Visit: Yes Status: Acute Qualifiers: Fetus number: single or unspecified fetus Qualified Code(s): O36.4XX0 - Maternal care for intrauterine , not applicable or unspecified (4) Electrolyte abnormality Current Visit: Yes Status: Acute Subjective - Subjective Date of service: 06/22/16 Principal diagnosis: POD # 2, IUP @ 30 3/7 weeks; IUFD; DIC w/ MOF Interval history: Patient seen and examined. No fever or chills, no N/V, c/o SOB but sats are >90 on RM air. Has appropriate piyush-incisional pain Pressure elevated yesterday max systolic in the 170s to 190s/100's. Started on antihypertensives some improvement noted Patient also received 1 g magnesium bolus (No maintenance dose due to renal failure) Nephrology and Hem notes reviewed, thx Patient reports: appetite normal, voiding normally, pain well controlled [place]: Objective - Vital Signs Latest vital signs: Vital Signs Temp Pulse Pulse Pulse Resp BP Pulse Ox 06/22/16 08:00 98 F 06/22/16 07:30 96 06/22/16 07:17 18 06/22/16 06:00 99 H 18 116/76 98 06/22/16 05:30 96 H 33 H 123/86 98 06/22/16 05:00 100 H 16 122/84 97 06/22/16 04:30 102 H 27 H 119/80 97 06/22/16 04:00 98.6 F 103 H 31 H 136/87 94 06/22/16 03:30 105 H 29 H 135/90 96 06/22/16 03:00 107 H 34 H 131/91 89 06/22/16 02:30 101 H 32 H 160/108 85 06/22/16 02:05 98.3 F 06/22/16 02:00 94 H 29 H 167/103 86 06/22/16 01:30 100 H 34 H 151/104 90 06/22/16 01:00 89 27 H 171/108 96 06/22/16 00:30 99 H 28 H 175/104 98 06/22/16 00:00 98.3 F 80 20 169/102 98 06/21/16 23:43 98.3 F 88 22 171/105 96 06/21/16 23:30 85 24 170/122 96 06/21/16 23:20 94 H 175/104 06/21/16 23:00 87 24 174/117 86 06/21/16 22:38 99 F 82 22 190/122 06/21/16 22:30 74 29 H 181/105 88 06/21/16 22:00 82 24 171/113 95 06/21/16 21:30 83 28 H 158/132 97 06/21/16 21:17 84 33 H 164/105 96 06/21/16 21:09 98.6 F 84 99 H 150/99 06/21/16 21:00 98.3 F 73 24 160/104 94 06/21/16 20:51 98.3 F 74 24 150/100 96 06/21/16 20:41 87 29 H 159/100 97 06/21/16 20:30 81 22 159/100 98 06/21/16 20:25 98 06/21/16 20:21 70 27 H 152/89 99 06/21/16 20:11 76 25 H 148/74 99 06/21/16 20:01 82 34 H 148/74 95 06/21/16 20:00 99 F 74 17 148/74 98 06/21/16 19:55 17 06/21/16 19:51 75 22 141/85 99 06/21/16 19:45 99 F 79 20 141/85 96 06/21/16 19:41 79 28 H 141/86 96 06/21/16 19:39 99 F 110 H 18 137/86 95 06/21/16 19:30 76 17 141/86 93 06/21/16 19:21 80 25 H 137/86 95 06/21/16 19:00 97 H 17 131/86 83 L 06/21/16 18:30 102 H 23 135/94 80 L 06/21/16 18:09 21 06/21/16 18:00 86 18 147/98 81 L 06/21/16 17:30 94 H 22 129/86 83 L 06/21/16 17:00 102 H 27 H 145/100 85 06/21/16 16:49 98.2 F 88 21 151/94 92 06/21/16 16:30 79 22 152/86 92 06/21/16 16:24 98.6 F 87 11 L 148/88 90 06/21/16 16:00 98.6 F 81 25 H 146/91 95 06/21/16 15:54 98.4 F 82 24 152/94 95 06/21/16 15:38 98.5 F 109 H 32 H 144/79 90 06/21/16 15:30 112 H 37 H 144/79 91 06/21/16 15:20 86 25 H 149/93 92 06/21/16 15:10 98.4 F 106 H 31 H 115/66 89 06/21/16 15:00 81 26 H 149/93 95 06/21/16 14:50 86 17 144/82 94 06/21/16 14:40 89 18 144/82 94 06/21/16 14:30 98.2 F 90 23 144/82 90 06/21/16 14:20 91 H 14 145/113 94 06/21/16 14:13 99 F 90 21 144/82 93 06/21/16 14:10 94 H 28 H 153/87 95 06/21/16 14:00 85 21 130/67 94 06/21/16 13:50 90 21 130/67 94 06/21/16 13:43 98.2 F 87 21 130/67 93 06/21/16 13:40 92 H 25 H 125/86 96 06/21/16 13:30 91 H 20 125/86 93 06/21/16 13:20 95 H 18 125/86 92 06/21/16 13:13 99 F 92 H 18 124/81 93 06/21/16 13:10 98 H 20 124/81 91 06/21/16 13:00 97 H 26 H 124/81 90 06/21/16 12:50 104 H 22 128/86 91 06/21/16 12:43 98.2 F 100 H 23 124/81 90 06/21/16 12:40 97 H 25 H 128/86 91 06/21/16 12:30 97 H 29 H 128/86 90 06/21/16 12:20 106 H 20 136/26 93 06/21/16 12:13 98.5 F 99 H 26 H 128/80 91 06/21/16 12:10 105 H 22 136/26 94 06/21/16 12:00 98.5 F 131 H 109 H 109 H 22 139/89 93 06/21/16 11:50 109 H 23 139/89 91 06/21/16 11:43 98.3 F 108 H 20 128/77 91 06/21/16 11:35 99.0 F 110 H 25 H 139/89 92 06/21/16 11:30 110 H 23 124/77 89 06/21/16 11:28 990 F H 110 H 25 H 139/89 92 06/21/16 11:25 22 06/21/16 11:20 106 H 25 H 149/88 92 06/21/16 11:19 98.7 F 106 H 21 123/74 94 06/21/16 11:10 105 H 24 149/88 91 06/21/16 11:00 103 H 28 H 130/58 90 06/21/16 10:53 99.5 F 99 H 25 H 149/88 90 06/21/16 10:50 145 H 32 H 130/58 85 06/21/16 10:40 101 H 20 130/58 95 06/21/16 10:30 123 H 40 H 160/90 92 06/21/16 10:23 99.0 F 124 H 25 H 130/58 93 06/21/16 10:20 99 H 29 H 160/90 92 06/21/16 10:10 121 H 31 H 160/90 93 06/21/16 10:00 103 H 28 H 160/90 93 06/21/16 09:53 98.5 F 110 H 28 H 160/90 06/21/16 09:50 112 H 22 158/87 95 06/21/16 09:40 108 H 23 158/87 95 06/21/16 09:30 113 H 28 H 158/87 96 06/21/16 09:25 23 06/21/16 09:23 98.7 F 109 H 23 158/87 96 06/21/16 09:20 106 H 23 153/96 97 06/21/16 09:10 114 H 27 H 149/86 97 06/21/16 09:00 99.9 F H 107 H 23 149/86 96 06/21/16 08:50 108 H 24 154/88 97 Intake and Output 06/21/16 06/22/16 06/22/16 22:59 06:59 14:59 Intake Total 1180 820 Output Total 2300 1100 Balance -1120 -280 Intake: IV 480 580 Lactated Ringers 1,000 ml 480 480 As .ROUTE .STK-MED ONE Rx#:[id number] Magnesium Sulfate 1 gm In 50 NaCl 0.9% 50 ml @ 52 mls /hr IV ONCE ONE Rx#: [id number] ZOSYN/NS 2.25 GM/50ML 2. 50 25 gm In 50 ml @ 100 mls/ hr IV Q8H [facility] Rx#: [id number] Oral 400 240 Intake, Free Water 300 Blood Product 0 0 Fresh Frozen Plasma 0 Thawed Unit [id number] Fresh Frozen Plasma 0 Thawed Unit [id number] Leukoreduced Red Blood 0 Cells Unit [id number] Platelet Pheresis Unit 0 [id number] Output: Urine 2300 1100 Indwelling Catheter 2300 1100 Other: Total, Intake Amount 400 240 Total, Output Amount 500 550 Voiding Method Indwelling Catheter Indwelling Catheter - Exam Abdomen: Present: normal appearance, soft. Absent: distention, tenderness, guarding, rigidity Uterus: Present: fundal height below umbilicus. Absent: tenderness Extremities: Present: normal Incision: Present: dry, intact - Labs Labs: Abnormal lab results 06/20/16 06/21/16 06/21/16 Range/Units 05:19 23:28 23:28 WBC 23.1 H (4.5-11.0) K/mm3 MCH 27 L (28-32) pg RDW 17.2 H (13.2-15.2) % Plt Count 61 L (140-440) K/mm3 Seg Neuts % (Manual) 96.0 H (40.0-70.0) % Lymphocytes % (Manual) 1.0 L (13.4-35.0) % Seg Neutrophils # Man 22.2 H (1.8-7.7) K/mm3 Lymphocytes # (Manual) 0.2 L (1.2-5.4) K/mm3 Sodium 134 L (137-145) mmol/L Carbon Dioxide 17 L (22-30) mmol/L BUN 27 H (7-17) mg/dL Creatinine 3.6 H (0.7-1.2) mg/dL Glucose 111 H (65-100) mg/dL Calcium 7.0 L (8.4-10.2) mg/dL Total Protein (6.3-8.2) g/dL Albumin (3.9-5) g/dL Crossmatch See Detail 06/21/16 06/21/16 06/22/16 Range/Units 23:28 23:28 03:58 WBC 23.3 H 19.8 H (4.5-11.0) K/mm3 MCH 27 L 27 L (28-32) pg RDW 18.7 H 17.6 H (13.2-15.2) % Plt Count 60 L 69 L (140-440) K/mm3 Seg Neuts % (Manual) (40.0-70.0) % Lymphocytes % (Manual) 2.0 L (13.4-35.0) % Seg Neutrophils # Man 22.4 H (1.8-7.7) K/mm3 Lymphocytes # (Manual) 0.5 L (1.2-5.4) K/mm3 Sodium 135 L (137-145) mmol/L Carbon Dioxide 17 L (22-30) mmol/L BUN 27 H (7-17) mg/dL Creatinine 3.5 H (0.7-1.2) mg/dL Glucose 111 H (65-100) mg/dL Calcium 6.9 L (8.4-10.2) mg/dL Total Protein (6.3-8.2) g/dL Albumin (3.9-5) g/dL Crossmatch 06/22/16 Range/Units 03:58 WBC (4.5-11.0) K/mm3 MCH (28-32) pg RDW (13.2-15.2) % Plt Count (140-440) K/mm3 Seg Neuts % (Manual) (40.0-70.0) % Lymphocytes % (Manual) (13.4-35.0) % Seg Neutrophils # Man (1.8-7.7) K/mm3 Lymphocytes # (Manual) (1.2-5.4) K/mm3 Sodium 136 L (137-145) mmol/L Carbon Dioxide 16 L (22-30) mmol/L BUN 28 H (7-17) mg/dL Creatinine 3.9 H (0.7-1.2) mg/dL Glucose 132 H (65-100) mg/dL Calcium 7.1 L (8.4-10.2) mg/dL Total Protein 5.3 L D (6.3-8.2) g/dL Albumin 2.7 L (3.9-5) g/dL Crossmatch
[2016-06-22 08:57] LABS: Hematocrit 37.1 % (30.3-42.9); Hemoglobin 12.4 gm/dl (10.1-14.3); Mean Corpuscular HGB Conc 33 % (30-34); Mean Corpuscular Hemoglobin 27 pg (28-32); Mean Corpuscular Volume 81 fl (79-97); Red Blood Count 4.59 M/mm3 (3.65-5.03); Red Cell Distribution Width 18.3 % (13.2-15.2); White Blood Count 18.9 K/mm3 (4.5-11.0)
[2016-06-22 09:08] LABS: Platelet Count 77 K/mm3 (140-440)
[2016-06-22 09:17] LABS: Albumin 2.9 g/dL (3.9-5); BUN/Creatinine Ratio 7.63; Bilirubin,Total 0.3 mg/dL (0.1-1.2); Calcium 7.6 mg/dL (8.4-10.2); Chloride 100.4 mmol/L (98-107); Potassium 4.3 mmol/L (3.6-5.0); Total Protein 5.9 g/dL (6.3-8.2)
[2016-06-22] MEDS: NORMODYNE PO SCH ×2 (09:19→21:18)
[2016-06-22] MEDS: COZAAR PO SCH (09:20)
[2016-06-22] MEDS: FEOSOL PO SCH (09:20)
[2016-06-22] MEDS: THERAGRAN Tab PO SCH (09:20)
[2016-06-22] MEDS: PRENATAL VITAMIN PO SCH (09:23)
[2016-06-22 09:41] LABS: Basophils % (Manual) 0 % (0.0-1.8); Blastocytes % (Manual) 0 %; Eosinophils % (Manual) 0 % (0.0-4.3)
[2016-06-22 09:42] LABS: Anisocytosis 1+; Diff Status Complete; Large Platelets Few; Platelet Estimate Cons; Polychromasia Few
--- NOTE | 2016-06-22 10:33 | Consultation ---
History of Present Illness Consult date: 06/22/16 Requesting physician: ANSHU BAIRES History of present illness: PULMONARY/CCM CONSULT NOTE (Full dictation # ) Please see dictated notes for full details Past History Past Medical History: hypertension Social history: no significant social history, single Family history: no significant family history Medications and Allergies Allergies Allergy/AdvReac Type Severity Reaction Status Date / Time No Known Allergies Allergy Verified 06/12/16 10:38 Home Medications Medication Instructions Recorded Confirmed Last Taken Type Multiple Vitamins For Women 1 tab PO DAILY 06/12/16 06/21/16 06/17/16 History Active Meds: Active Medications Acetaminophen (Tylenol) 650 mg PO Q4H PRN PRN Reason: Fever >100.5/VEGAS Acetaminophen/Hydrocodone Bitart ([place] 5/325) 1 each PO Q4H PRN PRN Reason: Pain, Moderate (4-6) Last Admin: 06/22/16 08:05 Dose: 1 each Ferrous Sulfate (Feosol) 325 mg PO QDAY [facility] Last Admin: 06/22/16 09:20 Dose: 325 mg Sodium Chloride (Nacl 0.9% 500 Ml) 500 mls @ 50 mls/hr IV DIRECT ELLA Piperacillin Sod/Tazobactam Sod (Zosyn/Ns 2.25 Gm/50ml) 2.25 gm in 50 mls @ 100 mls/hr IV Q8H ELLA PRN Reason: Protocol Last Admin: 06/22/16 04:00 Dose: 100 mls/hr Sodium Bicarbonate 150 meq/ (Sterile Water) 1,150 mls @ 100 mls/hr IV DIRECT ELLA Labetalol HCl (Normodyne) 300 mg PO BID [facility] Last Admin: 06/22/16 09:19 Dose: 300 mg Losartan Potassium (Cozaar) 100 mg PO QDAY [facility] Last Admin: 06/22/16 09:20 Dose: 100 mg Magnesium Hydroxide (Milk Of Magnesia) 30 ml PO QHS PRN PRN Reason: Constip Unrelieved By Senna Morphine Sulfate (Morphine Poultry Offal Icer 30mg/30ml) 0 mg IV DIRECT ELLA PRN Reason: Protocol Last Admin: 06/20/16 21:38 Dose: 5.3 mg Multi-Ingredient Ointment (Lansinoh) 1 applic TP PRN PRN PRN Reason: dryness/cracking Multivitamins (Theragran Tab) 1 each PO DAILY ELLA Last Admin: 06/22/16 09:20 Dose: 1 each Multivitamins/Iron/Calcium ( Vitamin) 1 each PO QDAY [facility] Last Admin: 06/22/16 09:23 Dose: 1 each Naloxone HCl (Narcan 0.4 Mg/1 Ml) 0.1 mg IV Q2MIN PRN PRN Reason: Res Rate </= 8 or 02 SAT < 92% Ondansetron HCl (Zofran) 4 mg IV Q8H PRN PRN Reason: Nausea And Vomiting Oxycodone/Acetaminophen (Percocet 5/325) 2 tab PO Q6H PRN PRN Reason: Pain, Moderate (4-6) Last Admin: 06/22/16 09:17 Dose: 1 tab Senna (Senokot) 17.2 mg PO QHS PRN PRN Reason: Constipation Simethicone (Mylicon) 80 mg PO Q6H PRN PRN Reason: Gas pain Sodium Chloride (Sodium Chloride Flush Syringe 10 Ml) 10 ml IV PRN PRN PRN Reason: flush Witch Gayla/Glycerin (Tucks Pad) 1 each TP PRN PRN PRN Reason: Hemorrhoids/cleansing/soothing Physical Examination Vital signs: Vital Signs Pulse Pulse Ox 58 L 100 06/19/16 18:22 06/19/16 18:22 Results - Laboratory Findings CBC and BMP: 06/22/16 08:30 06/22/16 08:30 PT/INR, D-dimer PT 13.6 Sec. (12.2-14.9) 06/21/16 05:09 INR 1.05 (0.87-1.13) 06/21/16 05:09 D-Dimer 2439.46 ng/mlDDU (0-234) H 06/21/16 05:09 Abnormal lab findings: Abnormal Labs 06/19/16 06/20/16 06/20/16 20:37 03:17 03:17 WBC 23.8 H 16.8 H RBC 3.08 L Hgb 8.5 L Hct 26.4 L D MCV MCH 27 L RDW Plt Count 139 L 58 L Lymph % (Auto) 5.8 L Lymph # 1.0 L [place] # 0.9 H Seg Neutrophils % 88.5 H Seg Neuts % (Manual) 92.5 H Lymphocytes % (Manual) 3.5 L Nucleated RBC % Seg Neutrophils # 14.9 H Seg Neutrophils # Man 22.0 H Lymphocytes # (Manual) 0.8 L Monocytes # (Manual) 1.0 H PT INR APTT Fibrinogen D-Dimer Sodium Potassium 7.0 H* Chloride Carbon Dioxide 19 L BUN Creatinine 1.8 H Glucose 115 H POC Glucose Calcium 7.6 L AST Total Creatine Kinase Total Protein 5.2 L Albumin 2.9 L Urine Creatinine Crossmatch 06/20/16 06/20/16 06/20/16 03:17 05:19 05:47 WBC RBC Hgb Hct MCV MCH RDW Plt Count Lymph % (Auto) Lymph # [place] # Seg Neutrophils % Seg Neuts % (Manual) Lymphocytes % (Manual) Nucleated RBC % Seg Neutrophils # Seg Neutrophils # Man Lymphocytes # (Manual) Monocytes # (Manual) PT 19.1 H INR 1.61 H APTT 39.4 H Fibrinogen < 60 L* D-Dimer Sodium Potassium 6.9 H* Chloride Carbon Dioxide BUN Creatinine Glucose POC Glucose Calcium AST Total Creatine Kinase Total Protein Albumin Urine Creatinine Crossmatch See Detail 06/20/16 06/20/16 06/20/16 07:37 11:00 11:41 WBC RBC Hgb Hct MCV MCH RDW Plt Count Lymph % (Auto) Lymph # [place] # Seg Neutrophils % Seg Neuts % (Manual) Lymphocytes % (Manual) Nucleated RBC % Seg Neutrophils # Seg Neutrophils # Man Lymphocytes # (Manual) Monocytes # (Manual) PT INR APTT Fibrinogen D-Dimer Sodium Potassium Chloride 107.5 H Carbon Dioxide 17 L BUN 21 H Creatinine 2.5 H Glucose 125 H POC Glucose 117 H 107 H Calcium 6.5 L AST Total Creatine Kinase Total Protein 4.1 L D Albumin 2.3 L Urine Creatinine Crossmatch 06/20/16 06/20/16 06/20/16 12:15 19:05 19:05 WBC 11.2 H RBC 2.17 L Hgb 5.4 L* D Hct 16.8 L* D MCV 78 L D MCH 25 L RDW 27.4 H Plt Count 46 L Lymph % (Auto) Lymph # [place] # Seg Neutrophils % Seg Neuts % (Manual) Lymphocytes % (Manual) Nucleated RBC % Seg Neutrophils # Seg Neutrophils # Man Lymphocytes # (Manual) Monocytes # (Manual) PT INR APTT Fibrinogen 198 L D-Dimer Sodium Potassium Chloride Carbon Dioxide BUN Creatinine Glucose POC Glucose 65 L Calcium AST Total Creatine Kinase Total Protein Albumin Urine Creatinine Crossmatch 06/20/16 06/20/16 06/21/16 21:13 21:38 05:09 WBC RBC 2.12 L Hgb 5.4 L* Hct 16.4 L* MCV 77 L MCH 25 L RDW 27.9 H Plt Count 52 L Lymph % (Auto) Lymph # [place] # Seg Neutrophils % Seg Neuts % (Manual) 78.0 H Lymphocytes % (Manual) Nucleated RBC % Seg Neutrophils # Seg Neutrophils # Man 8.5 H Lymphocytes # (Manual) Monocytes # (Manual) PT INR APTT Fibrinogen D-Dimer 2439.46 H Sodium Potassium Chloride Carbon Dioxide 20 L BUN 23 H Creatinine 3.3 H Glucose POC Glucose Calcium 6.5 L AST Total Creatine Kinase Total Protein Albumin Urine Creatinine Crossmatch 06/21/16 06/21/16 06/21/16 05:09 05:09 05:30 WBC RBC Hgb 8.1 L Hct 24.5 L D MCV MCH RDW Plt Count Lymph % (Auto) Lymph # [place] # Seg Neutrophils % Seg Neuts % (Manual) Lymphocytes % (Manual) Nucleated RBC % Seg Neutrophils # Seg Neutrophils # Man Lymphocytes # (Manual) Monocytes # (Manual) PT INR APTT Fibrinogen D-Dimer Sodium 136 L Potassium Chloride Carbon Dioxide 19 L BUN 23 H Creatinine 3.5 H Glucose POC Glucose Calcium 6.2 L AST Total Creatine Kinase 973 H Total Protein Albumin Urine Creatinine 63.7 H Crossmatch 06/21/16 06/21/16 06/21/16 06:44 23:28 23:28 WBC 23.1 H RBC Hgb Hct MCV MCH 27 L RDW 17.2 H Plt Count 61 L Lymph % (Auto) Lymph # [place] # Seg Neutrophils % Seg Neuts % (Manual) 96.0 H Lymphocytes % (Manual) 1.0 L Nucleated RBC % Seg Neutrophils # Seg Neutrophils # Man 22.2 H Lymphocytes # (Manual) 0.2 L Monocytes # (Manual) PT INR APTT Fibrinogen D-Dimer Sodium 134 L Potassium Chloride Carbon Dioxide 18 L 17 L BUN 23 H 27 H Creatinine 3.5 H 3.6 H Glucose 111 H POC Glucose Calcium 6.3 L 7.0 L AST Total Creatine Kinase Total Protein Albumin Urine Creatinine Crossmatch 06/21/16 06/21/16 06/22/16 23:28 23:28 03:58 WBC 23.3 H 19.8 H RBC Hgb Hct MCV MCH 27 L 27 L RDW 18.7 H 17.6 H Plt Count 60 L 69 L Lymph % (Auto) Lymph # [place] # Seg Neutrophils % Seg Neuts % (Manual) Lymphocytes % (Manual) 2.0 L Nucleated RBC % Seg Neutrophils # Seg Neutrophils # Man 22.4 H Lymphocytes # (Manual) 0.5 L Monocytes # (Manual) PT INR APTT Fibrinogen D-Dimer Sodium 135 L Potassium Chloride Carbon Dioxide 17 L BUN 27 H Creatinine 3.5 H Glucose 111 H POC Glucose Calcium 6.9 L AST Total Creatine Kinase Total Protein Albumin Urine Creatinine Crossmatch 06/22/16 06/22/16 06/22/16 03:58 08:30 08:30 WBC 18.9 H RBC Hgb Hct MCV MCH 27 L RDW 18.3 H Plt Count 77 L Lymph % (Auto) Lymph # [place] # Seg Neutrophils % Seg Neuts % (Manual) 90.0 H Lymphocytes % (Manual) 6.0 L Nucleated RBC % 1.0 H Seg Neutrophils # Seg Neutrophils # Man 17.0 H Lymphocytes # (Manual) 1.1 L Monocytes # (Manual) PT INR APTT Fibrinogen D-Dimer Sodium 136 L Potassium Chloride Carbon Dioxide 16 L 18 L BUN 28 H 29 H Creatinine 3.9 H 3.8 H Glucose 132 H 134 H POC Glucose Calcium 7.1 L 7.6 L AST 42 H Total Creatine Kinase Total Protein 5.3 L D 5.9 L Albumin 2.7 L 2.9 L Urine Creatinine Crossmatch
[2016-06-22 10:38] LABS: ISTAT Base Excess -7; ISTAT HCO3 16.8; ISTAT PCO2 24.9 (35-45); ISTAT PH 7.437 (7.35-7.45); ISTAT PO2 70 (80-105); ISTAT SO2 95; ISTAT TCO2 18
[2016-06-22 10:41] LABS: Hematocrit 35.5 % (30.3-42.9); Hemoglobin 11.8 gm/dl (10.1-14.3); Mean Corpuscular HGB Conc 33 % (30-34); Mean Corpuscular Hemoglobin 27 pg (28-32); Mean Corpuscular Volume 81 fl (79-97); Red Blood Count 4.38 M/mm3 (3.65-5.03); Red Cell Distribution Width 18.3 % (13.2-15.2); White Blood Count 18.3 K/mm3 (4.5-11.0)
[2016-06-22 10:44] LABS: Platelet Count 85 K/mm3 (140-440)
--- NOTE | 2016-06-22 10:51 | Progress Note ---
Subjective Date of service: 06/22/16 Principal diagnosis: IUP @ 30 3/7 weeks; IUFD; Anuria, Thrombocytopenia Interval history: 3rd POD after Patient is still in ICU, recovering. Kidney function is improving, along with anemia. There is a positive trend in thrombocytopenia as well Last platelets count was 77,000. Still has an epidural catheter in until platelets count gets to 100,000 Objective - Constitutional Vitals: Vital Signs - 12hr 06/21/16 06/21/16 06/21/16 23:00 23:20 23:30 Temperature Pulse Rate 87 94 H 85 Respiratory 24 24 Rate Blood Pressure 174/117 175/104 170/122 O2 Sat by Pulse 86 96 Oximetry 06/21/16 06/22/16 06/22/16 23:43 00:00 00:30 Temperature 98.3 F 98.3 F Pulse Rate 88 80 99 H Respiratory 22 20 28 H Rate Blood Pressure 171/105 169/102 175/104 O2 Sat by Pulse 96 98 98 Oximetry 06/22/16 06/22/16 06/22/16 01:00 01:30 02:00 Temperature Pulse Rate 89 100 H 94 H Respiratory 27 H 34 H 29 H Rate Blood Pressure 171/108 151/104 167/103 O2 Sat by Pulse 96 90 86 Oximetry 06/22/16 06/22/16 06/22/16 02:05 02:30 03:00 Temperature 98.3 F Pulse Rate 101 H 107 H Respiratory 32 H 34 H Rate Blood Pressure 160/108 131/91 O2 Sat by Pulse 85 89 Oximetry 06/22/16 06/22/16 06/22/16 03:30 04:00 04:30 Temperature 98.6 F Pulse Rate 105 H 103 H 102 H Respiratory 29 H 31 H 27 H Rate Blood Pressure 135/90 136/87 119/80 O2 Sat by Pulse 96 94 97 Oximetry 06/22/16 06/22/16 06/22/16 05:00 05:30 06:00 Temperature Pulse Rate 100 H 96 H 99 H Respiratory 16 33 H 18 Rate Blood Pressure 122/84 123/86 116/76 O2 Sat by Pulse 97 98 98 Oximetry 06/22/16 06/22/16 06/22/16 07:17 07:30 08:00 Temperature 98 F Pulse Rate Respiratory 18 Rate Blood Pressure O2 Sat by Pulse 96 Oximetry 06/22/16 06/22/16 09:19 09:20 Temperature Pulse Rate 111 H 109 H Respiratory Rate Blood Pressure 128/89 128/89 O2 Sat by Pulse Oximetry - Labs CBC & Chem 7: 06/22/16 10:11 06/22/16 08:30 Labs: Abnormal lab results 06/20/16 06/21/16 06/21/16 Range/Units 05:19 23:28 23:28 WBC 23.1 H (4.5-11.0) K/mm3 MCH 27 L (28-32) pg RDW 17.2 H (13.2-15.2) % Plt Count 61 L (140-440) K/mm3 Seg Neuts % (Manual) 96.0 H (40.0-70.0) % Lymphocytes % (Manual) 1.0 L (13.4-35.0) % Nucleated RBC % (0.0-0.9) % Seg Neutrophils # Man 22.2 H (1.8-7.7) K/mm3 Lymphocytes # (Manual) 0.2 L (1.2-5.4) K/mm3 POC ABG pCO2 (35-45) POC ABG pO2 (80-105) Sodium 134 L (137-145) mmol/L Carbon Dioxide 17 L (22-30) mmol/L BUN 27 H (7-17) mg/dL Creatinine 3.6 H (0.7-1.2) mg/dL Glucose 111 H (65-100) mg/dL Calcium 7.0 L (8.4-10.2) mg/dL AST (5-40) units/L Total Protein (6.3-8.2) g/dL Albumin (3.9-5) g/dL Crossmatch See Detail 06/21/16 06/21/16 06/22/16 Range/Units 23:28 23:28 03:58 WBC 23.3 H 19.8 H (4.5-11.0) K/mm3 MCH 27 L 27 L (28-32) pg RDW 18.7 H 17.6 H (13.2-15.2) % Plt Count 60 L 69 L (140-440) K/mm3 Seg Neuts % (Manual) (40.0-70.0) % Lymphocytes % (Manual) 2.0 L (13.4-35.0) % Nucleated RBC % (0.0-0.9) % Seg Neutrophils # Man 22.4 H (1.8-7.7) K/mm3 Lymphocytes # (Manual) 0.5 L (1.2-5.4) K/mm3 POC ABG pCO2 (35-45) POC ABG pO2 (80-105) Sodium 135 L (137-145) mmol/L Carbon Dioxide 17 L (22-30) mmol/L BUN 27 H (7-17) mg/dL Creatinine 3.5 H (0.7-1.2) mg/dL Glucose 111 H (65-100) mg/dL Calcium 6.9 L (8.4-10.2) mg/dL AST (5-40) units/L Total Protein (6.3-8.2) g/dL Albumin (3.9-5) g/dL Crossmatch 06/22/16 06/22/16 06/22/16 Range/Units 03:58 08:30 08:30 WBC 18.9 H (4.5-11.0) K/mm3 MCH 27 L (28-32) pg RDW 18.3 H (13.2-15.2) % Plt Count 77 L (140-440) K/mm3 Seg Neuts % (Manual) 90.0 H (40.0-70.0) % Lymphocytes % (Manual) 6.0 L (13.4-35.0) % Nucleated RBC % 1.0 H (0.0-0.9) % Seg Neutrophils # Man 17.0 H (1.8-7.7) K/mm3 Lymphocytes # (Manual) 1.1 L (1.2-5.4) K/mm3 POC ABG pCO2 (35-45) POC ABG pO2 (80-105) Sodium 136 L (137-145) mmol/L Carbon Dioxide 16 L 18 L (22-30) mmol/L BUN 28 H 29 H (7-17) mg/dL Creatinine 3.9 H 3.8 H (0.7-1.2) mg/dL Glucose 132 H 134 H (65-100) mg/dL Calcium 7.1 L 7.6 L (8.4-10.2) mg/dL AST 42 H (5-40) units/L Total Protein 5.3 L D 5.9 L (6.3-8.2) g/dL Albumin 2.7 L 2.9 L (3.9-5) g/dL Crossmatch 06/22/16 06/22/16 Range/Units 10:11 10:31 WBC 18.3 H (4.5-11.0) K/mm3 MCH 27 L (28-32) pg RDW 18.3 H (13.2-15.2) % Plt Count 85 L (140-440) K/mm3 Seg Neuts % (Manual) (40.0-70.0) % Lymphocytes % (Manual) (13.4-35.0) % Nucleated RBC % (0.0-0.9) % Seg Neutrophils # Man (1.8-7.7) K/mm3 Lymphocytes # (Manual) (1.2-5.4) K/mm3 POC ABG pCO2 24.9 L (35-45) POC ABG pO2 70 L (80-105) Sodium (137-145) mmol/L Carbon Dioxide (22-30) mmol/L BUN (7-17) mg/dL Creatinine (0.7-1.2) mg/dL Glucose (65-100) mg/dL Calcium (8.4-10.2) mg/dL AST (5-40) units/L Total Protein (6.3-8.2) g/dL Albumin (3.9-5) g/dL Crossmatch
[2016-06-22 11:27] LABS: Basophils % (Manual) 0 % (0.0-1.8); Blastocytes % (Manual) 0 %; Eosinophils % (Manual) 0 % (0.0-4.3)
[2016-06-22 11:28] LABS: Anisocytosis Few; Diff Status Complete; Large Platelets Few; Ovalocytes Few; Platelet Estimate Appears Decreased; Polychromasia Few
[2016-06-22] MEDS: SODIUM BICARBONATE 150 MEQ in STERILE WATER 1,000 ML IV SCH (11:54)
[2016-06-22 15:29] LABS: BUN/Creatinine Ratio 9.09; Calcium 7.1 mg/dL (8.4-10.2); Potassium 4.2 mmol/L (3.6-5.0)
--- NOTE | 2016-06-22 15:35 | Progress Note ---
Assessment and Plan 1. DIC: From placenta abruption. Improving with normalizing Fibrinogen level . 2. Acute Renal failure: Creatinin level plateauing. continu with iv hydration 3. Hypokalemia: Corrected. Check lytes Subjective Date of service: 06/22/16 Principal diagnosis: IUP @ 30 3/7 weeks; IUFD; Anuria, Thrombocytopenia Interval history: No new complaint. Alert and interactive Objective - Constitutional Vitals: Vital Signs - 12hr 06/22/16 06/22/16 06/22/16 04:00 04:30 05:00 Temperature 98.6 F Pulse Rate 103 H 102 H 100 H Respiratory 31 H 27 H 16 Rate Blood Pressure 136/87 119/80 122/84 O2 Sat by Pulse 94 97 97 Oximetry 06/22/16 06/22/16 06/22/16 05:30 06:00 06:30 Temperature Pulse Rate 96 H 99 H 93 H Respiratory 33 H 18 24 Rate Blood Pressure 123/86 116/76 129/89 O2 Sat by Pulse 98 98 97 Oximetry 06/22/16 06/22/16 06/22/16 07:00 07:17 07:30 Temperature Pulse Rate 99 H 78 Respiratory 29 H 18 27 H Rate Blood Pressure 134/89 137/90 O2 Sat by Pulse 99 97 Oximetry 06/22/16 06/22/16 06/22/16 08:00 08:30 09:00 Temperature 98 F Pulse Rate 101 H 114 H 111 H Respiratory 14 33 H 25 H Rate Blood Pressure 136/86 132/93 128/89 O2 Sat by Pulse 96 91 90 Oximetry 06/22/16 06/22/16 06/22/16 09:19 09:20 09:30 Temperature Pulse Rate 111 H 109 H 102 H Respiratory 30 H Rate Blood Pressure 128/89 128/89 135/95 O2 Sat by Pulse 95 Oximetry 06/22/16 06/22/16 06/22/16 10:00 10:30 11:00 Temperature Pulse Rate 104 H 105 H 108 H Respiratory 29 H 25 H 39 H Rate Blood Pressure 149/98 139/92 121/83 O2 Sat by Pulse 95 94 96 Oximetry 06/22/16 06/22/16 06/22/16 11:31 12:00 12:30 Temperature 98.5 F Pulse Rate 103 H 107 H 102 H Respiratory 28 H 34 H 27 H Rate Blood Pressure 123/81 123/83 129/82 O2 Sat by Pulse 96 93 95 Oximetry 06/22/16 06/22/16 13:01 13:30 Temperature Pulse Rate 114 H 114 H Respiratory 37 H 21 Rate Blood Pressure 129/82 128/84 O2 Sat by Pulse 93 92 Oximetry General appearance: Present: no acute distress, well-nourished - EENT Eyes: PERRL, EOM intact ENT: hearing intact, clear oral mucosa Ears: bilateral: normal - Neck Neck: supple, normal ROM - Respiratory Respiratory effort: normal Respiratory: bilateral: CTA - Cardiovascular Rhythm: regular Heart Sounds: Present: S1 & S2. Absent: gallop, rub Extremities: pulses intact, No edema, normal color, Full ROM - Gastrointestinal General gastrointestinal: Present: soft, non-distended, normal bowel sounds - Integumentary Integumentary: clear, warm, dry - Musculoskeletal Musculoskeletal: 1, strength equal bilaterally - Neurologic Neurologic: moves all extremities - Psychiatric Psychiatric: memory intact, appropriate mood/affect, intact judgment & insight - Labs CBC & Chem 7: 06/22/16 10:11 06/22/16 14:49 Labs: Abnormal lab results 06/20/16 06/21/16 06/21/16 Range/Units 05:19 23:28 23:28 WBC 23.1 H (4.5-11.0) K/mm3 MCH 27 L (28-32) pg RDW 17.2 H (13.2-15.2) % Plt Count 61 L (140-440) K/mm3 Seg Neuts % (Manual) 96.0 H (40.0-70.0) % Lymphocytes % (Manual) 1.0 L (13.4-35.0) % Nucleated RBC % (0.0-0.9) % Seg Neutrophils # Man 22.2 H (1.8-7.7) K/mm3 Lymphocytes # (Manual) 0.2 L (1.2-5.4) K/mm3 POC ABG pCO2 (35-45) POC ABG pO2 (80-105) Sodium 134 L (137-145) mmol/L Carbon Dioxide 17 L (22-30) mmol/L BUN 27 H (7-17) mg/dL Creatinine 3.6 H (0.7-1.2) mg/dL Glucose 111 H (65-100) mg/dL Calcium 7.0 L (8.4-10.2) mg/dL AST (5-40) units/L Total Protein (6.3-8.2) g/dL Albumin (3.9-5) g/dL Crossmatch See Detail 06/21/16 06/21/16 06/22/16 Range/Units 23:28 23:28 03:58 WBC 23.3 H 19.8 H (4.5-11.0) K/mm3 MCH 27 L 27 L (28-32) pg RDW 18.7 H 17.6 H (13.2-15.2) % Plt Count 60 L 69 L (140-440) K/mm3 Seg Neuts % (Manual) (40.0-70.0) % Lymphocytes % (Manual) 2.0 L (13.4-35.0) % Nucleated RBC % (0.0-0.9) % Seg Neutrophils # Man 22.4 H (1.8-7.7) K/mm3 Lymphocytes # (Manual) 0.5 L (1.2-5.4) K/mm3 POC ABG pCO2 (35-45) POC ABG pO2 (80-105) Sodium 135 L (137-145) mmol/L Carbon Dioxide 17 L (22-30) mmol/L BUN 27 H (7-17) mg/dL Creatinine 3.5 H (0.7-1.2) mg/dL Glucose 111 H (65-100) mg/dL Calcium 6.9 L (8.4-10.2) mg/dL AST (5-40) units/L Total Protein (6.3-8.2) g/dL Albumin (3.9-5) g/dL Crossmatch 06/22/16 06/22/16 06/22/16 Range/Units 03:58 08:30 08:30 WBC 18.9 H (4.5-11.0) K/mm3 MCH 27 L (28-32) pg RDW 18.3 H (13.2-15.2) % Plt Count 77 L (140-440) K/mm3 Seg Neuts % (Manual) 90.0 H (40.0-70.0) % Lymphocytes % (Manual) 6.0 L (13.4-35.0) % Nucleated RBC % 1.0 H (0.0-0.9) % Seg Neutrophils # Man 17.0 H (1.8-7.7) K/mm3 Lymphocytes # (Manual) 1.1 L (1.2-5.4) K/mm3 POC ABG pCO2 (35-45) POC ABG pO2 (80-105) Sodium 136 L (137-145) mmol/L Carbon Dioxide 16 L 18 L (22-30) mmol/L BUN 28 H 29 H (7-17) mg/dL Creatinine 3.9 H 3.8 H (0.7-1.2) mg/dL Glucose 132 H 134 H (65-100) mg/dL Calcium 7.1 L 7.6 L (8.4-10.2) mg/dL AST 42 H (5-40) units/L Total Protein 5.3 L D 5.9 L (6.3-8.2) g/dL Albumin 2.7 L 2.9 L (3.9-5) g/dL Crossmatch 06/22/16 06/22/16 06/22/16 Range/Units 10:11 10:31 14:49 WBC 18.3 H (4.5-11.0) K/mm3 MCH 27 L (28-32) pg RDW 18.3 H (13.2-15.2) % Plt Count 85 L (140-440) K/mm3 Seg Neuts % (Manual) 88.0 H (40.0-70.0) % Lymphocytes % (Manual) 3.0 L (13.4-35.0) % Nucleated RBC % (0.0-0.9) % Seg Neutrophils # Man 16.1 H (1.8-7.7) K/mm3 Lymphocytes # (Manual) 0.5 L (1.2-5.4) K/mm3 POC ABG pCO2 24.9 L (35-45) POC ABG pO2 70 L (80-105) Sodium (137-145) mmol/L Carbon Dioxide 17 L (22-30) mmol/L BUN 30 H (7-17) mg/dL Creatinine 3.3 H (0.7-1.2) mg/dL Glucose 119 H (65-100) mg/dL Calcium 7.1 L (8.4-10.2) mg/dL AST (5-40) units/L Total Protein (6.3-8.2) g/dL Albumin (3.9-5) g/dL Crossmatch
[2016-06-22] MEDS ORDERED: XANAX PO PRN (18:30)
--- NOTE | 2016-06-22 22:22 | Consultation ---
History of Present Illness - Reason for Consult Consult date: 06/22/16 - History of Present Illness patient seen/examined this am, resting in bed, labs reviewed, case d/w patient, and with primary team, and the renal team. She appears fair. Labs improving. Past History Past Medical History: hypertension Social history: no significant social history, single Family history: no significant family history Medications and Allergies Allergies Allergy/AdvReac Type Severity Reaction Status Date / Time No Known Allergies Allergy Verified 06/12/16 10:38 Home Medications Medication Instructions Recorded Confirmed Last Taken Type Multiple Vitamins For Women 1 tab PO DAILY 06/12/16 06/21/16 06/17/16 History Active Meds: Active Medications Acetaminophen (Tylenol) 650 mg PO Q4H PRN PRN Reason: Fever >100.5/VEGAS Acetaminophen/Hydrocodone Bitart (M[place] 5/325) 1 each PO Q4H PRN PRN Reason: Pain, Moderate (4-6) Last Admin: 06/22/16 17:04 Dose: 1 each Alprazolam (Xanax) 1 mg PO Q8H PRN PRN Reason: Anxiety Last Admin: 06/22/16 19:19 Dose: 1 mg Ferrous Sulfate (Feosol) 325 mg PO QDAY [facility] Last Admin: 06/22/16 09:20 Dose: 325 mg Sodium Chloride (Nacl 0.9% 500 Ml) 500 mls @ 50 mls/hr IV DIRECT ELLA Piperacillin Sod/Tazobactam Sod (Zosyn/Ns 2.25 Gm/50ml) 2.25 gm in 50 mls @ 100 mls/hr IV Q8H ELLA PRN Reason: Protocol Last Admin: 06/22/16 21:21 Dose: 100 mls/hr Sodium Bicarbonate 150 meq/ (Sterile Water) 1,150 mls @ 100 mls/hr IV DIRECT ELLA Last Admin: 06/22/16 11:54 Dose: 100 mls/hr Labetalol HCl (Normodyne) 300 mg PO BID [facility] Last Admin: 06/22/16 21:18 Dose: 300 mg Losartan Potassium (Cozaar) 100 mg PO QDAY [facility] Last Admin: 06/22/16 09:20 Dose: 100 mg Magnesium Hydroxide (Milk Of Magnesia) 30 ml PO QHS PRN PRN Reason: Constip Unrelieved By Senna Morphine Sulfate (Morphine Dairy Helper 30mg/30ml) 0 mg IV DIRECT ELLA PRN Reason: Protocol Last Admin: 06/20/16 21:38 Dose: 5.3 mg Multi-Ingredient Ointment (Lansinoh) 1 applic TP PRN PRN PRN Reason: dryness/cracking Multivitamins (Theragran Tab) 1 each PO DAILY [facility] Last Admin: 06/22/16 09:20 Dose: 1 each Multivitamins/Iron/Calcium ( Vitamin) 1 each PO QDAY [facility] Last Admin: 06/22/16 09:23 Dose: 1 each Naloxone HCl (Narcan 0.4 Mg/1 Ml) 0.1 mg IV Q2MIN PRN PRN Reason: Res Rate </= 8 or 02 SAT < 92% Ondansetron HCl (Zofran) 4 mg IV Q8H PRN PRN Reason: Nausea And Vomiting Oxycodone/Acetaminophen (Percocet 5/325) 2 tab PO Q6H PRN PRN Reason: Pain, Moderate (4-6) Last Admin: 06/22/16 13:57 Dose: 2 tab Senna (Senokot) 17.2 mg PO QHS PRN PRN Reason: Constipation Simethicone (Mylicon) 80 mg PO Q6H PRN PRN Reason: Gas pain Sodium Chloride (Sodium Chloride Flush Syringe 10 Ml) 10 ml IV PRN PRN PRN Reason: flush Witch Gayla/Glycerin (Tucks Pad) 1 each TP PRN PRN PRN Reason: Hemorrhoids/cleansing/soothing Review of Systems Constitutional: fatigue Breasts: deferred Gastrointestinal: abdominal pain Exam - Constitutional Vitals: Temp Pulse Resp BP Pulse Ox 98.7 F 88 17 148/97 98 06/22/16 16:00 06/22/16 18:30 06/22/16 18:30 06/22/16 18:30 06/22/16 20:43 General appearance: Present: mild distress, well-nourished - EENT Eyes: Present: PERRL ENT: hearing intact, clear oral mucosa - Neck Neck: Present: supple, normal ROM - Respiratory Respiratory effort: normal Respiratory: bilateral: CTA - Cardiovascular Heart Sounds: Present: S1 & S2. Absent: rub, click - Extremities Extremities: pulses symmetrical, No edema Peripheral Pulses: within normal limits - Abdominal General gastrointestinal: Present: soft, non-tender, non-distended, normal bowel sounds Female genitourinary: Present: deferred - Integumentary Integumentary: Present: clear, warm, dry - Musculoskeletal Musculoskeletal: gait normal, strength equal bilaterally - Psychiatric Psychiatric: appropriate mood/affect, intact judgment & insight - Neurologic Neurologic: CNII-XII intact, moves all extremities Results - Labs CBC & Chem 7: 06/22/16 10:11 06/22/16 14:49 Labs: Abnormal lab results 06/20/16 06/21/16 06/21/16 Range/Units 05:19 05:09 23:28 WBC 23.1 H (4.5-11.0) K/mm3 MCH 27 L (28-32) pg RDW 17.2 H (13.2-15.2) % Plt Count 61 L (140-440) K/mm3 Seg Neuts % (Manual) 96.0 H (40.0-70.0) % Lymphocytes % (Manual) 1.0 L (13.4-35.0) % Nucleated RBC % (0.0-0.9) % Seg Neutrophils # Man 22.2 H (1.8-7.7) K/mm3 Lymphocytes # (Manual) 0.2 L (1.2-5.4) K/mm3 Antithrombin III Ag 51 L (80-120) % POC ABG pCO2 (35-45) POC ABG pO2 (80-105) Sodium (137-145) mmol/L Carbon Dioxide (22-30) mmol/L BUN (7-17) mg/dL Creatinine (0.7-1.2) mg/dL Glucose (65-100) mg/dL Calcium (8.4-10.2) mg/dL AST (5-40) units/L Total Protein (6.3-8.2) g/dL Albumin (3.9-5) g/dL Crossmatch See Detail 06/21/16 06/21/16 06/21/16 Range/Units 23:28 23:28 23:28 WBC 23.3 H (4.5-11.0) K/mm3 MCH 27 L (28-32) pg RDW 18.7 H (13.2-15.2) % Plt Count 60 L (140-440) K/mm3 Seg Neuts % (Manual) (40.0-70.0) % Lymphocytes % (Manual) 2.0 L (13.4-35.0) % Nucleated RBC % (0.0-0.9) % Seg Neutrophils # Man 22.4 H (1.8-7.7) K/mm3 Lymphocytes # (Manual) 0.5 L (1.2-5.4) K/mm3 Antithrombin III Ag (80-120) % POC ABG pCO2 (35-45) POC ABG pO2 (80-105) Sodium 134 L 135 L (137-145) mmol/L Carbon Dioxide 17 L 17 L (22-30) mmol/L BUN 27 H 27 H (7-17) mg/dL Creatinine 3.6 H 3.5 H (0.7-1.2) mg/dL Glucose 111 H 111 H (65-100) mg/dL Calcium 7.0 L 6.9 L (8.4-10.2) mg/dL AST (5-40) units/L Total Protein (6.3-8.2) g/dL Albumin (3.9-5) g/dL Crossmatch 06/22/16 06/22/16 06/22/16 Range/Units 03:58 03:58 08:30 WBC 19.8 H 18.9 H (4.5-11.0) K/mm3 MCH 27 L 27 L (28-32) pg RDW 17.6 H 18.3 H (13.2-15.2) % Plt Count 69 L 77 L (140-440) K/mm3 Seg Neuts % (Manual) 90.0 H (40.0-70.0) % Lymphocytes % (Manual) 6.0 L (13.4-35.0) % Nucleated RBC % 1.0 H (0.0-0.9) % Seg Neutrophils # Man 17.0 H (1.8-7.7) K/mm3 Lymphocytes # (Manual) 1.1 L (1.2-5.4) K/mm3 Antithrombin III Ag (80-120) % POC ABG pCO2 (35-45) POC ABG pO2 (80-105) Sodium 136 L (137-145) mmol/L Carbon Dioxide 16 L (22-30) mmol/L BUN 28 H (7-17) mg/dL Creatinine 3.9 H (0.7-1.2) mg/dL Glucose 132 H (65-100) mg/dL Calcium 7.1 L (8.4-10.2) mg/dL AST (5-40) units/L Total Protein 5.3 L D (6.3-8.2) g/dL Albumin 2.7 L (3.9-5) g/dL Crossmatch 06/22/16 06/22/16 06/22/16 Range/Units 08:30 10:11 10:31 WBC 18.3 H (4.5-11.0) K/mm3 MCH 27 L (28-32) pg RDW 18.3 H (13.2-15.2) % Plt Count 85 L (140-440) K/mm3 Seg Neuts % (Manual) 88.0 H (40.0-70.0) % Lymphocytes % (Manual) 3.0 L (13.4-35.0) % Nucleated RBC % (0.0-0.9) % Seg Neutrophils # Man 16.1 H (1.8-7.7) K/mm3 Lymphocytes # (Manual) 0.5 L (1.2-5.4) K/mm3 Antithrombin III Ag (80-120) % POC ABG pCO2 24.9 L (35-45) POC ABG pO2 70 L (80-105) Sodium (137-145) mmol/L Carbon Dioxide 18 L (22-30) mmol/L BUN 29 H (7-17) mg/dL Creatinine 3.8 H (0.7-1.2) mg/dL Glucose 134 H (65-100) mg/dL Calcium 7.6 L (8.4-10.2) mg/dL AST 42 H (5-40) units/L Total Protein 5.9 L (6.3-8.2) g/dL Albumin 2.9 L (3.9-5) g/dL Crossmatch 06/22/16 Range/Units 14:49 WBC (4.5-11.0) K/mm3 MCH (28-32) pg RDW (13.2-15.2) % Plt Count (140-440) K/mm3 Seg Neuts % (Manual) (40.0-70.0) % Lymphocytes % (Manual) (13.4-35.0) % Nucleated RBC % (0.0-0.9) % Seg Neutrophils # Man (1.8-7.7) K/mm3 Lymphocytes # (Manual) (1.2-5.4) K/mm3 Antithrombin III Ag (80-120) % POC ABG pCO2 (35-45) POC ABG pO2 (80-105) Sodium (137-145) mmol/L Carbon Dioxide 17 L (22-30) mmol/L BUN 30 H (7-17) mg/dL Creatinine 3.3 H (0.7-1.2) mg/dL Glucose 119 H (65-100) mg/dL Calcium 7.1 L (8.4-10.2) mg/dL AST (5-40) units/L Total Protein (6.3-8.2) g/dL Albumin (3.9-5) g/dL Crossmatch Assessment and Plan - Patient Problems (1) Hyperkalemia Current Visit: Yes Status: Acute Plan to address problem: deffer to the renal service. (2) Intrauterine in Onset Date: 06/19/16 Current Visit: Yes Status: Acute Qualifiers: Fetus number: single or unspecified fetus Qualified Code(s): O36.4XX0 - Maternal care for intrauterine , not applicable or unspecified Plan to address problem: the fetus is already evacuated, continue to tx the underlying issues. (3) CHRISTOPHER (acute kidney injury) Current Visit: Yes Status: Acute Plan to address problem: Follow renal service. (4) DIC (disseminated intravascular coagulation) Current Visit: Yes Status: Acute Plan to address problem: See full w/up, and management. see notes above.
[2016-06-23 05:55] LABS: Hematocrit 31.9 % (30.3-42.9); Hemoglobin 10.7 gm/dl (10.1-14.3); Mean Corpuscular HGB Conc 34 % (30-34); Mean Corpuscular Hemoglobin 27 pg (28-32); Mean Corpuscular Volume 82 fl (79-97); Platelet Count 102 K/mm3 (140-440); White Blood Count 16.4 K/mm3 (4.5-11.0)
[2016-06-23 06:13] LABS: Alanine Aminotransferase < 5 units/L (7-56); Albumin 2.4 g/dL (3.9-5); Alkaline Phosphatase 69 units/L (35-129); Anion Gap 20 mmol/L; BUN/Creatinine Ratio 10.31; Bilirubin,Total < 0.2 mg/dL (0.1-1.2); Blood Urea Nitrogen 33 mg/dL (7-17); Calcium 6.9 mg/dL (8.4-10.2); Carbon Dioxide 23 mmol/L (22-30); Chloride 103.1 mmol/L (98-107); Creatine Kinase 498 units/L (30-135); Glucose 88 mg/dL (65-100); Potassium 3.8 mmol/L (3.6-5.0); Sodium 142 mmol/L (137-145); Total Protein 4.7 g/dL (6.3-8.2)
--- NOTE | 2016-06-23 08:03 | Progress Note ---
Assessment and Plan - Patient Problems (1) 30 weeks gestation of Onset Date: 06/19/16 Current Visit: Yes Status: Resolved (2) Intrauterine in Onset Date: 06/19/16 Current Visit: Yes Status: Resolved Qualifiers: Fetus number: single or unspecified fetus Qualified Code(s): O36.4XX0 - Maternal care for intrauterine , not applicable or unspecified (3) Anuria Onset Date: 06/20/16 Current Visit: Yes Status: Resolved (4) Tachycardia with heart rate 121-140 beats per minute Onset Date: 06/20/16 Current Visit: Yes Status: Resolved (5) CHRISTOPHER (acute kidney injury) Onset Date: 06/23/16 Current Visit: Yes Status: Acute (6) DIC (disseminated intravascular coagulation) Onset Date: 06/23/16 Current Visit: Yes Status: Resolved (7) S/P primary low transverse Onset Date: 06/23/16 Current Visit: Yes Status: Resolved Plan to address problem: A: S/P LTCS - POD #3 Doing well Acute renal failure - improving. Being evaluated by Nephrology DIC - resolved. Being evaluated by Hematology Elevated BP - currently on Labetolol and Losartan P: Continue present management Will transfer to floor today Possible removal of epidural today Advance diet as tolerated Subjective - Subjective Date of service: 06/23/16 Principal diagnosis: s/p LTCS - POD #3; Acute renal failure; DIC; Hypertension Interval history: Pt is feeling well except for incisional pains. She is tolerating a liquid diet without nausea or vomiting, ambulating and voiding without difficulty. Patient reports: appetite normal, voiding normally, pain well controlled, flatus , bowel movement, ambulating normally : Objective - Vital Signs Latest vital signs: Vital Signs Temp Pulse Pulse Resp BP Pulse Ox 06/23/16 07:52 98.6 F 06/23/16 07:47 107 H 98 06/23/16 07:00 96 H 28 H 134/94 96 06/23/16 06:31 100 H 27 H 150/100 95 06/23/16 06:00 98 H 29 H 150/100 96 06/23/16 05:31 91 H 25 H 148/104 99 06/23/16 05:00 99 H 21 148/104 94 06/23/16 04:31 95 H 24 145/96 94 06/23/16 04:00 98.7 F 91 H 26 H 145/96 91 06/23/16 03:30 92 H 27 H 135/95 99 06/23/16 03:00 90 23 135/95 97 06/23/16 02:31 91 H 27 H 133/94 99 06/23/16 02:00 90 22 133/94 96 06/23/16 01:31 101 H 25 H 139/95 93 06/23/16 01:00 102 H 26 H 139/95 94 06/23/16 00:45 98.4 F 06/23/16 00:31 92 H 24 140/98 100 06/23/16 00:00 98.4 F 92 H 24 140/98 96 06/22/16 23:31 93 H 29 H 124/75 99 06/22/16 23:03 118 H 47 H 124/75 06/22/16 22:30 101 H 17 124/75 96 06/22/16 22:00 99 H 32 H 133/96 95 06/22/16 21:31 101 H 38 H 141/99 96 06/22/16 21:00 105 H 30 H 143/103 95 06/22/16 20:43 98 06/22/16 20:30 99 H 27 H 145/101 97 06/22/16 20:01 104 H 24 129/85 95 06/22/16 20:00 100 06/22/16 19:30 94 H 25 H 129/85 97 06/22/16 19:00 92 H 27 H 137/96 96 06/22/16 18:55 96 H 24 148/97 98 06/22/16 18:30 88 17 148/97 96 06/22/16 18:01 92 H 28 H 152/93 96 06/22/16 17:30 103 H 35 H 124/90 97 06/22/16 17:00 98 H 29 H 135/80 95 06/22/16 16:30 100 H 17 139/98 96 06/22/16 16:00 98.2 F 101 H 26 H 135/90 100 06/22/16 15:30 99 H 30 H 136/99 95 06/22/16 15:00 100 H 16 121/86 99 06/22/16 14:30 108 H 28 H 119/75 94 06/22/16 14:00 102 H 24 140/92 96 06/22/16 13:30 114 H 21 128/84 92 06/22/16 13:01 114 H 37 H 129/82 93 06/22/16 12:30 102 H 27 H 129/82 95 06/22/16 12:00 98.5 F 107 H 34 H 123/83 100 06/22/16 11:31 103 H 28 H 123/81 96 06/22/16 11:00 108 H 39 H 121/83 96 06/22/16 10:30 105 H 25 H 139/92 94 06/22/16 10:00 104 H 29 H 149/98 95 06/22/16 09:30 102 H 30 H 135/95 95 06/22/16 09:20 109 H 128/89 06/22/16 09:19 111 H 128/89 06/22/16 09:00 111 H 25 H 128/89 90 06/22/16 08:30 114 H 33 H 132/93 91 Intake and Output 06/22/16 06/23/16 06/23/16 22:59 06:59 14:59 Output Total 400 Balance -400 Output: Urine 400 Indwelling Catheter 400 Other: Total, Output Amount 400 Voiding Method Bedpan Toilet - Exam Breasts: Present: deferred Cardiovascular: Present: Regular rate Lungs: Present: Clear to auscultation Abdomen: Present: normal appearance, soft Uterus: Present: normal, firm, fundal height below umbilicus Extremities: Present: normal Incision: Present: normal, dry, intact - Labs Labs: Abnormal lab results 06/21/16 06/22/16 06/22/16 Range/Units 05:09 08:30 08:30 WBC 18.9 H (4.5-11.0) K/mm3 MCH 27 L (28-32) pg RDW 18.3 H (13.2-15.2) % Plt Count 77 L (140-440) K/mm3 Seg Neuts % (Manual) 90.0 H (40.0-70.0) % Lymphocytes % (Manual) 6.0 L (13.4-35.0) % Nucleated RBC % 1.0 H (0.0-0.9) % Seg Neutrophils # Man 17.0 H (1.8-7.7) K/mm3 Lymphocytes # (Manual) 1.1 L (1.2-5.4) K/mm3 Antithrombin III Ag 51 L (80-120) % POC ABG pCO2 (35-45) POC ABG pO2 (80-105) Carbon Dioxide 18 L (22-30) mmol/L BUN 29 H (7-17) mg/dL Creatinine 3.8 H (0.7-1.2) mg/dL Glucose 134 H (65-100) mg/dL Calcium 7.6 L (8.4-10.2) mg/dL AST 42 H (5-40) units/L ALT (7-56) units/L Total Creatine Kinase (30-135) units/L Total Protein 5.9 L (6.3-8.2) g/dL Albumin 2.9 L (3.9-5) g/dL 06/22/16 06/22/16 06/22/16 Range/Units 10:11 10:31 14:49 WBC 18.3 H (4.5-11.0) K/mm3 MCH 27 L (28-32) pg RDW 18.3 H (13.2-15.2) % Plt Count 85 L (140-440) K/mm3 Seg Neuts % (Manual) 88.0 H (40.0-70.0) % Lymphocytes % (Manual) 3.0 L (13.4-35.0) % Nucleated RBC % (0.0-0.9) % Seg Neutrophils # Man 16.1 H (1.8-7.7) K/mm3 Lymphocytes # (Manual) 0.5 L (1.2-5.4) K/mm3 Antithrombin III Ag (80-120) % POC ABG pCO2 24.9 L (35-45) POC ABG pO2 70 L (80-105) Carbon Dioxide 17 L (22-30) mmol/L BUN 30 H (7-17) mg/dL Creatinine 3.3 H (0.7-1.2) mg/dL Glucose 119 H (65-100) mg/dL Calcium 7.1 L (8.4-10.2) mg/dL AST (5-40) units/L ALT (7-56) units/L Total Creatine Kinase (30-135) units/L Total Protein (6.3-8.2) g/dL Albumin (3.9-5) g/dL 06/23/16 06/23/16 Range/Units 05:05 05:05 WBC 16.4 H (4.5-11.0) K/mm3 MCH 27 L (28-32) pg RDW 18.0 H (13.2-15.2) % Plt Count 102 L (140-440) K/mm3 Seg Neuts % (Manual) (40.0-70.0) % Lymphocytes % (Manual) (13.4-35.0) % Nucleated RBC % (0.0-0.9) % Seg Neutrophils # Man (1.8-7.7) K/mm3 Lymphocytes # (Manual) (1.2-5.4) K/mm3 Antithrombin III Ag (80-120) % POC ABG pCO2 (35-45) POC ABG pO2 (80-105) Carbon Dioxide (22-30) mmol/L BUN 33 H (7-17) mg/dL Creatinine 3.2 H (0.7-1.2) mg/dL Glucose (65-100) mg/dL Calcium 6.9 L (8.4-10.2) mg/dL AST (5-40) units/L ALT < 5 L (7-56) units/L Total Creatine Kinase 498 H (30-135) units/L Total Protein 4.7 L D (6.3-8.2) g/dL Albumin 2.4 L (3.9-5) g/dL Laboratory Results - last 24 hr 06/21/16 06/22/16 06/22/16 05:09 08:30 08:30 WBC 18.9 H RBC 4.59 Hgb 12.4 Hct 37.1 MCV 81 MCH 27 L MCHC 33 RDW 18.3 H Plt Count 77 L Add Manual Diff Complete Total Counted 100 Seg Neutrophils % Manager [employer] Seg Neuts % (Manual) 90.0 H Band Neutrophils % 1.0 Lymphocytes % (Manual) 6.0 L Reactive Lymphs % (Man) 0 Monocytes % (Manual) 3.0 Eosinophils % (Manual) 0 Basophils % (Manual) 0 Metamyelocytes % 0 Myelocytes % 0 Promyelocytes % 0 Blast Cells % 0 Nucleated RBC % 1.0 H Seg Neutrophils # Man 17.0 H Band Neutrophils # 0.2 Lymphocytes # (Manual) 1.1 L Abs React Lymphs (Man) 0.0 Monocytes # (Manual) 0.6 Eosinophils # (Manual) 0.0 Basophils # (Manual) 0.0 Metamyelocytes # 0.0 Myelocytes # 0.0 Promyelocytes # 0.0 Blast Cells # 0.0 WBC Morphology Not Reportable Hypersegmented Neuts Not Reportable Hyposegmented Neuts Not Reportable Hypogranular Neuts Not Reportable Smudge Cells Not Reportable Toxic Granulation Not Reportable Toxic Vacuolation Not Reportable Dohle Bodies Not Reportable Pelger-Huet Anomaly Not Reportable Rj Rods Not Reportable Platelet Estimate Cons Clumped Platelets Not Reportable Plt Clumps, EDTA Not Reportable Large Platelets Few Giant Platelets Not Reportable Platelet Satelliting Not Reportable Plt Morphology Comment Not Reportable RBC Morphology Not Reportable Dimorphic RBCs Not Reportable Polychromasia Few Hypochromasia Not Reportable Poikilocytosis Not Reportable Anisocytosis 1+ Microcytosis Not Reportable Macrocytosis Not Reportable Spherocytes Not Reportable Pappenheimer Bodies Not Reportable Sickle Cells Not Reportable Target Cells Not Reportable Tear Drop Cells Not Reportable Ovalocytes Not Reportable Helmet Cells Not Reportable [place] Bodies Not Reportable [place] Rings Not Reportable [place] Cells Not Reportable Bite Cells Not Reportable Crenated Cell Not Reportable Elliptocytes Not Reportable Acanthocytes (Spur) Not Reportable Rouleaux Not Reportable Hemoglobin C Crystals Not Reportable Schistocytes Not Reportable Malaria parasites Not Reportable Praneeth Bodies Not Reportable Hem Pathologist Commnt No Antithrombin III Ag 51 L POC ABG pH POC ABG pCO2 POC ABG pO2 POC ABG HCO3 POC ABG Total CO2 POC ABG O2 Sat POC ABG Base Excess FiO2 Sodium 138 Potassium 4.3 Chloride 100.4 Carbon Dioxide 18 L Anion Gap 24 BUN 29 H Creatinine 3.8 H Estimated GFR 15 BUN/Creatinine Ratio 7.63 Glucose 134 H Calcium 7.6 L Total Bilirubin 0.3 AST 42 H ALT 9 Alkaline Phosphatase 89 Total Creatine Kinase Total Protein 5.9 L Albumin 2.9 L Albumin/Globulin Ratio 1.0 06/22/16 06/22/16 06/22/16 10:11 10:31 14:49 WBC 18.3 H RBC 4.38 Hgb 11.8 Hct 35.5 MCV 81 MCH 27 L MCHC 33 RDW 18.3 H Plt Count 85 L Add Manual Diff Complete Total Counted 100 Seg Neutrophils % Seg Neuts % (Manual) 88.0 H Band Neutrophils % 5.0 Lymphocytes % (Manual) 3.0 L Reactive Lymphs % (Man) 0 Monocytes % (Manual) 3.0 Eosinophils % (Manual) 0 Basophils % (Manual) 0 Metamyelocytes % 0 Myelocytes % 1.0 Promyelocytes % 0 Blast Cells % 0 Nucleated RBC % Not Reportable Seg Neutrophils # Man 16.1 H Band Neutrophils # 0.9 Lymphocytes # (Manual) 0.5 L Abs React Lymphs (Man) 0.0 Monocytes # (Manual) 0.5 Eosinophils # (Manual) 0.0 Basophils # (Manual) 0.0 Metamyelocytes # 0.0 Myelocytes # 0.2 Promyelocytes # 0.0 Blast Cells # 0.0 WBC Morphology Not Reportable Hypersegmented Neuts Not Reportable Hyposegmented Neuts Not Reportable Hypogranular Neuts Not Reportable Smudge Cells Not Reportable Toxic Granulation Not Reportable Toxic Vacuolation Not Reportable Dohle Bodies Not Reportable Pelger-Huet Anomaly Not Reportable Rj Rods Not Reportable Platelet Estimate Appears decreased Clumped Platelets Not Reportable Plt Clumps, EDTA Not Reportable Large Platelets Few Giant Platelets Not Reportable Platelet Satelliting Not Reportable Plt Morphology Comment Not Reportable RBC Morphology Not Reportable Dimorphic RBCs Not Reportable Polychromasia Few Hypochromasia Not Reportable Poikilocytosis Not Reportable Anisocytosis Few Microcytosis Not Reportable Macrocytosis Not Reportable Spherocytes Not Reportable Pappenheimer Bodies Not Reportable Sickle Cells Not Reportable Target Cells Not Reportable Tear Drop Cells Not Reportable Ovalocytes Few Helmet Cells Not Reportable [place] Bodies Not Reportable [place] Rings Not Reportable [place] Cells Not Reportable Bite Cells Not Reportable Crenated Cell Not Reportable Elliptocytes Not Reportable Acanthocytes (Spur) Not Reportable Rouleaux Not Reportable Hemoglobin C Crystals Not Reportable Schistocytes Not Reportable Malaria parasites Not Reportable Praneeth Bodies Not Reportable Hem Pathologist Commnt No Antithrombin III Ag POC ABG pH 7.437 POC ABG pCO2 24.9 L POC ABG pO2 70 L POC ABG HCO3 16.8 POC ABG Total CO2 18 POC ABG O2 Sat 95 POC ABG Base Excess -7 FiO2 32 Sodium 138 Potassium 4.2 Chloride 100.0 Carbon Dioxide 17 L Anion Gap 25 BUN 30 H Creatinine 3.3 H Estimated GFR 17 BUN/Creatinine Ratio 9.09 Glucose 119 H Calcium 7.1 L Total Bilirubin AST ALT Alkaline Phosphatase Total Creatine Kinase Total Protein Albumin Albumin/Globulin Ratio 06/23/16 06/23/16 05:05 05:05 WBC 16.4 H RBC 3.90 Hgb 10.7 Hct 31.9 MCV 82 MCH 27 L MCHC 34 RDW 18.0 H Plt Count 102 L Add Manual Diff Total Counted Seg Neutrophils % Seg Neuts % (Manual) Band Neutrophils % Lymphocytes % (Manual) Reactive Lymphs % (Man) Monocytes % (Manual) Eosinophils % (Manual) Basophils % (Manual) Metamyelocytes % Myelocytes % Promyelocytes % Blast Cells % Nucleated RBC % Seg Neutrophils # Man Band Neutrophils # Lymphocytes # (Manual) Abs React Lymphs (Man) Monocytes # (Manual) Eosinophils # (Manual) Basophils # (Manual) Metamyelocytes # Myelocytes # Promyelocytes # Blast Cells # WBC Morphology Hypersegmented Neuts Hyposegmented Neuts Hypogranular Neuts Smudge Cells Toxic Granulation Toxic Vacuolation Dohle Bodies Pelger-Huet Anomaly Rj Rods Platelet Estimate Clumped Platelets Plt Clumps, EDTA Large Platelets Giant Platelets Platelet Satelliting Plt Morphology Comment RBC Morphology Dimorphic RBCs Polychromasia Hypochromasia Poikilocytosis Anisocytosis Microcytosis Macrocytosis Spherocytes Pappenheimer Bodies Sickle Cells Target Cells Tear Drop Cells Ovalocytes Helmet Cells [place] Bodies [place] Rings Ludivina Cells Bite Cells Crenated Cell Elliptocytes Acanthocytes (Spur) Rouleaux Hemoglobin C Crystals Schistocytes Malaria parasites Praneeth Bodies Hem Pathologist Commnt Antithrombin III Ag POC ABG pH POC ABG pCO2 POC ABG pO2 POC ABG HCO3 POC ABG Total CO2 POC ABG O2 Sat POC ABG Base Excess FiO2 Sodium 142 Potassium 3.8 Chloride 103.1 Carbon Dioxide 23 Anion Gap 20 BUN 33 H Creatinine 3.2 H Estimated GFR 18 BUN/Creatinine Ratio 10.31 Glucose 88 Calcium 6.9 L Total Bilirubin < 0.2 AST 24 ALT < 5 L Alkaline Phosphatase 69 Total Creatine Kinase 498 H Total Protein 4.7 L D Albumin 2.4 L Albumin/Globulin Ratio 1.0
--- NOTE | 2016-06-23 08:06 | Progress Note ---
Assessment and Plan - Patient Problems (1) CHRISTOPHER (acute kidney injury) Onset Date: 06/23/16 Current Visit: Yes Status: Acute Plan to address problem: Acute kidney Injury in the setting of hypotension, severe anemia, placental abruption and DIC. BP is better. Patient is on-oliguric. Creatinine is improving. Decrease IV fluids. (2) Hyperkalemia Current Visit: Yes Status: Acute Plan to address problem: Improved. Monitor K level. (3) Metabolic acidosis Current Visit: Yes Status: Acute Plan to address problem: Improved. (4) Intrauterine in Onset Date: 06/19/16 Current Visit: Yes Status: Resolved Qualifiers: Fetus number: single or unspecified fetus Qualified Code(s): O36.4XX0 - Maternal care for intrauterine , not applicable or unspecified (5) DIC (disseminated intravascular coagulation) Onset Date: 06/23/16 Current Visit: Yes Status: Resolved Plan to address problem: Followed by Heme-Onc. Subjective Date of service: 06/23/16 Principal diagnosis: s/p LTCS - POD #3; Acute renal failure; DIC; Hypertension Interval history: Patient is feeling better overall. Some shortness of breath on lying down. Objective - Vital Signs Vital signs: Vital Signs - 12hr 06/22/16 06/22/16 06/22/16 20:30 20:43 21:00 Temperature Pulse Rate 99 H 105 H Pulse Rate [ From Monitor] Respiratory 27 H 30 H Rate Blood Pressure 145/101 143/103 O2 Sat by Pulse 97 98 95 Oximetry 06/22/16 06/22/16 06/22/16 21:31 22:00 22:30 Temperature Pulse Rate 101 H 99 H 101 H Pulse Rate [ From Monitor] Respiratory 38 H 32 H 17 Rate Blood Pressure 141/99 133/96 124/75 O2 Sat by Pulse 96 95 96 Oximetry 06/22/16 06/22/16 06/23/16 23:03 23:31 00:00 Temperature 98.4 F Pulse Rate 118 H 93 H 92 H Pulse Rate [ From Monitor] Respiratory 47 H 29 H 24 Rate Blood Pressure 124/75 124/75 140/98 O2 Sat by Pulse 99 96 Oximetry 06/23/16 06/23/16 06/23/16 00:31 00:45 01:00 Temperature 98.4 F Pulse Rate 92 H 102 H Pulse Rate [ From Monitor] Respiratory 24 26 H Rate Blood Pressure 140/98 139/95 O2 Sat by Pulse 100 94 Oximetry 06/23/16 06/23/16 06/23/16 01:31 02:00 02:31 Temperature Pulse Rate 101 H 90 91 H Pulse Rate [ From Monitor] Respiratory 25 H 22 27 H Rate Blood Pressure 139/95 133/94 133/94 O2 Sat by Pulse 93 96 99 Oximetry 06/23/16 06/23/16 06/23/16 03:00 03:30 04:00 Temperature 98.7 F Pulse Rate 90 92 H 91 H Pulse Rate [ From Monitor] Respiratory 23 27 H 26 H Rate Blood Pressure 135/95 135/95 145/96 O2 Sat by Pulse 97 99 91 Oximetry 06/23/16 06/23/16 06/23/16 04:31 05:00 05:31 Temperature Pulse Rate 95 H 99 H 91 H Pulse Rate [ From Monitor] Respiratory 24 21 25 H Rate Blood Pressure 145/96 148/104 148/104 O2 Sat by Pulse 94 94 99 Oximetry 06/23/16 06/23/16 06/23/16 06:00 06:31 07:00 Temperature Pulse Rate 98 H 100 H 96 H Pulse Rate [ From Monitor] Respiratory 29 H 27 H 28 H Rate Blood Pressure 150/100 150/100 134/94 O2 Sat by Pulse 96 95 96 Oximetry 06/23/16 06/23/16 07:47 07:52 Temperature 98.6 F Pulse Rate Pulse Rate [ 107 H From Monitor] Respiratory Rate Blood Pressure O2 Sat by Pulse 98 Oximetry - General Appearance General appearance: well-developed, well-nourished, other (no distress) EENT: PERRL, mucous membranes moist, hearing intact, vision intact Neck: no carotid bruit, supple Respiratory: Present: Clear to Ascultation Cardiology: regular, S1S2, no murmurs Gastrointestinal: normoactive bowel sounds Integumentary: no rash, warm and dry Neurologic: no focal deficit, no asterixis, alert and oriented x3, CN 3-12 intact Musculoskeletal: other (trace pedal edema of both LEs) Psychiatric: mood/affect appropriate, cooperative - Lab 06/23/16 05:05 06/23/16 05:05 Most recent lab results Calcium 6.9 mg/dL (8.4-10.2) L 06/23/16 05:05 Urine Creatinine 63.7 mg/dL (0.1-20.0) H 06/21/16 05:30 Urine Sodium 56 mEq/L 06/21/16 05:30
[2016-06-23] MEDS: PERCOCET 5/325 PO PRN ×3 (09:04→21:40)
[2016-06-23] MEDS: PRENATAL VITAMIN PO SCH (09:05)
[2016-06-23] MEDS: THERAGRAN Tab PO SCH (09:05)
[2016-06-23] MEDS: COZAAR PO SCH (09:05)
[2016-06-23] MEDS: FEOSOL PO SCH (09:05)
[2016-06-23] MEDS: NORMODYNE PO SCH ×2 (09:07→23:09)
[2016-06-23] MEDS: XANAX PO PRN ×2 (10:38→17:50)
--- NOTE | 2016-06-23 10:38 | Progress Note ---
Subjective Date of service: 06/23/16 Principal diagnosis: s/p LTCS - POD #3; Acute renal failure; DIC; Hypertension Interval history: 4th POD after for IUFD, acute kidney injury, possible HELLP syndrome Patient is still in ICU, active. No significant pain. Platelets count from today is 102,000. Epidural catheter was removed intact. No site bleeding. No anesthesia complications. Signing off the service Objective - Constitutional Vitals: Vital Signs - 12hr 06/22/16 06/22/16 06/23/16 23:03 23:31 00:00 Temperature 98.4 F Pulse Rate 118 H 93 H 92 H Pulse Rate [ From Monitor] Respiratory 47 H 29 H 24 Rate Blood Pressure 124/75 124/75 140/98 O2 Sat by Pulse 99 96 Oximetry 06/23/16 06/23/16 06/23/16 00:31 00:45 01:00 Temperature 98.4 F Pulse Rate 92 H 102 H Pulse Rate [ From Monitor] Respiratory 24 26 H Rate Blood Pressure 140/98 139/95 O2 Sat by Pulse 100 94 Oximetry 06/23/16 06/23/16 06/23/16 01:31 02:00 02:31 Temperature Pulse Rate 101 H 90 91 H Pulse Rate [ From Monitor] Respiratory 25 H 22 27 H Rate Blood Pressure 139/95 133/94 133/94 O2 Sat by Pulse 93 96 99 Oximetry 06/23/16 06/23/16 06/23/16 03:00 03:30 04:00 Temperature 98.7 F Pulse Rate 90 92 H 91 H Pulse Rate [ From Monitor] Respiratory 23 27 H 26 H Rate Blood Pressure 135/95 135/95 145/96 O2 Sat by Pulse 97 99 91 Oximetry 06/23/16 06/23/16 06/23/16 04:31 05:00 05:31 Temperature Pulse Rate 95 H 99 H 91 H Pulse Rate [ From Monitor] Respiratory 24 21 25 H Rate Blood Pressure 145/96 148/104 148/104 O2 Sat by Pulse 94 94 99 Oximetry 06/23/16 06/23/16 06/23/16 06:00 06:31 07:00 Temperature Pulse Rate 98 H 100 H 96 H Pulse Rate [ From Monitor] Respiratory 29 H 27 H 28 H Rate Blood Pressure 150/100 150/100 134/94 O2 Sat by Pulse 96 95 96 Oximetry 06/23/16 06/23/16 06/23/16 07:31 07:47 07:52 Temperature 98.6 F Pulse Rate 96 H Pulse Rate [ 107 H From Monitor] Respiratory 33 H Rate Blood Pressure 134/94 O2 Sat by Pulse 97 98 Oximetry 06/23/16 06/23/16 06/23/16 08:00 08:31 09:05 Temperature Pulse Rate 95 H 96 H 96 H Pulse Rate [ From Monitor] Respiratory 28 H 29 H Rate Blood Pressure 147/102 147/102 137/107 O2 Sat by Pulse 96 97 Oximetry 06/23/16 09:07 Temperature Pulse Rate 96 H Pulse Rate [ From Monitor] Respiratory Rate Blood Pressure 137/107 O2 Sat by Pulse Oximetry - Labs CBC & Chem 7: 06/23/16 05:05 06/23/16 05:05 Labs: Abnormal lab results 06/21/16 06/22/16 06/22/16 Range/Units 05:09 10:11 10:31 WBC 18.3 H (4.5-11.0) K/mm3 MCH 27 L (28-32) pg RDW 18.3 H (13.2-15.2) % Plt Count 85 L (140-440) K/mm3 Seg Neuts % (Manual) 88.0 H (40.0-70.0) % Lymphocytes % (Manual) 3.0 L (13.4-35.0) % Seg Neutrophils # Man 16.1 H (1.8-7.7) K/mm3 Lymphocytes # (Manual) 0.5 L (1.2-5.4) K/mm3 Antithrombin III Ag 51 L (80-120) % POC ABG pCO2 24.9 L (35-45) POC ABG pO2 70 L (80-105) Carbon Dioxide (22-30) mmol/L BUN (7-17) mg/dL Creatinine (0.7-1.2) mg/dL Glucose (65-100) mg/dL Calcium (8.4-10.2) mg/dL ALT (7-56) units/L Total Creatine Kinase (30-135) units/L Total Protein (6.3-8.2) g/dL Albumin (3.9-5) g/dL 06/22/16 06/23/16 06/23/16 Range/Units 14:49 05:05 05:05 WBC 16.4 H (4.5-11.0) K/mm3 MCH 27 L (28-32) pg RDW 18.0 H (13.2-15.2) % Plt Count 102 L (140-440) K/mm3 Seg Neuts % (Manual) (40.0-70.0) % Lymphocytes % (Manual) (13.4-35.0) % Seg Neutrophils # Man (1.8-7.7) K/mm3 Lymphocytes # (Manual) (1.2-5.4) K/mm3 Antithrombin III Ag (80-120) % POC ABG pCO2 (35-45) POC ABG pO2 (80-105) Carbon Dioxide 17 L (22-30) mmol/L BUN 30 H 33 H (7-17) mg/dL Creatinine 3.3 H 3.2 H (0.7-1.2) mg/dL Glucose 119 H (65-100) mg/dL Calcium 7.1 L 6.9 L (8.4-10.2) mg/dL ALT < 5 L (7-56) units/L Total Creatine Kinase 498 H (30-135) units/L Total Protein 4.7 L D (6.3-8.2) g/dL Albumin 2.4 L (3.9-5) g/dL
--- NOTE | 2016-06-23 11:22 | Event Note ---
Date: 06/23/16 Patient previously discussed with Dr. larson per attending and admitted to ICU then. Will defer
[2016-06-23] MEDS: SODIUM BICARBONATE 150 MEQ in STERILE WATER 1,000 ML IV SCH (11:58)
[2016-06-23] MEDS: ZOSYN/NS 2.25 GM/50ML 2.25 GM/50 ML BAG IV SCH ×3 (12:17→18:53)
--- NOTE | 2016-06-23 19:37 | Progress Note ---
Assessment and Plan 1. DIC: From placenta abruption. Improving with normalizing Fibrinogen level . 2. Acute Renal failure: Improving. Creatinine level decreasing 3. Hypokalemia: Corrected. Check lytes 4. Metabolic acidosis: Resolved 5. Intrauterine secondary to abruption placenta 6. Pancytopenia secondary to DIC. Holding anticoagulation Subjective Date of service: 06/23/16 Principal diagnosis: s/p LTCS - POD #3; Acute renal failure; DIC; Hypertension Interval history: No new complaint. Alert and interactive. Sitting out of bed Objective - Constitutional Vitals: Vital Signs - 12hr 06/23/16 06/23/16 06/23/16 07:47 07:52 08:00 Temperature 98.6 F Pulse Rate 95 H Pulse Rate [ 107 H From Monitor] Pulse Rate [ Left Radial] Respiratory 28 H Rate Blood Pressure 147/102 Blood Pressure [Left Arm] O2 Sat by Pulse 98 96 Oximetry 06/23/16 06/23/16 06/23/16 08:31 09:00 09:05 Temperature Pulse Rate 96 H 103 H 96 H Pulse Rate [ From Monitor] Pulse Rate [ Left Radial] Respiratory 29 H 28 H Rate Blood Pressure 147/102 137/107 137/107 Blood Pressure [Left Arm] O2 Sat by Pulse 97 97 Oximetry 06/23/16 06/23/16 06/23/16 09:07 10:19 10:31 Temperature Pulse Rate 96 H 101 H Pulse Rate [ From Monitor] Pulse Rate [ Left Radial] Respiratory 29 H Rate Blood Pressure 137/107 137/107 137/107 Blood Pressure [Left Arm] O2 Sat by Pulse 93 Oximetry 06/23/16 06/23/16 06/23/16 11:00 11:33 12:00 Temperature 98.7 F Pulse Rate 99 H 107 H 105 H Pulse Rate [ 103 H From Monitor] Pulse Rate [ Left Radial] Respiratory 23 22 28 H Rate Blood Pressure 126/87 126/87 138/96 Blood Pressure [Left Arm] O2 Sat by Pulse 89 88 88 Oximetry 06/23/16 06/23/16 06/23/16 12:31 13:00 13:31 Temperature Pulse Rate 103 H 101 H 102 H Pulse Rate [ From Monitor] Pulse Rate [ Left Radial] Respiratory 29 H 30 H 24 Rate Blood Pressure 138/96 122/87 122/87 Blood Pressure [Left Arm] O2 Sat by Pulse 91 92 94 Oximetry 06/23/16 06/23/16 14:00 16:00 Temperature 98.6 F Pulse Rate 103 H Pulse Rate [ From Monitor] Pulse Rate [ 99 H Left Radial] Respiratory 27 H 18 Rate Blood Pressure 135/97 Blood Pressure 133/95 [Left Arm] O2 Sat by Pulse 90 99 Oximetry General appearance: Present: well-nourished - EENT Eyes: PERRL, EOM intact ENT: hearing intact, clear oral mucosa Ears: bilateral: normal - Neck Neck: supple, normal ROM - Respiratory Respiratory effort: normal Respiratory: bilateral: diminished - Cardiovascular Rhythm: regular Heart Sounds: Present: S1 & S2. Absent: gallop, rub Extremities: pulses intact, No edema, normal color, Full ROM - Gastrointestinal General gastrointestinal: Present: soft, non-tender, non-distended, normal bowel sounds - Genitourinary Female genitourinary: normal - Integumentary Integumentary: clear, warm, dry - Musculoskeletal Musculoskeletal: 1, strength equal bilaterally - Neurologic Neurologic: moves all extremities - Psychiatric Psychiatric: memory intact, appropriate mood/affect, intact judgment & insight - Labs CBC & Chem 7: 06/23/16 05:05 06/23/16 05:05 Labs: Abnormal lab results 06/23/16 06/23/16 Range/Units 05:05 05:05 WBC 16.4 H (4.5-11.0) K/mm3 MCH 27 L (28-32) pg RDW 18.0 H (13.2-15.2) % Plt Count 102 L (140-440) K/mm3 BUN 33 H (7-17) mg/dL Creatinine 3.2 H (0.7-1.2) mg/dL Calcium 6.9 L (8.4-10.2) mg/dL ALT < 5 L (7-56) units/L Total Creatine Kinase 498 H (30-135) units/L Total Protein 4.7 L D (6.3-8.2) g/dL Albumin 2.4 L (3.9-5) g/dL
[2016-06-23] MEDS ORDERED: PROVENTIL IH ONE (21:14)
--- NOTE | 2016-06-23 21:30 | Consultation ---
History of Present Illness - Reason for Consult Consult date: 06/23/16 - History of Present Illness Patient seen/examined in the ICU today, am, labs reviewed, case d/w patient. he is looking much better, and have no new issues at that time. She is scheduled to be transfered out of the ICU to the floor. Past History Past Medical History: hypertension Social history: no significant social history, single Family history: no significant family history Medications and Allergies Allergies Allergy/AdvReac Type Severity Reaction Status Date / Time No Known Allergies Allergy Verified 06/12/16 10:38 Home Medications Medication Instructions Recorded Confirmed Last Taken Type Multiple Vitamins For Women 1 tab PO DAILY 06/12/16 06/21/16 06/17/16 History Active Meds: Active Medications Acetaminophen (Tylenol) 650 mg PO Q4H PRN PRN Reason: Fever >100.5/VEGAS Acetaminophen/Hydrocodone Bitart ([place] 5/325) 1 each PO Q4H PRN PRN Reason: Pain, Moderate (4-6) Last Admin: 06/22/16 17:04 Dose: 1 each Alprazolam (Xanax) 0.5 mg PO Q8H PRN PRN Reason: Anxiety Last Admin: 06/23/16 17:50 Dose: 0.5 mg Ferrous Sulfate (Feosol) 325 mg PO QDAY [facility] Last Admin: 06/23/16 09:05 Dose: 325 mg Sodium Chloride (Nacl 0.9% 500 Ml) 500 mls @ 50 mls/hr IV DIRECT ELLA Sodium Bicarbonate 150 meq/ (Sterile Water) 1,150 mls @ 100 mls/hr IV DIRECT ELLA Last Admin: 06/23/16 11:58 Dose: 100 mls/hr Piperacillin Sod/Tazobactam Sod (Zosyn/Ns 2.25 Gm/50ml) 2.25 gm in 50 mls @ 100 mls/hr IV Q6HR ELLA PRN Reason: Protocol Last Admin: 06/23/16 18:53 Dose: 100 mls/hr Labetalol HCl (Normodyne) 300 mg PO BID [facility] Last Admin: 06/23/16 09:07 Dose: 300 mg Losartan Potassium (Cozaar) 100 mg PO QDAY [facility] Last Admin: 06/23/16 09:05 Dose: 100 mg Magnesium Hydroxide (Milk Of Magnesia) 30 ml PO QHS PRN PRN Reason: Constip Unrelieved By Senna Morphine Sulfate (Morphine Perlite Grinder 30mg/30ml) 0 mg IV DIRECT ELLA PRN Reason: Protocol Last Admin: 06/20/16 21:38 Dose: 5.3 mg Multi-Ingredient Ointment (Lansinoh) 1 applic TP PRN PRN PRN Reason: dryness/cracking Multivitamins (Theragran Tab) 1 each PO DAILY [facility] Last Admin: 06/23/16 09:05 Dose: 1 each Multivitamins/Iron/Calcium ( Vitamin) 1 each PO QDAY [facility] Last Admin: 06/23/16 09:05 Dose: 1 each Naloxone HCl (Narcan 0.4 Mg/1 Ml) 0.1 mg IV Q2MIN PRN PRN Reason: Res Rate </= 8 or 02 SAT < 92% Ondansetron HCl (Zofran) 4 mg IV Q8H PRN PRN Reason: Nausea And Vomiting Oxycodone/Acetaminophen (Percocet 5/325) 2 tab PO Q6H PRN PRN Reason: Pain, Moderate (4-6) Last Admin: 06/23/16 16:07 Dose: 2 tab Senna (Senokot) 17.2 mg PO QHS PRN PRN Reason: Constipation Simethicone (Mylicon) 80 mg PO Q6H PRN PRN Reason: Gas pain Sodium Chloride (Sodium Chloride Flush Syringe 10 Ml) 10 ml IV PRN PRN PRN Reason: flush Witch Gayla/Glycerin (Tucks Pad) 1 each TP PRN PRN PRN Reason: Hemorrhoids/cleansing/soothing Review of Systems Constitutional: fatigue Breasts: deferred Gastrointestinal: abdominal pain Exam - Constitutional Vitals: Temp Pulse Resp BP Pulse Ox 98.6 F 99 H 18 133/95 99 06/23/16 16:00 06/23/16 16:00 06/23/16 16:00 06/23/16 16:00 06/23/16 16:00 General appearance: Present: mild distress, well-nourished - EENT Eyes: Present: PERRL ENT: hearing intact, clear oral mucosa - Neck Neck: Present: supple, normal ROM - Respiratory Respiratory effort: normal Respiratory: bilateral: CTA - Cardiovascular Heart Sounds: Present: S1 & S2. Absent: rub, click - Extremities Extremities: pulses symmetrical, No edema Peripheral Pulses: within normal limits - Abdominal General gastrointestinal: Present: soft, non-tender, non-distended, normal bowel sounds Female genitourinary: Present: deferred - Rectal Rectal Exam: deferred - Integumentary Integumentary: Present: clear, warm, dry - Musculoskeletal Musculoskeletal: gait normal, strength equal bilaterally - Psychiatric Psychiatric: appropriate mood/affect, intact judgment & insight - Neurologic Neurologic: CNII-XII intact, moves all extremities Results - Labs CBC & Chem 7: 06/23/16 05:05 06/23/16 05:05 Labs: Abnormal lab results 06/23/16 06/23/16 Range/Units 05:05 05:05 WBC 16.4 H (4.5-11.0) K/mm3 MCH 27 L (28-32) pg RDW 18.0 H (13.2-15.2) % Plt Count 102 L (140-440) K/mm3 BUN 33 H (7-17) mg/dL Creatinine 3.2 H (0.7-1.2) mg/dL Calcium 6.9 L (8.4-10.2) mg/dL ALT < 5 L (7-56) units/L Total Creatine Kinase 498 H (30-135) units/L Total Protein 4.7 L D (6.3-8.2) g/dL Albumin 2.4 L (3.9-5) g/dL Assessment and Plan - Patient Problems (1) Hyperkalemia Current Visit: Yes Status: Acute Plan to address problem: deffer to the renal service. (2) Intrauterine in Onset Date: 06/19/16 Current Visit: Yes Status: Resolved Qualifiers: Fetus number: single or unspecified fetus Qualified Code(s): O36.4XX0 - Maternal care for intrauterine , not applicable or unspecified Plan to address problem: the fetus is already evacuated, continue to tx the underlying issues. Much improved. (3) CHRISTOPHER (acute kidney injury) Onset Date: 06/23/16 Current Visit: Yes Status: Acute Plan to address problem: Follow renal service. (4) DIC (disseminated intravascular coagulation) Onset Date: 06/23/16 Current Visit: Yes Status: Resolved Plan to address problem: See full w/up, and management. see notes above.
--- NOTE | 2016-06-23 23:23 | XRay Report ---
FINAL REPORT PROCEDURE: XR CHEST 1V AP TECHNIQUE: Chest radiograph anteroposterior view. CPT 73609 HISTORY: Chest pain, wheezy COMPARISON: No prior studies are available for comparison. FINDINGS: Heart: Normal. Mediastinum/Vessels: Normal. Lungs/Pleural space: Atelectasis right lower lung. No effusion or pneumothorax. Bony thorax: No acute osseous abnormality. Life support devices: None. IMPRESSION: Mild right lower lung atelectasis.
[2016-06-24] MEDS: ZOSYN/NS 2.25 GM/50ML 2.25 GM/50 ML BAG IV SCH ×5 (00:07→23:13)
[2016-06-24] MEDS ORDERED: PROVENTIL IH PRN (01:50)
--- NOTE | 2016-06-24 04:09 | Event Note ---
Date: 06/24/16 Shortness of breath and right-sided chest discomfort. Patient states shortness of breath was worse when she got up to use the bathroom and when she attempted to lay flat at night. Difficult to rest laying flat was better during the day. Discomfort was on the right and especially when she tried to move or take a deep breath. Started patient on albuterol and Atrovent nebulizers and obtain chest x-ray which showed atelectasis. Patient already on antibiotics therefore was given IV Lasix 1. Echocardiogram may be warranted if continues. Also early physical therapy may also be an option for the a.m.
[2016-06-24] MEDS: PERCOCET 5/325 PO PRN ×3 (05:10→23:11)
[2016-06-24] MEDS: LASIX IV SCH (05:11)
[2016-06-24 06:47] LABS: Hematocrit 31.2 % (30.3-42.9); Hemoglobin 10.3 gm/dl (10.1-14.3); Mean Corpuscular HGB Conc 33 % (30-34); Mean Corpuscular Hemoglobin 27 pg (28-32); Mean Corpuscular Volume 83 fl (79-97); Platelet Count 127 K/mm3 (140-440); Red Blood Count 3.79 M/mm3 (3.65-5.03); Red Cell Distribution Width 18.8 % (13.2-15.2); White Blood Count 12.6 K/mm3 (4.5-11.0)
[2016-06-24 06:57] LABS: Albumin 2.4 g/dL (3.9-5); Alkaline Phosphatase 70 units/L (35-129); Anion Gap 21 mmol/L; Bilirubin,Total 0.4 mg/dL (0.1-1.2); Blood Urea Nitrogen 32 mg/dL (7-17); Calcium 6.8 mg/dL (8.4-10.2); Carbon Dioxide 24 mmol/L (22-30); Chloride 98.9 mmol/L (98-107); Glucose 78 mg/dL (65-100); Potassium 3.5 mmol/L (3.6-5.0); Sodium 140 mmol/L (137-145); Total Protein 4.7 g/dL (6.3-8.2)
[2016-06-24 07:18] LABS: Alanine Aminotransferase < 5 units/L (7-56)
--- NOTE | 2016-06-24 08:35 | Progress Note ---
Assessment and Plan - Patient Problems (1) CHRISTOPHER (acute kidney injury) Onset Date: 06/23/16 Current Visit: Yes Status: Acute Plan to address problem: Acute kidney Injury in the setting of hypotension, severe anemia, placental abruption and DIC. BP is better. Patient is non-oliguric. Creatinine continues to improve. (2) Hyperkalemia Current Visit: Yes Status: Acute Plan to address problem: Improved. Monitor K level. (3) Metabolic acidosis Current Visit: Yes Status: Acute Plan to address problem: Improved. (4) Intrauterine in Onset Date: 06/19/16 Current Visit: Yes Status: Resolved Qualifiers: Fetus number: single or unspecified fetus Qualified Code(s): O36.4XX0 - Maternal care for intrauterine , not applicable or unspecified (5) DIC (disseminated intravascular coagulation) Onset Date: 06/23/16 Current Visit: Yes Status: Resolved Plan to address problem: Followed by Heme-Onc. (6) Hypertension Current Visit: Yes Status: Acute Qualifiers: Hypertension type: H Plan to address problem: If needed will add calcium channel blockers. Subjective Date of service: 06/24/16 Principal diagnosis: s/p LTCS - POD #3; Acute renal failure; DIC; Hypertension Interval history: Patient is feeling better today. Objective - Vital Signs Vital signs: Vital Signs - 12hr 06/23/16 06/23/16 06/23/16 22:00 23:09 23:39 Temperature 98.9 F Pulse Rate 95 H Pulse Rate [ 95 H From Monitor] Respiratory 20 Rate Blood Pressure 135/96 Blood Pressure 135/94 [Left Arm] Blood Pressure [Right Arm] O2 Sat by Pulse 100 95 Oximetry 06/24/16 03:50 Temperature 98.1 F Pulse Rate Pulse Rate [ 85 From Monitor] Respiratory 20 Rate Blood Pressure Blood Pressure [Left Arm] Blood Pressure 150/104 [Right Arm] O2 Sat by Pulse 95 Oximetry - General Appearance General appearance: well-developed, well-nourished, other (no distress) EENT: PERRL, mucous membranes moist, hearing intact, vision intact Neck: no JVD, no carotid bruit, supple Respiratory: Present: Clear to Ascultation Cardiology: regular, S1S2, no murmurs Gastrointestinal: normoactive bowel sounds Integumentary: no rash, warm and dry Neurologic: no focal deficit, no asterixis, alert and oriented x3, CN 3-12 intact Musculoskeletal: other (no edema) Psychiatric: mood/affect appropriate, cooperative - Lab 06/24/16 05:47 06/24/16 05:47 Most recent lab results Calcium 6.8 mg/dL (8.4-10.2) L 06/24/16 05:47 Urine Creatinine 63.7 mg/dL (0.1-20.0) H 06/21/16 05:30 Urine Sodium 56 mEq/L 06/21/16 05:30
[2016-06-24] MEDS: THERAGRAN Tab PO SCH (09:49)
[2016-06-24] MEDS: FEOSOL PO SCH (09:49)
[2016-06-24] MEDS: COZAAR PO SCH (09:50)
--- NOTE | 2016-06-24 09:51 | Progress Note ---
Assessment and Plan - Patient Problems (1) 30 weeks gestation of Onset Date: 06/19/16 Current Visit: Yes Status: Resolved (2) Intrauterine in Onset Date: 06/19/16 Current Visit: Yes Status: Resolved Qualifiers: Fetus number: single or unspecified fetus Qualified Code(s): O36.4XX0 - Maternal care for intrauterine , not applicable or unspecified (3) Anuria Onset Date: 06/20/16 Current Visit: Yes Status: Resolved (4) Tachycardia with heart rate 121-140 beats per minute Onset Date: 06/20/16 Current Visit: Yes Status: Resolved (5) CHRISTOPHER (acute kidney injury) Onset Date: 06/23/16 Current Visit: Yes Status: Acute (6) DIC (disseminated intravascular coagulation) Onset Date: 06/23/16 Current Visit: Yes Status: Resolved (7) S/P primary low transverse Onset Date: 06/23/16 Current Visit: Yes Status: Resolved Plan to address problem: A: S/P LTCS - POD #4 Doing well Acute renal failure - improving. Being followed by Nephrology DIC - resolved. Being followed by Hematology Elevated BP - improved on Labetolol and Losartan P: Continue present management Pt is stable for discharge from an Ob standpoint, but will defer to Nephrology Subjective - Subjective Date of service: 06/24/16 Principal diagnosis: s/p LTCS - POD #4; Acute renal failure; DIC; Hypertension Interval history: Pt is feeling better, denies SOB. She is tolerating a reg diet without nausea or vomiting, ambulating and voiding without difficulty. Patient reports: appetite normal, voiding normally, pain well controlled, flatus , bowel movement, ambulating normally [place]: Objective - Vital Signs Latest vital signs: Vital Signs Temp Pulse Pulse Pulse Resp BP BP 06/24/16 03:50 98.1 F 85 20 06/23/16 23:39 98.9 F 95 H 20 135/94 06/23/16 23:09 95 H 135/96 06/23/16 22:00 06/23/16 16:00 98.6 F 99 H 18 133/95 06/23/16 14:00 103 H 27 H 135/97 06/23/16 13:31 102 H 24 122/87 06/23/16 13:00 101 H 30 H 122/87 06/23/16 12:31 103 H 29 H 138/96 06/23/16 12:00 98.7 F 105 H 103 H 28 H 138/96 06/23/16 11:33 107 H 22 126/87 06/23/16 11:00 99 H 23 126/87 06/23/16 10:31 101 H 29 H 137/107 06/23/16 10:19 137/107 BP Pulse Ox 06/24/16 03:50 150/104 95 06/23/16 23:39 95 06/23/16 23:09 06/23/16 22:00 100 06/23/16 16:00 99 06/23/16 14:00 90 06/23/16 13:31 94 06/23/16 13:00 92 06/23/16 12:31 91 06/23/16 12:00 88 06/23/16 11:33 88 06/23/16 11:00 89 06/23/16 10:31 93 06/23/16 10:19 Intake and Output 06/23/16 06/24/16 06/24/16 22:59 06:59 14:59 Intake Total 50 1010 Balance 50 1010 Intake: IV 50 50 ZOSYN/NS 2.25 GM/50ML 2. 50 50 25 gm In 50 ml @ 100 mls/ hr IV Q6HR [facility] Rx#: [id number] Oral 960 Other: Total, Intake Amount 960 Voiding Method Toilet # Voids Void 4 # Bowel Movements 0 - Exam Breasts: Present: deferred Cardiovascular: Present: Regular rate Lungs: Present: Clear to auscultation Abdomen: Present: normal appearance, soft Uterus: Present: normal, firm, fundal height below umbilicus Extremities: Present: normal Incision: Present: normal, dry, intact, other (ecchymosis on skin) - Labs Labs: Abnormal lab results 06/24/16 06/24/16 Range/Units 05:47 05:47 WBC 12.6 H (4.5-11.0) K/mm3 MCH 27 L (28-32) pg RDW 18.8 H (13.2-15.2) % Plt Count 127 L (140-440) K/mm3 Potassium 3.5 L (3.6-5.0) mmol/L BUN 32 H (7-17) mg/dL Creatinine 2.6 H (0.7-1.2) mg/dL Calcium 6.8 L (8.4-10.2) mg/dL ALT < 5 L (7-56) units/L Total Protein 4.7 L (6.3-8.2) g/dL Albumin 2.4 L (3.9-5) g/dL Laboratory Results - last 24 hr 06/24/16 06/24/16 05:47 05:47 WBC 12.6 H RBC 3.79 Hgb 10.3 Hct 31.2 MCV 83 MCH 27 L MCHC 33 RDW 18.8 H Plt Count 127 L Sodium 140 Potassium 3.5 L Chloride 98.9 Carbon Dioxide 24 Anion Gap 21 BUN 32 H Creatinine 2.6 H Estimated GFR 23 BUN/Creatinine Ratio 12.30 Glucose 78 Calcium 6.8 L Total Bilirubin 0.4 AST 24 ALT < 5 L Alkaline Phosphatase 70 Total Protein 4.7 L Albumin 2.4 L Albumin/Globulin Ratio 1.0
[2016-06-24] MEDS: NORMODYNE PO SCH ×2 (09:52→23:09)
[2016-06-24] MEDS: PRENATAL VITAMIN PO SCH (09:52)
[2016-06-24] MEDS ORDERED: LASIX IV SCH (10:00)
[2016-06-24] MEDS: XANAX PO PRN (12:30)
--- NOTE | 2016-06-24 12:56 | Progress Note ---
Assessment and Plan Assessment and Plan 1. DIC from placenta abruption: Improving with normalizing Fibrinogen level. 2. Acute Renal failure: Improving. Creatinine level decreasing 3. Hypokalemia: Will supplement. 4. Metabolic acidosis: Resolved 5. Intrauterine secondary to abruption placenta 6. Pancytopenia secondary to DIC. Holding anticoagulation Subjective Date of service: 06/24/16 Principal diagnosis: s/p LTCS - POD #3; Acute renal failure; DIC; Hypertension Interval history: No overnight events. Objective - Constitutional Vitals: Vital Signs - 12hr 06/24/16 06/24/16 06/24/16 03:50 08:00 09:50 Temperature 98.1 F 98.2 F Pulse Rate 98 H Pulse Rate [ 85 From Monitor] Pulse Rate [ 72 Left Radial] Respiratory 20 18 Rate Blood Pressure 147/93 Blood Pressure 150/104 147/93 [Right Arm] O2 Sat by Pulse 95 100 Oximetry 06/24/16 09:52 Temperature Pulse Rate 98 H Pulse Rate [ From Monitor] Pulse Rate [ Left Radial] Respiratory Rate Blood Pressure 147/93 Blood Pressure [Right Arm] O2 Sat by Pulse Oximetry General appearance: Present: no acute distress, well-nourished - EENT Eyes: PERRL, EOM intact ENT: hearing intact, clear oral mucosa Ears: bilateral: normal - Neck Neck: supple, normal ROM - Respiratory Respiratory effort: normal Respiratory: bilateral: CTA - Breasts Breasts: normal - Cardiovascular Rhythm: regular Heart Sounds: Present: S1 & S2. Absent: gallop, rub Extremities: pulses intact, No edema, normal color, Full ROM - Gastrointestinal General gastrointestinal: Present: soft, non-tender, non-distended, normal bowel sounds - Genitourinary Female genitourinary: normal - Integumentary Integumentary: clear, warm, dry - Musculoskeletal Musculoskeletal: 1, strength equal bilaterally - Neurologic Neurologic: moves all extremities - Psychiatric Psychiatric: memory intact, appropriate mood/affect, intact judgment & insight - Labs CBC & Chem 7: 06/24/16 05:47 06/24/16 05:47 Labs: Abnormal lab results 06/24/16 06/24/16 Range/Units 05:47 05:47 WBC 12.6 H (4.5-11.0) K/mm3 MCH 27 L (28-32) pg RDW 18.8 H (13.2-15.2) % Plt Count 127 L (140-440) K/mm3 Potassium 3.5 L (3.6-5.0) mmol/L BUN 32 H (7-17) mg/dL Creatinine 2.6 H (0.7-1.2) mg/dL Calcium 6.8 L (8.4-10.2) mg/dL ALT < 5 L (7-56) units/L Total Protein 4.7 L (6.3-8.2) g/dL Albumin 2.4 L (3.9-5) g/dL
--- NOTE | 2016-06-24 22:32 | Consultation ---
History of Present Illness - Reason for Consult Consult date: 06/24/16 - History of Present Illness Patient seen/examined, labs reviewed, case d/w patient. She appears to be improving in all aspect. Past History Past Medical History: hypertension Social history: no significant social history, single Family history: no significant family history Medications and Allergies Allergies Allergy/AdvReac Type Severity Reaction Status Date / Time No Known Allergies Allergy Verified 06/12/16 10:38 Home Medications Medication Instructions Recorded Confirmed Last Taken Type Multiple Vitamins For Women 1 tab PO DAILY 06/12/16 06/21/16 06/17/16 History Active Meds: Active Medications Acetaminophen (Tylenol) 650 mg PO Q4H PRN PRN Reason: Fever >100.5/VEGAS Acetaminophen/Hydrocodone Bitart ([place] 5/325) 1 each PO Q4H PRN PRN Reason: Pain, Moderate (4-6) Last Admin: 06/22/16 17:04 Dose: 1 each Albuterol (Proventil) 2.5 mg IH Q4HRT PRN PRN Reason: Shortness Of Breath Alprazolam (Xanax) 0.5 mg PO Q8H PRN PRN Reason: Anxiety Last Admin: 06/24/16 12:30 Dose: 0.5 mg Ferrous Sulfate (Feosol) 325 mg PO [facility] Last Admin: 06/24/16 09:49 Dose: 325 mg Furosemide (Lasix) 20 mg IV QDAY [facility] Last Admin: 06/24/16 05:11 Dose: 20 mg Piperacillin Sod/Tazobactam Sod (Zosyn/Ns 2.25 Gm/50ml) 2.25 gm in 50 mls @ 100 mls/hr IV Q6HR E[facility]A PRN Reason: Protocol Last Admin: 06/24/16 17:53 Dose: 100 mls/hr Labetalol HCl (Normodyne) 300 mg PO BID [facility] Last Admin: 06/24/16 09:52 Dose: 300 mg Magnesium Hydroxide (Milk Of Magnesia) 30 ml PO QHS PRN PRN Reason: Constip Unrelieved By Senna Multi-Ingredient Ointment (Lansinoh) 1 applic TP PRN PRN PRN Reason: dryness/cracking Multivitamins (Theragran Tab) 1 each PO DAILY [facility] Last Admin: 06/24/16 09:49 Dose: 1 each Multivitamins/Iron/Calcium ( Vitamin) 1 each PO QDAY [facility] Last Admin: 06/24/16 09:52 Dose: 1 each Oxycodone/Acetaminophen (Percocet 5/325) 2 tab PO Q6H PRN PRN Reason: Pain, Moderate (4-6) Last Admin: 06/24/16 17:03 Dose: 2 tab Senna (Senokot) 17.2 mg PO QHS PRN PRN Reason: Constipation Simethicone (Mylicon) 80 mg PO Q6H PRN PRN Reason: Gas pain Witch Gayla/Glycerin (Tucks Pad) 1 each TP PRN PRN PRN Reason: Hemorrhoids/cleansing/soothing Review of Systems Breasts: deferred Gastrointestinal: abdominal pain Exam - Constitutional Vitals: Temp Pulse Resp BP Pulse Ox 98.3 F 100 H 18 147/92 96 06/24/16 17:51 06/24/16 17:51 06/24/16 17:51 06/24/16 17:51 06/24/16 21:00 General appearance: Present: mild distress, well-nourished - EENT Eyes: Present: PERRL ENT: hearing intact, clear oral mucosa - Neck Neck: Present: supple, normal ROM - Respiratory Respiratory effort: normal Respiratory: bilateral: CTA - Cardiovascular Heart Sounds: Present: S1 & S2. Absent: rub, click - Extremities Extremities: pulses symmetrical, No edema Peripheral Pulses: within normal limits - Abdominal General gastrointestinal: Present: soft, non-tender, non-distended, normal bowel sounds Female genitourinary: Present: deferred - Rectal Rectal Exam: deferred - Integumentary Integumentary: Present: clear, warm, dry - Musculoskeletal Musculoskeletal: gait normal, strength equal bilaterally - Psychiatric Psychiatric: appropriate mood/affect, intact judgment & insight - Neurologic Neurologic: CNII-XII intact, moves all extremities Results - Labs CBC & Chem 7: 06/24/16 05:47 06/24/16 05:47 Labs: Abnormal lab results 06/22/16 06/24/16 06/24/16 Range/Units 10:28 05:47 05:47 WBC 12.6 H (4.5-11.0) K/mm3 MCH 27 L (28-32) pg RDW 18.8 H (13.2-15.2) % Plt Count 127 L (140-440) K/mm3 Potassium 3.5 L (3.6-5.0) mmol/L BUN 32 H (7-17) mg/dL Creatinine 2.6 H (0.7-1.2) mg/dL Calcium 6.8 L (8.4-10.2) mg/dL ALT < 5 L (7-56) units/L Total Protein 4.7 L (6.3-8.2) g/dL Albumin 2.4 L (3.9-5) g/dL Miscellaneous Test Flexitest 1 H Assessment and Plan - Patient Problems (1) Hyperkalemia Current Visit: Yes Status: Acute Plan to address problem: deffer to the renal service. resolved. (2) Intrauterine in Onset Date: 06/19/16 Current Visit: Yes Status: Resolved Qualifiers: Fetus number: single or unspecified fetus Qualified Code(s): O36.4XX0 - Maternal care for intrauterine , not applicable or unspecified Plan to address problem: the fetus is already evacuated, continue to tx the underlying issues. Much improved. (3) CHRISTOPHER (acute kidney injury) Onset Date: 06/23/16 Current Visit: Yes Status: Acute Plan to address problem: Follow renal service. (4) DIC (disseminated intravascular coagulation) Onset Date: 06/23/16 Current Visit: Yes Status: Resolved Plan to address problem: See full w/up, and management. see notes above.
[2016-06-25] MEDS: XANAX PO PRN ×2 (00:12→10:06)
[2016-06-25] MEDS: ZOSYN/NS 2.25 GM/50ML 2.25 GM/50 ML BAG IV SCH (05:24)
[2016-06-25 06:10] LABS: BUN/Creatinine Ratio 12.27; Calcium 7.1 mg/dL (8.4-10.2); Magnesium 1.6 mg/dL (1.7-2.3); Phosphorous 5.7 mg/dL (2.5-4.5); Potassium 3.6 mmol/L (3.6-5.0)
--- NOTE | 2016-06-25 08:16 | Progress Note ---
Assessment and Plan - Patient Problems (1) CHRISTOPHER (acute kidney injury) Onset Date: 06/23/16 Current Visit: Yes Status: Acute Plan to address problem: Acute kidney Injury in the setting of hypotension, severe anemia, placental abruption and DIC. BP is better. Patient remains non-oliguric. Creatinine continues to improved. Replete Mg. (2) Hyperkalemia Current Visit: Yes Status: Acute Plan to address problem: Improved. Monitor K level. (3) Metabolic acidosis Current Visit: Yes Status: Acute Plan to address problem: Improved. (4) Intrauterine in Onset Date: 06/19/16 Current Visit: Yes Status: Resolved Qualifiers: Fetus number: single or unspecified fetus Qualified Code(s): O36.4XX0 - Maternal care for intrauterine , not applicable or unspecified (5) DIC (disseminated intravascular coagulation) Onset Date: 06/23/16 Current Visit: Yes Status: Resolved Plan to address problem: Followed by Heme-Onc. (6) Hypertension Current Visit: Yes Status: Acute Qualifiers: Hypertension type: H Plan to address problem: BP is controlled. Subjective Date of service: 06/25/16 Principal diagnosis: s/p LTCS - POD #3; Acute renal failure; DIC; Hypertension Interval history: Patient c/o exertional shortness of breath. Objective - Vital Signs Vital signs: Vital Signs - 12hr 06/24/16 06/24/16 06/24/16 21:00 23:09 23:49 Temperature Pulse Rate 93 H Pulse Rate [ 92 H Anterior Bilateral Throughout] Pulse Rate [ From Monitor] Respiratory Rate Respiratory 16 Rate [Anterior Bilateral Throughout] Blood Pressure 131/77 Blood Pressure [Right Arm] O2 Sat by Pulse 96 Oximetry 06/24/16 06/25/16 06/25/16 23:54 00:06 00:07 Temperature 97.7 F Pulse Rate Pulse Rate [ 91 H Anterior Bilateral Throughout] Pulse Rate [ 93 H From Monitor] Respiratory 20 Rate Respiratory 18 Rate [Anterior Bilateral Throughout] Blood Pressure Blood Pressure 131/77 [Right Arm] O2 Sat by Pulse 97 96 Oximetry - General Appearance General appearance: well-developed, well-nourished, other (RN was present in the room, no distress) EENT: PERRL, mucous membranes moist, hearing intact, vision intact Neck: no carotid bruit, supple Respiratory: Present: Clear to Ascultation Cardiology: regular, S1S2, no murmurs Gastrointestinal: normoactive bowel sounds, no tenderness, no distended Integumentary: no rash, warm and dry Neurologic: no focal deficit, no asterixis, alert and oriented x3, CN 3-12 intact Musculoskeletal: other (trace pedal edema) Psychiatric: mood/affect appropriate, cooperative - Lab 06/24/16 05:47 06/25/16 04:55 Most recent lab results Calcium 7.1 mg/dL (8.4-10.2) L 06/25/16 04:55 Phosphorus 5.7 mg/dL (2.5-4.5) H 06/25/16 04:55 Magnesium 1.6 mg/dL (1.7-2.3) L 06/25/16 04:55 Urine Creatinine 63.7 mg/dL (0.1-20.0) H 06/21/16 05:30 Urine Sodium 56 mEq/L 06/21/16 05:30
[2016-06-25] MEDS ORDERED: MAGNESIUM SULFATE 2GM/50ML 2 GM/50 ML BAG IV ONE (09:30)
[2016-06-25] MEDS: THERAGRAN Tab PO SCH (10:04)
[2016-06-25] MEDS: PRENATAL VITAMIN PO SCH (10:05)
[2016-06-25] MEDS: FEOSOL PO SCH (10:05)
[2016-06-25] MEDS: NORMODYNE PO SCH (10:06)
--- NOTE | 2016-06-25 10:17 | Progress Note ---
Assessment and Plan POD # 5 s/p Primary LTCS for IUP @ 30 3/7 weeks - DIC resolved -Acute renal failure (see Nephrology notes) -Elevated BP resolved Meds: -labetalol 300mg TID -Losarten 100mg QD P: -Nehrology, Int Medicine and Hematology notes reviewed, Thx -Continue routine Post-op care -Clear for D/C from OBGYN standpoint, await Nephrology and Hospitalist clearance - Patient Problems (1) S/P primary low transverse Onset Date: 06/23/16 Current Visit: Yes Status: Resolved (2) DIC (disseminated intravascular coagulation) Onset Date: 06/23/16 Current Visit: Yes Status: Resolved (3) Intrauterine in Onset Date: 06/19/16 Current Visit: Yes Status: Resolved Qualifiers: Fetus number: single or unspecified fetus Qualified Code(s): O36.4XX0 - Maternal care for intrauterine , not applicable or unspecified (4) Electrolyte abnormality Current Visit: Yes Status: Acute Subjective - Subjective Date of service: 06/25/16 Principal diagnosis: s/p LTCS - POD #5; Acute renal failure; DIC; Hypertension Interval history: Patient seen and examined. No fever or chills, no N/V, c/o SOB but sats are >90 on RM air. Has appropriate piyush-incisional pain Pressure elevated yesterday max systolic in the 170s to 190s/100's. Started on antihypertensives some improvement noted Patient also received 1 g magnesium bolus (No maintenance dose due to renal failure) Nephrology and Hem notes reviewed, thx Patient reports: appetite normal, voiding normally, pain well controlled, ambulating normally, no dizzy ambulation [place]: Objective - Vital Signs Latest vital signs: Vital Signs Temp Pulse Pulse Pulse Pulse Resp Resp 06/25/16 00:07 06/25/16 00:06 91 H 18 06/24/16 23:54 97.7 F 93 H 20 06/24/16 23:49 92 H 16 06/24/16 23:09 93 H 06/24/16 21:00 06/24/16 17:51 98.3 F 100 H 18 BP BP Pulse Ox 06/25/16 00:07 96 06/25/16 00:06 06/24/16 23:54 131/77 97 06/24/16 23:49 06/24/16 23:09 131/77 06/24/16 21:00 96 06/24/16 17:51 147/92 100 Intake and Output 06/24/16 06/25/16 06/25/16 22:59 06:59 14:59 Intake Total 50 50 Balance 50 50 Intake: IV 50 50 ZOSYN/NS 2.25 GM/50ML 2. 50 50 25 gm In 50 ml @ 100 mls/ hr IV Q6HR [facility] Rx#: [id number] Other: Voiding Method Toilet Weight 80.739 kg Patient Weight 06/26/16 06:59 Weight 80.739 kg - Exam Abdomen: Present: normal appearance, soft. Absent: distention, tenderness, guarding, rigidity Incision: Present: dry, intact - Labs Labs: Abnormal lab results 06/22/16 06/25/16 Range/Units 10:28 04:55 BUN 27 H (7-17) mg/dL Creatinine 2.2 H (0.7-1.2) mg/dL Calcium 7.1 L (8.4-10.2) mg/dL Phosphorus 5.7 H (2.5-4.5) mg/dL Magnesium 1.6 L (1.7-2.3) mg/dL Miscellaneous Test Flexitest 1 H
[2016-06-25] MEDS: LASIX IV SCH (10:35)
--- NOTE | 2016-06-25 10:57 | Discharge Summary ---
Providers - Providers Date of Admission: 06/19/16 19:46 Date of discharge: 06/25/16 Attending physician: JONO HILL MD 06/20/16 09:45 Consult to Physician [CONS] Urgent Consulting Provider: RONI MANZANARES I Reason For Exam: Acute renal failure with anuria Place consult to:: Dr Manzanares Notified:: Answering service Phone number called:: [phone] Was contact made?: Yes If yes, spoke with:: Mela Time called:: 09:48 06/20/16 12:12 Consult to Physician [CONS] Urgent Consulting Provider: MAGALIE HARRISON Reason For Exam: Hyperkalemia Place consult to:: Dr Harrison Notified:: Dr Harrison Phone number called:: [phone] Was contact made?: Yes If yes, spoke with:: Dr Harrison Time called:: 10:00 06/20/16 13:31 Consult to Physician [CONS] Routine Consulting Provider: GORDON SY Reason For Exam: DIC Place consult to:: Cam Notified:: PLEASE CALL MD IN AM Was contact made?: Yes Comment:: said to place patient on list 06/21/16 23:25 Consult to Physician [CONS] Urgent Consulting Provider: ANSHU BAIRES Reason For Exam: HTN Place consult to:: hospitalist Notified:: yes Phone number called:: [phone] Was contact made?: Yes If yes, spoke with:: Dr. Baires Time called:: 23:00 Primary care physician: CHEMICAL ANALYST Hospitalization Condition: Stable Disposition: DISCHARGED TO HOME OR SELFCARE Time spent for discharge: 35 mins Core Measure Documentation - Palliative Care Palliative Care/ Comfort Measures: Not Applicable - Core Measures Any of the following diagnoses?: none - VTE Discharge Requirements Deep Vein Thrombosis/Pulmonary Embolism Present on Admission: No Exam - Constitutional Vitals: Temp Pulse Resp BP Pulse Ox 97.7 F 89 18 156/109 96 06/24/16 23:54 06/25/16 10:06 06/25/16 00:06 06/25/16 10:06 06/25/16 00:07 Plan Activity: advance as tolerated, fall precautions Diet: low fat Follow up with: PRIMARY CAREMD [Primary Care Provider] - 7 Days SHERRI BECK MD [Staff Physician] - 7 Days GORDON SY DO [Staff Physician] - 7 Days EMILY SOLER MD [Staff Physician] - 7 Days Prescriptions: Sennosides Tab [Senokot] 17.2 mg PO QHS PRN #30 tablet PRN Reason: Constipation ALBUTEROL Inhaler [ProAir HFA Inhaler] 2 puff IH QID PRN #1 inhalation PRN Reason: Shortness Of Breath ALPRAZolam [Xanax TAB] 0.5 mg PO Q8H PRN #10 tablet PRN Reason: Anxiety Ferrous Sulfate [Feosol 325 MG tab] 325 mg PO QDAY #30 tablet HYDROcodone/APAP 5-325 [Rochelle 5-325 mg TAB] 1 each PO Q4H PRN #20 tablet PRN Reason: Pain, Moderate (4-6) Labetalol [Normodyne TAB] 300 mg PO BID #60 tablet Vit-Fe Fumar-FA [ Vitamin] 1 each PO QDAY #30 tablet
[2016-06-25] MEDS ORDERED: ZOSYN/NS 4.5GM/100ML 4.5 GM/100 ML VIAL IV SCH (14:00)
--- NOTE | 2016-06-25 14:04 | Nuclear Medicine Report ---
LUNG SCAN, VENTILATION AND PERFUSION: History: Evaluate for PE. Findings: Inhalation of Xenon gas demonstrates a normal distribution of the activity throughout both lungs. The wash out phases show no focal retention of activity. After injection of Technetium 99m macroaggregated albumin gamma camera imaging of the lungs in multiple projections demonstrates normal pulmonary contours with a homogeneous distribution of activity. No focal areas of perfusion deficiency are identified. IMPRESSION: Normal study.
--- NOTE | 2016-06-25 14:14 | XRay Report ---
CHEST 2 VIEWS INDICATION: Evaluate for pulmonary embolism. COMPARISON: 06/23/2016 FINDINGS: Frontal and lateral chest radiographs demonstrate poorer inspiration with exaggerated cardiomediastinal silhouette; cardiomegaly not excluded. Congestive bronchovascular crowding and haziness again noted with subtle pleural effusions not entirely excluded. Right hemidiaphragm may be slightly elevated. Unremarkable bones. CONCLUSION: Mild CHF and hypoventilatory radiographic appearance, as described. Please correlate. Thank you for the opportunity to participate in this patient's care.
[2016-06-25 15:59] VITALS: BP 154/104
[2016-06-25] MEDS: PERCOCET 5/325 PO PRN (17:49)
== END 2016-06-25 18:50 | disposition home or self-care (01) | DRG 765 ==
LOC: TRG 18:08 → LD 19:46 → TRG 19:46 → CC1 06-20 12:30 → 2B-SURG 06-23 15:08
PROVIDERS: ADMIT Obstetrics & Gynecology; ATTEND Internal Medicine
PROC: 10D00Z1 Extraction of Products of Conception, Low, Open Approach (ICD-10-PCS; principal; 2016-06-20)
PROC: 30233N1 Transfusion of Nonautologous Red Blood Cells into Peripheral Vein, Percutaneous Approach (ICD-10-PCS; 2016-06-20)
PROC: 30233K1 Transfusion of Nonautologous Frozen Plasma into Peripheral Vein, Percutaneous Approach (ICD-10-PCS; 2016-06-20)
PROC: 30233L1 Transfusion of Nonautologous Fresh Plasma into Peripheral Vein, Percutaneous Approach (ICD-10-PCS; 2016-06-20)
PROC: 30233R1 Transfusion of Nonautologous Platelets into Peripheral Vein, Percutaneous Approach (ICD-10-PCS; 2016-06-21)
PROC: 4A033R1 Measurement of Arterial Saturation, Peripheral, Percutaneous Approach (ICD-10-PCS; 2016-06-22)
DX: O36.4XX0 Maternal care for intrauterine death, not applicable or unspecified (principal); O88.213 Thromboembolism in pregnancy, third trimester; O45.023 Premature separation of placenta with disseminated intravascular coagulation, third trimester; O26.833 Pregnancy related renal disease, third trimester; N17.9 Acute kidney failure, unspecified; O10.913 Unspecified pre-existing hypertension complicating pregnancy, third trimester; O99.113 Other diseases of the blood and blood-forming organs and certain disorders involving the immune mechanism complicating pregnancy, third trimester; O99.413 Diseases of the circulatory system complicating pregnancy, third trimester; Z3A.30 30 weeks gestation of pregnancy; E87.5 Hyperkalemia; D69.6 Thrombocytopenia, unspecified; O99.013 Anemia complicating pregnancy, third trimester; Z23 Encounter for immunization; Z37.1 Single stillbirth
CPT/HCPCS: 36415; 36600; 71010; 71020; 76770; 76816; 78582; 80048; 80053; 80307; 81001; 82550; 82570; 82803; 82962; 83735; 84100; 84132; 84300; 85007; 85014; 85018; 85025; 85027; 85301; 85379; 85384; 85610; 85730; 86592; 86706; 86762; 86803; 86850; 86900; 86901; 86920; 87086; 87806; 88307; 89050; 90686; 90707; 93005; 93010; 94640; 94760; A9540; A9558; C9250; J0360; J0595; J0690; J1200; J1815; J1885; J1940; J2210; J2270; J2405; J2543; J2590; J2704; J2765; J2920; J3475; J7030; J7040; J7120; J7121; P9016; P9017; P9035

== ENCOUNTER 2016-07-17 11:40 | Emergency (ER) | payer OTHER | END 2016-07-17 11:41 | disposition left against medical advice (07) | LOC: ED 11:40 | DX: Z48.02 Encounter for removal of sutures (principal); Z53.21 Procedure and treatment not carried out due to patient leaving prior to being seen by health care provider ==